=== PATIENT | male | born 1935 | race African-American/Black ===

== ENCOUNTER 2017-10-28 08:56 | Day surgery (SDC) | payer OTHER ==
[2017-10-28] VITALS (7 sets, daily range): BP systolic 124–144; BP diastolic 83–97; PULSE 69–90; RESP 16–20; TEMP 97.5–97.8; O2SAT 92–96
[~2017-10-28] VITALS: Ht 180.3 cm; Wt 97.5 kg
[~2017-10-28 08:56] MED LIST: ALPR0.25 PO; CLON.1 PO; COEN400C PO; FISH100020 PO; HYDR100T2 PO; LISI20 PO; METO50TA PO; RIVA20 PO; TAB-TAB PO
[2017-10-28] MEDS ORDERED: LACTATED RINGER'S 1000 ML IV PRN (09:30)
[2017-10-28] MEDS ORDERED: MUPIROCIN 2% OINT 1 APPLIC/GM SYR NASAL SCH (09:30)
[2017-10-28] MEDS ORDERED: NS 1000 ML IV SCH (09:30)
[2017-10-28] MEDS ORDERED: INSULIN HUMAN REGULAR 1,000 UNITS/10 ML VIAL SQ PRN (09:30)
[2017-10-28] MEDS ORDERED: CHLORHEXIDINE GLUCONATE 2 % 1 PACK (2 CLOTHS) TOPICAL PRN (09:30)
[2017-10-28] MEDS ORDERED: POVIDONE IODINE 5% (ANTISEPSIS KIT) 4 APPLICATIONS EACH NARE PRN (09:30)
[2017-10-28] MEDS ORDERED: SODIUM CHLORID 0.9% 500 ML IV PRN (09:30)
[2017-10-28] MEDS ORDERED: LORazepam 1 MG TAB SL SCH (09:30)
[2017-10-28] MEDS ORDERED: CHLORHEXIDINE GLUCONATE 2 % 1 PACK (2 CLOTHS) TOPICAL SCH (09:30)
[2017-10-28] MEDS ORDERED: POVIDONE IODINE 5% (ANTISEPSIS KIT) 4 APPLICATIONS EACH NARE SCH (09:30)
[2017-10-28] MEDS ORDERED: ceFAZolin 2 GM PREMIX 50 ML IV SCH (09:30)
[2017-10-28] MEDS ORDERED: METOPROLOL TARTRATE 25 MG TAB PO PRN (09:30)
[2017-10-28] MEDS ORDERED: DILT0.05 PO (09:56)
[2017-10-28] MEDS ORDERED: FURO40TA PO (09:56)
[2017-10-28] MEDS ORDERED: TAMS0.4C4 PO (09:56)
[2017-10-28] MEDS ORDERED: KLOR20TA3 PO (09:56)
[2017-10-28] MEDS ORDERED: XARE15TA PO (09:56)
[2017-10-28] MEDS ORDERED: METO50TA PO (09:56)
[2017-10-28] MEDS ORDERED: LISI40TA PO (09:56)
[2017-10-28 10:03] LABS: BASOPHIL % 0.7 % (0.0-2.0); EOSINOPHIL % 0.9 % (0.0-4.0); HEMATOCRIT 50.7 % (39.0-51.0); HEMO FLAGS DIFF FINAL; LYMPH % 23.8 % (9.0-44.0); LYMPHOCYTE # 1.1 TH/MM3 (1.0-4.8); MEAN CELL VOLUME 77.9 FL (80.0-100.0); MEAN CORPUSCULAR HEMOGLOBIN 24.1 PG (27.0-34.0); MEAN CORPUSCULAR HGB CONC 30.9 % (32.0-36.0); MONO % 11.8 % (0.0-8.0); NEUT % 62.8 % (16.0-70.0); PLATELET COUNT 159 TH/MM3 (150-450); RED BLOOD COUNT 6.51 MIL/MM3 (4.50-5.90); RED CELL DISTRIBUTION WIDTH 19.5 % (11.6-17.2); WHITE BLOOD COUNT 4.7 TH/MM3 (4.0-11.0)
[2017-10-28 10:19] LABS: POTASSIUM 3.3 MEQ/L (3.5-5.1)
[2017-10-28] MEDS ORDERED: VANCOMYCIN 1000 MG/NS 250 ML IV SCH ×2 (10:30)
[2017-10-28 10:53] LABS: APTT (PATIENT) 32.2 SEC (24.3-30.1); INTERNATIONAL NORMALIZED RATIO 1.5 RATIO; PROTHROMBIN TIME - PATIENT 16.7 SEC (9.8-11.6)
[2017-10-28] MEDS ORDERED: LIDOCAINE HCL 2% 50 ML VIAL ONE (14:11)
[2017-10-28] MEDS ORDERED: VANCOMYCIN 500 MG VIAL ONE (14:11)
--- NOTE | 2017-10-28 14:20 | CATHPROC ---
[facility] HIS Report Study Information Study Number Admission Scheduled Start Study Start [id number] Oct 28 2017 8:56AM 10/28/2017 Oct 28 2017 11:58AM [place] [facility] Cardiac Pacer/ICD Admit Source Facility Department Other [facility] - Foreign Exchange Clerk Physician and Clinical Staff Initial Dee Song Printed Circuit Board Drafter Flaco Henson,RT(R) Printed Circuit Board Drafter Sabina Saez,LENS BLOCKER TECH2 Other Anesthesia, MANAGER LOAN Recorder Magalis Rey,GRETCHEN Scrub Stefanie Sheridan,KLEBER Procedures Performed Procedure Cardioversion Equipment Time Transit Survey Worker Description Size Mfg Part Number Used/Scraped BIOSENSE ETIENNE CATHETER, CELSIUS DS, 8MM, F [id number] 13:36 FR 7 Used INC. TYPE QUAD *[id number] 13:34 [employer] INDUSTRIES PACK, CCL CUSTOM * Used *[id number] 13:34 [employer] PACER GONZALEZ, LIMB * 2530 *[id number] Used [id number] 13:34 [employer] BLANKET,WARM AIR CCL * Used *[id number] 781198 13:35 [employer] MED[employer] CATHETER, JSN, QUAD FR 5 Used *[id number] 299750 13:35 [employer] MED[employer] CATHETER, JSN, QUAD FR 5 Used *[id number] 413059 13:35 [employer] MED[employer] CATHETER, JSN, QUAD FR 5 Used *[id number] 13:34 [employer] ELECTRODE KIT, ZHEN X SURFACE * Used *[id number] 779844 13:35 [employer] SHEATH, EPS, FR5 FAST CATH FR 5 Used *[id number] 739779 13:35 [employer] MED[employer] SHEATH, EPS, FR5 FAST CATH FR 5 Used *[id number] 312388 13:35 [employer] SHEATH, EPS, FR5 FAST CATH FR 5 Used *[id number] 548426 13:35 [employer] MED[employer] SHEATH, EPS, FR6 FAST CATH FR 6 Used *[id number] 296270 13:35 [employer] SHEATH, EPS, FR8 FAST CATH FR 8 Used *[id number] CATHETER, ACUNAV FR10 ICE [id number] 13:55 KARLEE FR 10 Used (KARLEE) *[id number] [facility] PAD, ELECTROSURGICAL 13:34 * [id number] *[id number] Used SURGICAL GROUNDING (BLUE) History: Allergies Allergy Reaction No Known Allergies History: Risk Factors Hypertension Dyslipidemia Previous Heart Failure Yes Yes Yes Labs Hgb (g/dl) Hct (%) RBC (MIL/MM3) WBC (l/cumm) Platelets (thousands) 11.60-17.00 35.00-51.00 4.00-5.90 4.00-11.00 150.00-450.00 15.0 50 6.5 4.7 159 Glucose (mg/dl) BUN (mg/dl) Creatinine (mg/dl) BUN:Creatinine (1:x) 74.00-106.00 7.00-18.00 0.50-1.30 10.00-20.00 89 27 1.9 14.2 Na (meq/l) K (meq/l) 136.00-145.00 3.50-5.10 142 3.3 INR (PTT:PT) 0.90-1.10 1.5 Medication Medication Total Dose (Bolus/Oral) Medication Total Dosage/Unit 1% XYLOCAINE 40 mL Medications (Bolus/Oral) Medication Time Given Dosage/Unit Administered By Reason 1% XYLOCAINE 10/28/2017 1:39:00 PM 20 mL Neri, Dee 20 mL 1% XYLOCAINE given in lab by Dee He in Left Groin via Subcutaneous. 1% XYLOCAINE 10/28/2017 1:39:29 PM 20 mL Neri, Hanscy 20 mL 1% XYLOCAINE given in lab by Dee He in Right Groin via Subcutaneous. Initial Case Assessment Cardiovascular HR Rhythm NIBP Chest Pain 87 aflttr 168/110 0 Edema Present Skin color Skin Mild Normal Warm Dry Circulatory - Right Pulses Dorsalis Pedis Radial 1 1 Scale (0,1,2,3,4,d) Circulatory - Left Pulses Dorsalis Pedis Radial 1 1 Scale (0,1,2,3,4,d) Circulatory - Lower Extremities Color Lower Right Color Lower Left Normal Normal Neurological State Oriented to time-place- Alert Moves all extremities person Respiration - General Respiration Rate SpO2 (%) (B/min) 20 95 Chronological Log Time Study Chronological Log 12:57:22 Patient arrived via Bed. 12:57:28 Patient Name, D.O.B, / Armband Verified By R.N. 12:57:31 Consent signed by the physician and the patient and verified by the Foreign Exchange Clerk staff. 12:57:35 Pre-op and post- op instructions given; patient acknowledges understanding of instructions. 12:57:44 Verbal Stimulation=2 Physical Stimulation=2 Airway=2 Respiration=2 TOTAL=8. (0=absent, 1=li mited, 2=present) 12:58:58 Patient has been NPO for More than 6Hrs. 12:59:13 Patient Warmer Placed on the Table. 12:59:17 Disposable Defibrillator Pads Placed On Patient. 13:01:08 Skin Breakdown- 13:01:21 Rochelle Prominences Protected 13:01:25 A # 20 IV was noted in the Antecubital (left). Grade = 0 0.9ns kvo 13:01:26 A # 20 IV was noted in the Antecubital (right). Grade = 0 0.9ns kvo 13:01:27 History and physical on the chart or being dictated. 13:01:35 Anesthesia at bedside. Assumes care of patient. Assessment: Initial Case, HR=87 BPM, Rhythm=aflttr, ZFVT=833/110 mmhg, Chest Pain=0, Edema=Mild , Color=Normal, Skin = Warm, Dry Right Pulses: Feliciano Ped=1, Radial=1 Left Pulses: Feliciano Ped=1, Radial=1 13:17:32 Lower Right Extremities: Color=Normal Lower Left Extremities: Color=Normal Neurological: State=Alert, Ox3, ZAVALA Respiration: Resp=20 B/min, SpO2=95 % 13:18:23 Table restraints applied according to hospital policy 13:20:30 MD arrived. 13:25:54 Condom catheter placced for pt comfort and by request. 13:36:24 Bilateral groins prepped with 2% chlorhexidine, and draped after a 3 minute waiting time. Time Out. Correct patient, procedure, procedure equipment, site and side verified with physicia n present. Time 13:38:17 concurred by MD, individual staff and MANAGER LOAN. Time Out #2 - Consents verified, patient in correct position, all results are labled and displa yed, safety precautions 13:38:40 taken, antibiotics administered. Time out concurred by MD, individual staff and MANAGER LOAN in procedu re 13:38:51 Case Start 13:39:00 20 mL 1% XYLOCAINE given in lab by Dee He in Left Groin via Subcutaneous. 13:39:12 Vascular access was obtained in the Fem Art (left). Pressure held by DC. switched to r ight groin. 13:39:29 20 mL 1% XYLOCAINE given in lab by Dee He in Right Groin via Subcutaneous. 13:39:54 Vascular access was obtained in the Fem Vein (right). 13:39:58 Vascular access was obtained in the Fem Vein (right). 13:40:00 Vascular access was obtained in the Fem Vein (right). 13:40:18 Vascular access was obtained in the Fem Vein (right). 13:41:45 A SHEATH, EPS, FR5 FAST CATH FR 5 was advanced into the Fem Vein (right) using the Modified Seldinger technique. 13:41:52 A SHEATH, EPS, FR5 FAST CATH FR 5 was advanced into the Fem Vein (right) using the Modified Seldinger technique. 13:46:28 A SHEATH, EPS, FR6 FAST CATH FR 6 was advanced into the Fem Vein (right) using the Modified Seldinger technique. 13:46:41 A SHEATH, EPS, FR8 FAST CATH FR 8 was advanced into the Fem Vein (right) using the Modified Seldinger technique. A CATHETER, JSN, QUAD FR 5 was advanced vis Fem Vein (right) and placed in the CS. Placement w as visually 13:49:59 confirmed under fluoroscopy. A CATHETER, JSN, QUAD FR 5 was advanced vis Fem Vein (right) and placed in the HRA. Placement was visually 13:52:13 confirmed under fluoroscopy. A CATHETER, JSN, QUAD FR 5 was advanced vis Fem Vein (right) and placed in the HIS. Placement was visually 13:54:35 confirmed under fluoroscopy. A CATHETER, CELSIUS DS, 8MM, F TYPE QUAD FR 7 was advanced vis Fem Vein (right) and placed in the RA. 13:55:25 Placement was visually confirmed under fluoroscopy. 13:57:24 ABLATION IN PROGRESS 14:04:24 ECG rhythm of ~RHYTHMS~ noted. Patient cardioverted at 200 joules. Success LEFT ATRIAL TAC HYCARDIA 14:05:00 ABLATION DONE 14:05:05 Case End 14:09:03 THIS PORTION OF THE CASE IS COMPLETE, IT WILL NOW TRANSITION INTO AN ICD IMPLANT End Study - Contrast Media Used In Study Contrast Total Opened (mL) Total Used (mL) Total Wasted (mL) Unspecified 0 0 0 End Study - Maximum Contrast Load Max Contrast Load (mL) 256.1 End Study - Radiation Exposure Fluoro Time (minutes) 6.5 End Study - Patient Disposition Complications Transferred To No Telemetry Bed
--- NOTE | 2017-10-28 15:18 | CATHPROC ---
[facility] HIS Report Study Information Study Number Admission Scheduled Start Study Start [id number] Oct 28 2017 8:56AM 10/28/2017 Oct 28 2017 2:12PM [place] [facility] Electrophysiology Study Admit Source Facility Department Other [facility] - Client Services Associate Physician and Clinical Staff Initial Dee Song District Traffic Chief Stefanie Sheridan,KLEBER Other Anesthesia, GOLF CLUB MAKER Recorder Magalis Rey,RN Scrub Se, Sabina,FLAT[employer] DRIVER TECH2 Procedures Performed Procedure Lead Insertion Equipment Time Steward/Stewardess Description Size Mfg Part Number Used/Scraped DERMABOND, ADHESIVE SKIN [id number] 14:14 CORDIS/PACER * Used GLUE MINI *[id number] 14:14 MEDLINE INDUSTRIES SUTURE, STRIP PLUS 1/2" * Used *[id number] 14:14 MEDLINE PACER GONZALEZ, LIMB * 2530 *[id number] Used [id number] 14:14 MEDLINE PACER PACK, PACER CUSTOM * Used *[id number] 14:24 Orca Digital PACER SAFE SHEATH, FR7, 13CM FR 7 [id number] Used 14:24 [employer] Digital PACER SAFE SHEATH, FR7, 13CM FR 7 [id number] Used 14:27 Needle Sponge Count 2 22 Used 14:27 Needle Sponge Count 20 200 Used 14:24 Needle Sponge Count 3 3 Used SUTURE, 0 ETHIBOND [CT1] (CX21D), 8pk SUTURE, 2-0 VICRYL [CT1] ([id number]) SUTURE, 2-0 VICRYL [CT1] (ZCC325W) [id number] 14:14 [employer] BLANKET,WARM AIR CCL * Used *[id number] DEFIBRILLATOR, FORTIFY 14:56 [facility] [employer]ICAL VVEVVVIRV [id number] Used SHANIA GUTIÉRREZ LEAD, DURATA ACTIVE FIXATION 7121Q-65 14:39 [facility] [employer]ICAL 65CM Used 7121/65 *[id number] LEAD, TENDRIL SDX 1688TC 1688TC/52CM 14:44 [facility] [employer] 52CM Used 52CM *[id number] [facility] PAD, ELECTROSURGICAL 14:14 * [id number] *[id number] Used SURGICAL GROUNDING ORANGE 4273-8812 14:14 [employer] AFSHIN. / * Used *96486 Equipment Model, Serial, Lot Number and Expiration Data Description Model Number Serial Number Lot Number Expiration Date DEFIBRILLATOR, FORTIFY ASSURA [id number] 07-31-2019 DR PEREZ, DURATA ACTIVE FIXATION 7121Q-65 [id number] 11-30-2017 7121/65 LEAD, TENDRIL SDX 1688TC 52CM 1688TC [id number] 01-29-2020 Medication Medication Total Dose (Bolus/Oral) Medication Total Dosage/Unit 2% XYLOCAINE 50 mL Medications (Bolus/Oral) Medication Time Given Dosage/Unit Administered By Reason 2% XYLOCAINE 10/28/2017 2:36:14 PM 50 mL Anesthesia, GOLF CLUB MAKER 50 mL 2% XYLOCAINE given in lab by Anesthesia, GOLF CLUB MAKER via Subcutaneous. Ordered by Dee He. Medication (Drip) Medication Time Given Dosage/Unit Concentration/Unit Diluent (ml) Solution ANCEF 10/28/2017 2:10:00 PM 2 g 2 g ANCEF given in lab by Anesthesia, GOLF CLUB MAKER via Peripheral IV. Ordered by Dee He. Reason: As pe r physicians verbal order. VANCOMYCIN DRIP 10/28/2017 2:10:10 PM 1 g 1 g VANCOMYCIN DRIP given in lab by Anesthesia, GOLF CLUB MAKER via Peripheral IV. Ordered by Dee He. Rachel son: As per physicians verbal order. Final Case Assessment Cardiovascular HR NIBP 68 97/66 Edema Present Skin color Skin None Normal Warm Dry Neurological State Oriented to time-place- Alert Moves all extremities person Respiration - General Respiration Rate SpO2 (%) O2 (lpm) (B/min) 12 98 6 Chronological Log Time Study Chronological Log 2 g ANCEF given in lab by Anesthesia, GOLF CLUB MAKER via Peripheral IV. Ordered by Dee He. Reason : As per physicians 14:10:00 verbal order. 1 g VANCOMYCIN DRIP given in lab by Anesthesia, GOLF CLUB MAKER via Peripheral IV. Ordered by Donte He Reason: As per 14:10:10 physicians verbal order. 14:15:00 Initial procedure has been completed. Beginning additional procedure. 14:15:46 NOTE: This patient is undergoing an additional procedure while still in the Cardiac Cath L ab. 14:16:01 2% CHLORHEXIDINE GLUCONATE WASH AND NASAL SWIPE DONE PRIOR TO PROCEDURE. 14:16:23 Bovie ground pad applied to: RIGHT HIP 14:16:41 Left Upper Chest Prepped Times Two. First Sponge And Instrument Count Done by Stefanie Sheridan RCIS. 14:18:17 Hypo's: 3, Sponges: 20, Bovie/scratch: 2 Sutures: 10, Blades: 1, Instruments: 26, Syveck Patches: 0 Time Out. Correct patient, procedure, procedure equipment, site and side verified with physici an present. Time 14:34:10 concurred by MD, individual staff and GOLF CLUB MAKER. Time Out #2 - Consents verified, patient in correct position, all results are labled and displ ayed, safety precautions 14:34:11 taken, antibiotics administered. Time out concurred by MD, individual staff and GOLF CLUB MAKER in proced ure 14:34:13 Case Start 14:36:14 50 mL 2% XYLOCAINE given in lab by Anesthesia, GOLF CLUB MAKER via Subcutaneous. Ordered by Damion He. 14:37:06 Vascular access was obtained in the Subclav. Vein (Lft. 14:37:26 Vascular access was obtained in the Subclav. Vein (Lft. 14:38:09 Surgical Incision Made. LEFT UPPER CHEST 14:38:30 A pocket was created at the L Upper Chest. 14:41:30 A SAFE SHEATH, FR7, 13CM FR 7 was advanced into the Subclav. Vein (Lft using the Modified S eldinger technique. 14:41:42 A LEAD, DURATA ACTIVE FIXATION 7121/65 65CM was inserted and positioned in the RV. 14:42:33 Lead placement verified under fluoroscopy 14:42:34 The RV lead impedance and threshold being tested. 14:46:08 A SAFE SHEATH, FR7, 13CM FR 7 was advanced into the Subclav. Vein (Lft using the Modified S eldinger technique. 14:46:20 A LEAD, TENDRIL SDX 1688TC 52CM 52CM was inserted and positioned in the RA. 14:55:29 Lead placement verified under fluoroscopy 14:55:34 The Atrial lead impedance and threshold is being tested. 14:55:36 The Atrial lead was sutured to the fascia. 14:57:26 Pocket flushed with antibiotic solution 14:57:30 A DEFIBRILLATOR, SADIA JAUREGUI DR VVEVVVIRV was connected and placed in the pocket. 15:00:13 Sheath(s) left in place, secured, 0.9ns kvo connected and will be removed in Holding Area. Left groin site wnl. 15:00:47 The pocket was closed. Second Sponge And Instrument Count Done by Dee He. 15:00:53 Hypo's: 3, Sponges: 20, Bovie/scratch: 2 Sutures: ~SUTURE~, Blades: 1, Instruments: ~INSTRU~, Syveck Patches: ~SYVECK PATCH~ 15:01:38 Implant Procedure was performed. 15:01:42 A ICD Implant . (Dual) 15:03:16 Case End The Final Sponge And Instrument Count Done by Dee He. 15:05:41 Hypo's: 3, Sponges: 20, Bovie/scratch: 2 Sutures: 10, Blades: 1, Instruments: 26, Syveck Patches: ~SYVECK PATCH~ 15:08:28 A sling will be placed on the affected arm. 15:08:46 Sterile dressing applied to site 15:08:47 No case complications noted. 15:08:48 Cine recording checked. 15:09:31 Implantable Device card placed in patient's chart. Assessment: Final Case, HR=68 BPM, NIBP=97/66 mmhg, Edema=None, Color=Normal, Skin = Warm, Dry 15:15:10 Neurological: State=Alert, Ox3, ZAVALA Respiration: Resp=12 B/min, SpO2=98 %, O2=6 lpm 15:24:50 PACU called. Spoke to Andrzje. 15:25:00 Bedside Report will be given. 15:30:25 Patient moved to stretcher Dr He made aware of pt transported to PACU by Anesthesia d/t pt not waking up appropriately. Pt restless, moves 15:47:00 all extremities well and strong. End Study - Contrast Media Used In Study Contrast Total Opened (mL) Total Used (mL) Total Wasted (mL) Unspecified 0 0 0 End Study - Radiation Exposure Fluoro Time (minutes) 4.0 End Study - Patient Disposition Complications Transferred To No Telemetry Bed
[2017-10-28] MEDS ORDERED: ONDANSETRON HCL 4 MG/2 ML VIAL IV PUSH PRN (15:30)
[2017-10-28] MEDS ORDERED: TEMAZEPAM 15 MG CAP PO PRN (15:30)
[2017-10-28] MEDS ORDERED: oxyCODONE/ACETAMINOPHEN 5 MG/325 MG TAB PO PRN ×2 (15:30)
[2017-10-28] MEDS ORDERED: SODIUM CHLORIDE 0.9% FLUSH 10 ML FLUSH IV FLUSH PRN (15:30)
[2017-10-28] MEDS ORDERED: DO NOT ADM ANY ANTICOAGULANT DRUGS PRN (15:55)
--- NOTE | 2017-10-28 17:04 | EKG ---
Date Performed: 10/28/2017 Time Performed: 16:44:34 PTAGE: 82 years EKG: Baseline artifact present Probable Sinus rhythm with premature atrial contractions LOW QRS VOLTAGE IN EXTREMITY LEADS SEPTAL MYOCARDIAL INFARCTION , PROBABLY OLD INFERIOR MYOCARDIAL INFARCTION , PROBABLY OLD Nonspecific T wave changes ABNORMAL ECG N o prior electrocardiogram available for comparison. DOCTOR: Gonzalo Amezquita Interpretating Date/Time 10/28/2017 17:03:34
--- NOTE | 2017-10-28 17:12 | RADRPT ---
EXAM DATE/TIME: 10/28/2017 16:46 [place] COMPARISON: No previous studies available for comparison. INDICATIONS : Post op pacemaker. MEDICAL HISTORY : None. SURGICAL HISTORY : None. ENCOUNTER: Initial ACUITY: 1 day PAIN SCORE: 0/10 LOCATION: Bilateral chest FINDINGS: We have no comparison exams. Pacemaker device is noted with control pack over the left chest. There i s apical pleuroparenchymal density as well as blunting of the left costophrenic angle obscuring the l eft diaphragm. The appearance is worrisome for subpleural process such as effusion or hematoma. This might be more definitively assessed with CT if clinically indicated. The right chest is clear with no rmal inflation. The heart is mildly enlarged. CONCLUSION: Abnormal chest appearance. Hemothorax on the left is not excluded. Osman Patterson MD on October 28, 2017 at 17:08 Board Certified Radiologist. This report was verified electronically.
[2017-10-28] MEDS ORDERED: RIVAROXABAN 15 MG TAB PO SCH (18:00)
[2017-10-28] MEDS: RIVAROXABAN 15 MG TAB PO SCH (19:29)
[2017-10-28] MEDS: TAMSULOSIN HCL 0.4 MG CAP PO SCH (21:00)
[2017-10-28] MEDS ORDERED: NON-FORMULARY DRUG (Lisinopril 40 MG) PO SCH (21:00)
[2017-10-28] MEDS: SODIUM CHLORIDE 0.9% FLUSH 10 ML FLUSH IV FLUSH SCH (21:07)
[2017-10-28] MEDS: FUROSEMIDE 40 MG TAB PO SCH (21:07)
[2017-10-28] MEDS: POTASSIUM CHLORIDE 20 MEQ CONTROLLED RELEASE TAB PO SCH (21:08)
[2017-10-28] MEDS: ceFAZolin 2 GM PREMIX 50 ML IV SCH (21:08)
[2017-10-28] MEDS: METOPROLOL TARTRATE 50 MG TAB PO SCH (21:08)
[2017-10-28] MEDS: LISINOPRIL 20 MG TAB PO SCH (21:08)
[2017-10-29] VITALS (13 sets, daily range): BP systolic 137–142; BP diastolic 98–108; PULSE 74–92; RESP 18; TEMP 97.8–98.5; O2SAT 94–95
[2017-10-29] MEDS: ceFAZolin 2 GM PREMIX 50 ML IV SCH (06:18)
--- NOTE | 2017-10-29 08:14 | PD.CARD ---
DUAL CHAMBER DEFIB IMPLANT PROCEDURE DATE: Oct 28, 2017 NYHA Classification: Class II (Mild) Prevention: Primary Dual Chamber Defib Mr. Aly is a 82-year-old male with congestive heart failure , cardiomyopathy, ejection fraction 20%, who undergo dual-chamber defibrillator implantation and device testing. The risks, the nature and the benefit of the procedure were clearly stated to his . The risks include pneumothorax, cardiac perforation, stroke, and even . He understood and agreed to proceed. PROCEDURE As written informed consent was obtained prior to electrophysiology study, the patient was kept on the table where he was prepared and draped in the usual sterile fashion. Conscious sedation was initiated and maintained throughout the procedure by the anesthesiologist. Once sedation was verified, the left infraclavicular area was anesthetized with 2% Xylocaine. Using modified Seldinger technique, the left subclavian vein was cannulated on two occasions and two guidewires were advanced. Then, using #11 blade scalpel, a 3 centimeter incision was made two fingerbreadths below the clavicle. Dissection was then taken down to deep fascial layer using Bovie cautery and blunt dissection. Into the inferomedial direction, a device pocket was dissected. Then the wires were dissected into the pocket. A 2-0 Vicryl suture was placed around the wires to prevent back-bleeding. At this point, over the lateral wire, a 7-Greenlandic dilator and introducer was advanced. As the dilator and wire were removed, an active fixation right ventricular pacing, sensing and defibrillatory lead was advanced. After adequate pacing and sensing thresholds were obtained, the lead was secured in the pocket using #2 Ethibond suture. Then, over the remaining wire, a 7-Greenlandic dilator introducer was advanced. As the dilator and wire were removed, an active fixation right atrial pacing and sensing lead was advanced. After adequate pacing and sensing thresholds were obtained, the lead was secured in the pocket using #2 Ethibond suture. At that point, the pocket was copiously irrigated with antibiotic solution. The leads were connected to the generator and placed in the pocket. NIPS was not performed. I did proceed with wound closure. The deep fascial layer was approximated using 2-0 Vicryl suture in a continuous fashion. The subcutaneous layer was approximated using 2-0 Vicryl suture in a continuous fashion. The subcuticular layer was approximated with 2-0 Vicryl suture in a continuos fashion. Dermabond adhesive was applied to the wound followed by a sterile pressure dressing. There was no complication. The patient tolerated procedure. Blood loss minimal. IMPLANTED HARDWARE The implanted defibrillator generator is a [employer] model number [id number], serial number [id number]. The right atrial pacing and sensing lead is a st Jase model number 1688TC-52, serial number [id number]. The right ventricular pacing, sensing defibrillatory lead is a [employer] J[employer] model number 7121Q-65. Serial # [id number]. THRESHOLDS The right atrial pacing threshold in bipolar mode was 1.0 volts at 0.5 milliseconds. Lead impedance 560 ohms and P wave at 5.0 millivolts. The right ventricular pacing threshold in bipolar mode was 1.0 volts at 0.5 milliseconds. Lead impedance 580 ohms and R wave at 6.0 millivolts. The right ventricle defibrillatory threshold was not measured. SETTINGS The device set in a DDD-50 upper limit 120 beats per minute. Defibrillatory portion for two zones, one zone for ventricular tachycardia between 160 to 240 beats per minute. Initial therapy consists of one burst of ATP, one ramp, 81%, 10 pulse, 10 second decremental, followed by a 20, then 30 and all subsequent shocks at 40-joules defibrillatory shock. The second zone for ventricular fibrillation above 240 beats, first therapy at 30 and all subsequent shocks at 440-joules defibrillatory shock. CONCLUSIONS Successful defibrillator implantation. COMMENT AND RECOMMENDATIONS The patient will be transferred to telemetry unit. He will be observed. Dee He MD Oct 29, 2017 08:14
--- NOTE | 2017-10-29 08:33 | PD.CARD.PN ---
Subjective Subjective Remarks Feels okay. Objective Medications Current Medications Medications (Trade) Dose Ordered Sig/Daniel Route Start Time Stop Time Status Last Admin Lactated Ringer's 1,000 ml @ 30 mls/hr Q24H PRN IV 10/28/17 09:30 10/31/17 09:29 Sodium Chloride 500 ml @ 30 mls/hr [id number] PRN IV 10/28/17 09:30 10/31/17 09:29 (Lopressor) 25 mg PROCEDURAL NURSE PRN PO 10/28/17 09:30 10/31/17 09:29 (NovoLIN R INJ) See Protocol Table ... PROCEDURAL NURSE PRN SQ 10/28/17 09:30 10/31/17 09:29 Sodium Chloride 1,000 ml @ 30 mls/hr Q24H IV 10/28/17 09:30 Cefazolin Sodium/ Dextrose 50 ml @ 100 mls/hr PROCEDURAL NURSE IV 10/28/17 09:30 10/31/17 09:29 10/27/17 14:10 (Ativan) 1 mg PROCEDURAL NURSE SL 10/28/17 09:30 10/31/17 09:29 (Betadine 5% Antisepsis Kit) 2 applic PROCEDURAL NURSE EACH NARE 10/28/17 09:30 10/31/17 09:29 10/28/17 09:57 (Bactroban Nasal 2% Oint) 1 applic PROCEDURAL NURSE NASAL 10/28/17 09:30 10/31/17 09:29 (Chlorhexidine 2% Cloth) 3 pack PROCEDURAL NURSE TOPICAL 10/28/17 09:30 10/31/17 09:29 10/28/17 09:57 Vancomycin HCl 1000 mg/Sodium Chloride 250 ml @ 250 mls/hr PROCEDURAL NURSE IV 10/28/17 10:30 10/31/17 10:29 10/28/17 14:10 Cefazolin Sodium/ Dextrose 50 ml @ 100 mls/hr Q8H IV 10/28/17 22:00 10/29/17 14:29 10/29/17 06:18 (Restoril) 15 mg HS PRN PO 10/28/17 15:30 (Zofran Inj) 4 mg Q4H PRN IV PUSH 10/28/17 15:30 (NS Flush) 2 ml BID IV FLUSH 10/28/17 21:00 10/28/17 21:07 (NS Flush) 2 ml UNSCH PRN IV FLUSH 10/28/17 15:30 (Percocet 5-325 Mg) 1 tab Q4H PRN PO 10/28/17 15:30 (Percocet 5-325 Mg) 2 tab Q4H PRN PO 10/28/17 15:30 (Lasix) 40 mg BID PO 10/28/17 21:00 10/28/17 21:07 (Lopressor) 50 mg BID PO 10/28/17 21:00 10/28/17 21:08 (KCl) 20 meq Q12HR PO 10/28/17 21:00 10/28/17 21:08 (Flomax) 0.4 mg DAILY PO 10/28/17 21:00 10/28/17 21:00 (Prinivil) 40 mg BID PO 10/28/17 21:00 10/28/17 21:08 Miscellaneous Information ALL NURSING DEPARTME... UNSCH PRN .XX 10/28/17 15:55 10/29/17 15:54 (Xarelto) 15 mg DAILY PO 10/28/17 18:00 10/28/17 19:29 Vital Signs / I&O Vital Signs Date Time Temp Pulse Resp B/P (MAP) Pulse Ox O2 Delivery O2 Flow Rate FiO2 10/29/17 07:34 94 Room Air 10/29/17 07:34 98.5 89 18 137/98 (111) 94 10/29/17 07:00 79 10/29/17 06:00 83 10/29/17 05:00 80 10/29/17 04:00 90 10/29/17 03:00 97.8 80 18 142/108 (119) 95 10/29/17 03:00 95 Room Air 10/29/17 03:00 78 10/29/17 02:00 82 10/29/17 01:00 78 10/29/17 00:00 74 10/28/17 23:00 97.6 69 16 127/83 (98) 95 10/28/17 23:00 95 Nasal Cannula 2.00 10/28/17 23:00 70 10/28/17 22:00 78 10/28/17 21:00 84 10/28/17 20:00 80 10/28/17 19:00 97.6 83 16 136/93 (107) 96 10/28/17 19:00 78 10/28/17 19:00 96 Nasal Cannula 2.00 10/28/17 18:10 97.8 76 20 124/91 (102) 96 10/28/17 17:15 79 17 128/72 (90) 98 Nasal Cannula 2 10/28/17 17:00 77 17 124/76 (92) 98 Nasal Cannula 2 10/28/17 16:45 81 17 149/94 (112) 100 Nasal Cannula 2 10/28/17 16:30 80 17 150/97 (114) 97 Nasal Cannula 3 10/28/17 16:15 80 17 146/90 (108) 97 Nasal Cannula 3 10/28/17 16:00 78 16 135/89 (104) 96 Nasal Cannula 3 10/28/17 15:51 97.8 79 16 128/89 (102) 96 Nasal Cannula 3 10/28/17 09:50 97.5 90 18 144/97 (113) 92 I/O 10/28/17 10/28/17 10/28/17 10/29/17 10/29/17 10/29/17 07:00 15:00 23:00 07:00 15:00 23:00 Intake Total 50 ml 720 ml Output Total 0 ml 925 ml Balance 50 ml -205 ml Intake Oral 720 ml IV Total 50 ml Output Urine Total 0 ml 925 ml Physical Exam GENERAL: Well-nourished, well-developed patient. SKIN: Warm and dry. Left chest wall incision well approximated without erythema or drainage. Mild bruising around site. Groin sites soft without bleeding or bruising. HEAD: Normocephalic. EYES: No scleral icterus. No injection or drainage. NECK: Supple, trachea midline. No JVD or lymphadenopathy. CARDIOVASCULAR: Regular rate and rhythm without murmurs, gallops, or rubs. RESPIRATORY: Breath sounds equal bilaterally. No accessory muscle use. GASTROINTESTINAL: Abdomen soft, non-tender, nondistended. EXTREMITIES: No cyanosis, or edema. NEUROLOGICAL: Awake, alert, and oriented x 3. Non-focal. Laboratory Laboratory Tests Test 10/28/17 09:38 10/28/17 10:20 White Blood Count 4.7 TH/MM3 Red Blood Count 6.51 MIL/MM3 Hemoglobin 15.7 GM/DL Hematocrit 50.7 % Mean Corpuscular Volume 77.9 FL Mean Corpuscular Hemoglobin 24.1 PG Mean Corpuscular Hemoglobin Concent 30.9 % Red Cell Distribution Width 19.5 % Platelet Count 159 TH/MM3 Mean Platelet Volume 11.1 FL Neutrophils (%) (Auto) 62.8 % Lymphocytes (%) (Auto) 23.8 % Monocytes (%) (Auto) 11.8 % Eosinophils (%) (Auto) 0.9 % Basophils (%) (Auto) 0.7 % Neutrophils # (Auto) 3.0 TH/MM3 Lymphocytes # (Auto) 1.1 TH/MM3 Monocytes # (Auto) 0.6 TH/MM3 Eosinophils # (Auto) 0.0 TH/MM3 Basophils # (Auto) 0.0 TH/MM3 CBC Comment DIFF FINAL Differential Comment Blood Urea Nitrogen 27 MG/DL Creatinine 1.90 MG/DL Random Glucose 89 MG/DL Calcium Level 8.6 MG/DL Sodium Level 142 MEQ/L Potassium Level 3.3 MEQ/L Chloride Level 102 MEQ/L Carbon Dioxide Level 31.0 MEQ/L Anion Gap 9 MEQ/L Estimat Glomerular Filtration Rate 41 ML/MIN Prothrombin Time 16.7 SEC Prothromb Time International Ratio 1.5 RATIO Activated Partial Thromboplast Time 32.2 SEC Imaging Last Impressions Chest X-Ray 10/28/17 0000 Signed Impressions: Service Date/Time: Saturday, October 28, 2017 16:46 - CONCLUSION: Abnormal chest appearance. Hemothorax on the left is not excluded. Osman Patterson MD Assessment and Plan Problem List: (1) Atrial tachycardia ICD Codes: I47.1 - Supraventricular tachycardia Plan: Stable status post ablation of left atrial tachycardia. Continue Xarelto. (2) S/P ICD (internal cardiac defibrillator) procedure ICD Codes: Z95.810 - Presence of automatic (implantable) cardiac defibrillator Plan: Stable status post ICD implantation for sudden cardiac prevention. Chest x-ray shows possible hematoma. Patient declines x-ray. Clinical exam stable. Per my discussion with Dr. cody, patient can be discharged home. Marianna Darby Oct 29, 2017 08:33
[2017-10-29] MEDS ORDERED: CEPH-460 PO (08:34)
--- NOTE | 2017-10-29 08:44 | MA ---
cc: LINNETTE ELIZABETH M.D. DATE 10/28/2017 PROCEDURE PERFORMED Electrophysiology study, CS cannulation, 3-D mapping radiofrequency ablation of atrial flutter, cardioversion of left atrial tachycardia. INDICATIONS Mr. Aly is an 82-year-old gentleman with a history of atrial fibrillation, atrial flutter for the past two years, congestive heart failure, cardiomyopathy on anticoagulation who was referred for electrophysiology study and ablation. The risks, the nature and the benefit of the procedure are clearly stated to him. The risks include pneumothorax, cardiac perforation, stroke, need for open heart surgery and even . The patient understood and agreed to proceed. PROCEDURE After written informed consent was obtained, the patient was brought to the EP lab where was prepped and draped in the usual sterile fashion. Conscious sedation was initiated and maintained throughout the procedure by anesthesiologist. Once sedation verified, the right and left inguinal areas were anesthetized with 2% Xylocaine. Using modified Seldinger technique, the right femoral vein was cannulated on four occasions and four guidewires were advanced over the wire. Two 5, one 6 and an 8-Tajik Hemaquet were advanced. Access was very difficult on the left side. Then over the wires, two 5, 6 and an 8-Tajik Hemaquet were advanced. Then under fluoroscopic guidance through the 5 and 6-Tajik Hemaquet, three 5-Tajik Ken curved quadripolar electrophysiology catheters were advanced and positioned on the His, upper right atrium, as well as coronary sinus. Basic interval was measured. The patient was in atrial flutter, was entrained and it was positive. Then through the 8-Tajik Hemaquet, a Cordis Goddard F-curve 8 mm mapping radiofrequency ablation catheter was advanced. Using [employer] endocardial solution mapping system, a two-dimensional configuration of the right atrium was obtained. Then the catheter was at the critical isthmus. Radiofrequency energy was delivered. During ablation, the patient went to fast tachyarrhythmia and activation changed. There was a pullback converting into sinus rhythm and then switched to the fast tachyarrhythmia. Further burn was delivered in the area, coronary sinus was isolated. After again I did realize that the new tachyarrhythmia is coming from the left side. The patient is a good candidate for atrial fibrillation/ablation. I decided to proceed with cardioversion. A 200 sync biphasic joule was delivered that converted the patient into sinus rhythm. At that point, atrial pacing protocol was repeated again. No tachyarrhythmia was induced. Procedure was completed. All catheters were removed. The patient is going to be kept on the table and a dual-chamber defibrillator will be implanted for sudden prevention and atrial arrhythmia monitoring. No incident report. The patient tolerated procedure. Blood loss minimal. 1. Electrocardiogram: At baseline, the patient was in atrial flutter. Postprocedure, the patient is in sinus rhythm. 2. Basic interval: Base cycle length was around 530 milliseconds. Post ablation, it was around 100 milliseconds. 3. Tachyarrhythmia: Atrial flutter was mapped, entrained and ablated. Ablation was successful. Left coronary sinus was isolated. Left atrial tachycardia was cardioverted. CONCLUSION Status electrophysiology study, mapping and radiofrequency ablation of atrial flutter and cardioversion of left atrial tachycardia. COMMENT AND RECOMMENDATIONS The patient is going to be kept on the table. A dual-chamber defibrillator will be implanted. MD RYANN Cueva/AMARIS /8:14 AM /8:24 AM
[2017-10-29] MEDS: METOPROLOL TARTRATE 50 MG TAB PO SCH (09:38)
[2017-10-29] MEDS: TAMSULOSIN HCL 0.4 MG CAP PO SCH (09:38)
[2017-10-29] MEDS: FUROSEMIDE 40 MG TAB PO SCH (09:39)
[2017-10-29] MEDS: POTASSIUM CHLORIDE 20 MEQ CONTROLLED RELEASE TAB PO SCH (09:39)
[2017-10-29] MEDS: RIVAROXABAN 15 MG TAB PO SCH (09:39)
[2017-10-29] MEDS: LISINOPRIL 20 MG TAB PO SCH (09:40)
[2017-10-29] MEDS: SODIUM CHLORIDE 0.9% FLUSH 10 ML FLUSH IV FLUSH SCH (09:41)
--- NOTE | 2017-10-29 14:07 | EKG ---
Date Performed: 10/29/2017 Time Performed: 05:47:02 PTAGE: 82 years EKG: Baseline artifact present Probable Sinus rhythm with premature atrial and ventricular contractions. Left axis deviation Inferior infarct - age undet ermined Possible anterior infarct - age undetermined Lateral T wave changes are nonspecific Abnormal ECG No significant change from prior electrocardiogram. PREVIOUS TRACING : 10/28/2017 16.44 DOCTOR: Gonzalo Amezquita Interpretating Date/Time 10/29/2017 14:06:14
--- NOTE | 2017-10-30 17:33 | EKG ---
Date Performed: 10/28/2017 Time Performed: 13:34:28 PTAGE: 82 years EKG: When compared to previous tracing, patient is now in atrial Flutter, with 4:1 heart block. Ocassional premature ventricular contractions are also present. Abnormal ECG PREVIOUS TRACING : 09/15/2013 03.26.26 DOCTOR: Mireya Thacker Interpretating Date/Time 10/30/2017 17:32:51
== END 2017-10-29 11:39 | disposition home or self-care (01) ==
LOC: HDIC 08:56 → HDOC 08:56 → HCIS 17:42 → HDOC 10-29 11:39
PROVIDERS: ATTEND Internal Medicine Interventional Cardiology
DX: I11.0 Hypertensive heart disease with heart failure (principal); I50.9 Heart failure, unspecified; I42.9 Cardiomyopathy, unspecified; R06.09 Other forms of dyspnea; I48.0 Paroxysmal atrial fibrillation; I48.92 Unspecified atrial flutter; E78.5 Hyperlipidemia, unspecified; F03.90 Unspecified dementia, unspecified severity, without behavioral disturbance, psychotic disturbance, mood disturbance, and anxiety; Z79.01 Long term (current) use of anticoagulants
CPT/HCPCS: 00530; 33249; 71010; 80048; 85025; 85610; 85730; 86850; 86900; 86901; 93005; 93613; 93623; 93653; C1721; C1730; C1732; C1779; C1895; C2630; J0690; J3370; J7050

== ENCOUNTER 2017-12-27 02:53 | Inpatient (IN) | payer OTHER, MEDICARE ==
[2017-12-27] VITALS (12 sets, daily range): BP systolic 113–143; BP diastolic 78–92; PULSE 72–87; RESP 10–24; TEMP 97–97.8; O2SAT 94–100
[~2017-12-27] VITALS: Ht 175.3 cm; Wt 93.0 kg
[~2017-12-27 02:53] MED LIST changes: -ALPR0.25 PO; +CEPH-460 PO; -CLON.1 PO; -COEN400C PO; -FISH100020 PO; +FURO40TA PO; -HYDR100T2 PO; +KLOR20TA3 PO; -LISI20 PO; +LISI40TA PO; -RIVA20 PO; -TAB-TAB PO; +TAMS0.4C4 PO; +XARE15TA PO
--- NOTE | 2017-12-27 03:27 | PD ---
HPI Chief Complaint: Neuro Symptoms/ Deficits Time Seen by Provider: 03:21 Travel History International Travel<30 days: No Contact w/Intl Traveler<30days: No Traveled to known affect area: No History of Present Illness HPI Patient's 82 and arrives from [facility] due to a subdural hematoma on the left of mixed attenuation up to 10 mm in maximal width. He reports that at the point of wound care of his feet he developed some weakness in the hands when he was holding a flashlight. No loss of consciousness reported. The patient take Xarelto for arrhythmia. Recently the patient underwent pacemaker placement. Location [employer]. Onset sudden. He has had no weakness or neurologic complaints since. He denies trauma that he can remember. [facility] Past Medical History Cancer: Yes (KIDNEY) Chest Pain: No Diabetes: No (Pre-diabetic) Gastrointestinal Disorders: Yes (KIDNEY CA) Glaucoma: No Hepatitis: No Hiatal Hernia: No Hypertension: Yes Integumentary: No Thyroid Disease: No Social History Tobacco Use: Yes (FORMER) Allergies-Medications (Allergen,Severity, Reaction): Coded Allergies: No Known Allergies (Unverified , 09/14/13) Reported Meds & Prescriptions Reported Meds & Active Scripts Active Keflex (Cephalexin) 500 Mg Cap 500 Mg PO Q8H Reported Xarelto (Rivaroxaban) 15 Mg Tab 15 Mg PO DAILY Tamsulosin (Tamsulosin HCl) 0.4 Mg Cap 0.4 Mg PO DAILY Metoprolol Tartrate 50 Mg Tab 50 Mg PO BID Lisinopril 40 Mg Tab 40 Mg PO BID Klor-Con M20 (Potassium Chloride Microencaps) 20 Meq Tab 20 Meq PO Q12HR Furosemide 40 Mg Tab 40 Mg PO BID Review of Systems Except as stated in HPI: all other systems reviewed are Neg General / Constitutional: No: Fever Physical Exam Narrative GENERAL: 82-year-old male well-nourished well-developed no acute distress SKIN: Warm and dry. HEAD: Atraumatic. Normocephalic. EYES: Pupils equal and round. No scleral icterus. No injection or drainage. ENT: No nasal bleeding or discharge. Mucous membranes pink and moist. NECK: Trachea midline. No JVD. CARDIOVASCULAR: Regular rate and rhythm. RESPIRATORY: No accessory muscle use. Clear to auscultation. Breath sounds equal bilaterally. GASTROINTESTINAL: Abdomen soft, non-tender, nondistended. Hepatic and splenic margins not palpable. MUSCULOSKELETAL: Extremities without clubbing, cyanosis, or edema. No obvious deformities. NEUROLOGICAL: A and O 3. Speech memory mentation are normal. Cranial nerves III through XII are normal. Motor function is normal in all 4 extremities. PSYCHIATRIC: Appropriate mood and affect; insight and judgment normal. Data Data Last Documented VS Vital Signs Date Time Temp Pulse Resp B/P (MAP) Pulse Ox O2 Delivery O2 Flow Rate FiO2 12/27/17 03:15 97.8 79 16 115/78 (90) 95 [facility] Medical Decision Making Medical Screen Exam Complete: Yes Emergency Medical Condition: Yes Medical Record Reviewed: Yes Differential Diagnosis Intracranial hemorrhage, ischemic stroke, metabolic disarray Narrative Course Patient will be admitted due to a subdural hemorrhage on the left side. [facility] records reviewed Vital Signs Date Time Temp Pulse Resp B/P (MAP) Pulse Ox O2 Delivery O2 Flow Rate FiO2 12/27/17 03:15 97.8 79 16 115/78 (90) [address] Herndon for housekeeping lead service. Diagnosis Primary Impression: Subdural hemorrhage Admitting Information Admitting Physician Requests: Admit Denilson Robledo MD Dec 27, 2017 03:27
[2017-12-27] MEDS ORDERED: TRAM50TA PO (03:35)
[2017-12-27] MEDS ORDERED: BUME0.5T PO (03:35)
[2017-12-27] MEDS ORDERED: HYDR12.57 PO (03:35)
[2017-12-27] MEDS ORDERED: ASPI-183 PO (03:35)
[2017-12-27] MEDS ORDERED: ACETAMINOPHEN 325 MG TAB PO PRN (04:15)
[2017-12-27] MEDS ORDERED: LACTULOSE SYRUP 20 GM/30 ML CUP PO PRN (04:15)
[2017-12-27] MEDS ORDERED: MISCELLANEOUS NURSING INFORMATION XX SCH (04:15)
[2017-12-27] MEDS ORDERED: SENNOSIDES 8.6 MG TAB PO PRN (04:15)
[2017-12-27] MEDS ORDERED: CHLORHEXIDINE GLUCONATE 2 % 1 PACK (2 CLOTHS) TOP PRN (04:15)
[2017-12-27] MEDS ORDERED: BISACODYL 10 MG SUPP RECTAL PRN (04:15)
[2017-12-27] MEDS ORDERED: SODIUM CHLORIDE 0.9% FLUSH 10 ML FLUSH IV FLUSH PRN (04:15)
[2017-12-27] MEDS: SODIUM CHLOR 0.9% 1000 ML INJ 1,000 ML IV SCH ×2 (04:47→15:58)
--- NOTE | 2017-12-27 07:19 | HHI.HP ---
HPI Service Critical Care Medicine Primary Care Physician Adolfo Siddiqui MD Admission Diagnosis Left Subdural Hematoma Diagnosis: Chief Complaint: syncope Travel History International Travel<30 Days: No Contact w/Intl Traveler <30 Da: No Traveled to Known Affected Are: No History of Present Illness HPI 82 male transferred from [facility] due to a subdural hematoma on the left of mixed attenuation up to 10 mm in maximal width. He reports that at the point of wound care of his feet he developed some weakness in the hands when he was holding a flashlight. No loss of consciousness reported. The patient takes Xarelto for atrial fibrillation. Patient underwent ICD/pacemaker placement by Dr. He in late 2017. Onset sudden. He has had no weakness or neurologic complaints since. He denies trauma that he can remember. Patient was transferred from [facility] after being accepted by Dr. Brown from neurosurgery as his head CT showed left sided subdural hematoma of mixed attenuation (10 mm). He is being admitted to the critical care medicine service. I evaluated the patient following his arrival to the ICU. At that time he was resting comfortably and denied any headache, chest pain, palpitations, dizziness, nausea or any visual disturbance. He and his said that he was back in his normal state without any weakness. He does have a history of kidney problems and leg swelling as well as chronic leg wounds for which he has been followed by wound care and a drop press hand. He is prediabetic. Of note patient received Keppra 1 g IV, Kcentra 2500 units IV, aspirin 324 mg at [facility]. His ICD was interrogated per family however results not available to me at this time, will follow-up. History PFSH Past Medical History Cancer: Yes (KIDNEY) Chest Pain: No Diabetes: No (Pre-diabetic) Gastrointestinal Disorders: Yes (KIDNEY CA) Glaucoma: No Hepatitis: No Hiatal Hernia: No Hypertension: Yes Integumentary: No Thyroid Disease: No Atrial fibrillation, ablation/ICD placement for arrhythmia that at [facility] in late 2016, cardiomyopathy, renal cancer status post cryoablation, BPH, sleep apnea, IBD Social History Tobacco Use: Yes (FORMER) Allergies-Medications Allergies-Medications (Allergen,Severity, Reaction): Coded Allergies: No Known Allergies (Unverified , 09/14/13) Reported Meds & Prescriptions Reported Meds & Active Scripts Active Keflex (Cephalexin) 500 Mg Cap 500 Mg PO Q8H Reported Xarelto (Rivaroxaban) 15 Mg Tab 15 Mg PO DAILY Tamsulosin (Tamsulosin HCl) 0.4 Mg Cap 0.4 Mg PO DAILY Metoprolol Tartrate 50 Mg Tab 50 Mg PO BID Lisinopril 40 Mg Tab 40 Mg PO BID Klor-Con M20 (Potassium Chloride Microencaps) 20 Meq Tab 20 Meq PO Q12HR Furosemide 40 Mg Tab 40 Mg PO BID ROS Review of Systems Except as stated in HPI: all other systems reviewed are Neg General / Constitutional: No: Fever Physical Exam Vital Signs Vital Signs Date Time Temp Pulse Resp B/P (MAP) Pulse Ox O2 Delivery O2 Flow Rate FiO2 12/27/17 06:00 76 12/27/17 05:45 97.3 80 10 113/83 (93) 99 12/27/17 03:15 97.8 79 16 115/78 (90) 95 Physical Exam Narrative GENERAL: 82-year-old male well-nourished well-developed no acute distress SKIN: Warm and dry. HEAD: Atraumatic. Normocephalic. EYES: Pupils equal and round. No scleral icterus. No injection or drainage. ENT: No nasal bleeding or discharge. Mucous membranes pink and moist. NECK: Trachea midline. No JVD. CARDIOVASCULAR: Regular rate and rhythm. RESPIRATORY: No accessory muscle use. Clear to auscultation. Breath sounds equal bilaterally. GASTROINTESTINAL: Abdomen soft, non-tender, nondistended. Hepatic and splenic margins not palpable. MUSCULOSKELETAL: Extremities without clubbing, cyanosis, or edema. No obvious deformities. NEUROLOGICAL: A and O 3. Speech memory mentation are normal. Cranial nerves III through XII are normal. Motor function is normal in all 4 extremities. PSYCHIATRIC: Appropriate mood and affect; insight and judgment normal. Extremities: Foot wounds on left Laboratory Sodium 138, potassium 4.5, chloride 94, CO2 32, glucose 95, BUN 56, creatinine 2.24, calcium 8.9, troponin T 0.08 White count 5, hemoglobin 15.9 hematocrit 46.9, platelets [address] from outside hospital with left-sided subdural hematoma-10mm. Mixed attenuation without any mass effect Caprini VTE Risk Assessment Caprini VTE Risk Assessment: Mod/High Risk (score >= 2) VTE Pharm Contraindication: Hemorrhage Caprini Risk Assessment Model Point Value = 1 Point Value = 2 Point Value = 3 Point Value = 5 Age 41-60 Minor surgery BMI > 25 kg/m2 Swollen legs Varicose veins or History of unexplained or recurrent spontaneous Oral contraceptives or hormone replacement Sepsis (< 1 month) Serious lung disease, including pneumonia (< 1 month) Abnormal pulmonary function Acute myocardial infarction Congestive heart failure (< 1 month) History of inflammatory bowel disease Medical patient at bed rest Age 61-74 Arthroscopic surgery Major open surgery (> 45 min) Laparoscopic surgery (> 45 min) Malignancy Confined to bed (> 72 hours) Immobilizing plaster cast Central venous access Age >= 75 History of VTE Family history of VTE Factor V Leiden Prothrombin [id number] Lupus anticoagulant Anticardiolipin antibodies Elevated serum homocysteine Heparin-induced thrombocytopenia Other congenital or acquired thrombophilia Stroke (< 1 month) Elective arthroplasty Hip, pelvis, or leg fracture Acute spinal cord injury (< 1 month) Prophylaxis Regimen Total Risk Factor Score Risk Level Prophylaxis Regimen 0-1 Low Early ambulation 2 Moderate Order ONE of the following: *Sequential Compression Device (SCD) *Heparin 5000 units SQ BID 3-4 Higher Order ONE of the following medications: *Heparin 5000 units SQ TID *Enoxaparin/Lovenox 40 mg SQ daily (WT < 150 kg, CrCl > 30 mL/min) *Enoxaparin/Lovenox 30 mg SQ daily (WT < 150 kg, CrCl > 10-29 mL/min) *Enoxaparin/Lovenox 30 mg SQ BID (WT < 150 kg, CrCl > 30 mL/min) AND/OR *Sequential Compression Device (SCD) 5 or more Highest Order ONE of the following medications: *Heparin 5000 units SQ TID (Preferred with Epidurals) *Enoxaparin/Lovenox 40 mg SQ daily (WT < 150 kg, CrCl > 30 mL/min) *Enoxaparin/Lovenox 30 mg SQ daily (WT < 150 kg, CrCl > 10-29 mL/min) *Enoxaparin/Lovenox 30 mg SQ BID (WT < 150 kg, CrCl > 30 mL/min) AND *Sequential Compression Device (SCD) Assessment and Plan Assessment and Plan 82-year-old male with: Syncope Left-sided subdural hematoma History of atrial fibrillation on Xarelto Cardiomyopathy CKD Chronic foot wounds BPH Prediabetes Plan: Neuro: Continue neuro checks. Neurosurgery consulted and awaiting evaluation by Dr. Brown. Hold off on anticonvulsants at this time. Cardiovascular: Continue cardiac meds except Xarelto. Patient received Kcentra for Xarelto reversal in view of subdural hematoma. We'll consult Dr. He to follow up on ICD interrogation in view of syncopal episode and to evaluate for cardiac causes of syncope. Pulmonary: Bronchodilators as needed currently protecting airway well. GI/liver: By mouth diet as tolerated. Renal/: IV hydration, strict intake output, monitor and replete electrolytes Endocrine: Watch for hyperglycemia, SSI for glycemic control if needed Heme: Received 2500 units Kcentra at [facility]. Hold Xarelto. Follow coags Prophylaxis: SCDs. Further recommendations per neurosurgery Critical care will follow today and if no worsening and clinical status and plan for transfer to hospitalist service. Bayron Herndon MD Dec 27, 2017 07:19
[2017-12-27] MEDS: LOW DOSE INSULIN NOVOLOG SUPPLEMENTAL SCALE SQ SCH ×4 (08:00→21:00)
[2017-12-27] MEDS ORDERED: GLUCAGON 1 MG/ML VIAL OTHER PRN (08:00)
[2017-12-27] MEDS: SODIUM CHLORIDE 0.9% FLUSH 10 ML FLUSH IV FLUSH SCH ×2 (09:00→20:36)
[2017-12-27] MEDS ORDERED: PHYTONADIONE 10 MG/ML VIAL SQ ONE (09:00)
[2017-12-27] MEDS: TAMSULOSIN HCL 0.4 MG CAP PO SCH (09:42)
[2017-12-27] MEDS: FUROSEMIDE 40 MG TAB PO SCH ×2 (09:42→17:41)
[2017-12-27] MEDS: METOPROLOL TARTRATE 50 MG TAB PO SCH ×2 (09:42→20:34)
[2017-12-27] MEDS: HYDROCHLOROTHIAZIDE 12.5 MG CAP PO SCH (09:42)
[2017-12-27] MEDS: POTASSIUM CHLORIDE 20 MEQ CONTROLLED RELEASE TAB PO SCH ×2 (09:42→20:34)
[2017-12-27] MEDS: levETIRAcetam 500 MG TAB PO SCH ×2 (09:42→20:34)
[2017-12-27 11:18] LABS: INTERNATIONAL NORMALIZED RATIO 1.7 RATIO; PROTHROMBIN TIME - PATIENT 17.2 SEC (9.8-11.6)
--- NOTE | 2017-12-27 12:24 | MB ---
cc: GABY RODRIGUEZ ROHIT K. M.D. DATE OF CONSULTATION: 12/27/2017. REASON FOR CONSULTATION: Left subdural hemorrhage. HISTORY OF PRESENT ILLNESS: 82-year-old -[place] gentleman who was transferred from [facility] Emergency Room after he presented there with complaints of transient weakness in his hands, the right more than left. He is also complaining of some numbness in his hands bilaterally and his feet. He has had a nonhealing wound in his feet and is being seen by podiatry and was informed that he has likely neuropathy as well as peripheral vascular disease contributing to this. His speech is dysarthric but his relates it is because he has a dry mouth but otherwise he has been verbalizing well. At this point he denies any weakness in the upper or lower extremities and states that that has cleared up. He had a headache earlier but this has also resolved at this point and denies any nausea. Apparently a couple months ago he hit his head with no loss of consciousness and possibly may have hit his head again two weeks ago but the relates that he has, but the patient denies this. In any case, he is on Xarelto for chronic atrial fibrillation and also had an AICD device placed a couple months ago by Dr. He here at [facility]. CT scan of the head obtained reveals about 8-9 mm left frontal subacute subdural hemorrhage with a mild mass effect and about 2 to 3 mm [id number] midline shift. He was transferred to [facility] for further management and has been admitted to the intensive care unit with consults to cardiology and neurosurgery. PAST MEDICAL HISTORY: 1. Diabetes mellitus. 2. Kidney cancer. 3. Atrial fibrillation status post ablation / ICD device placement in 2017. 4. Cardiomyopathy. 5. Cryoablation for the renal cell carcinoma. 6. Sleep apnea. 7. Benign prostatic hypertrophy. 8. Hypertension. MEDICATIONS: 1. Xarelto 50 milligrams daily. 2. Flomax 0.4 milligrams daily. 3. Metoprolol 50 milligrams twice a day. 4. Lisinopril 40 milligrams twice a day. 5. Potassium chloride 20 milliequivalents twice a day. 6. Lasix 40 milligrams twice a day. ALLERGIES: NO KNOWN DRUG ALLERGIES. SOCIAL HISTORY: He is a former smoker. He drinks alcohol beverages daily. He is and his is here with him. FAMILY HISTORY: Negative for any coronary artery disease in the father or mother. REVIEW OF SYSTEMS: Denies any fevers or chills. Denies any impaired vision. He initially had some mild headache but that resolved. Denies any vertigo. Denies any nausea or vomiting. No shortness of breath. No rashes or an transient weakness in his right hand which has resolved. Complains of numbness in distal hands and feet. Complains of nonhealing wounds distally in his feet. He has chronic swelling in his legs. Denies any chest pain. He denies any abdominal pain. Otherwise review of systems is negative. LABORATORY FINDINGS: White blood cell count 4.7, hemoglobin 15.7, platelet count 159,000. PT 16.7, INR 1.5, PTT 32.2. Sodium 142, potassium 3.3, BUN 27, creatinine 1.9, glucose 89 this. EXAMINATION: VITAL SIGNS: Temperature 97.3, pulse is 80, respiratory rate 16, blood pressure 113/83, oxygen saturations 95% on two liters nasal cannula. GENERAL: He is an elderly -Bulgarian gentleman lying in bed in no acute distress. HEAD: No Singh or raccoon sign. Atraumatic. NECK: The neck is supple with no guarding or rigidity. Trachea is midline. CHEST: Clear to auscultation bilaterally. HEART: His rate appears to be regular at this point with a left chest subclavicular AICD device battery in place. No tenderness. ABDOMEN: The abdomen is soft and nontender. No hepatosplenomegaly noted. EXTREMITIES: He has some mild edema in the lower extremities with nonhealing wounds distally which are covered on his feet. He has some swelling in his hands also. SKIN: Nonhealing wounds in his feet with no rashes or any ecchymosis noted. NEUROLOGICAL EXAMINATION: He is awake, alert. Pupils are 3 mm reactive down to 2. Extraocular muscles are intact. Face is symmetric. Tongue is midline. He has dysarthric speech but also relates this to a dry mouth. He follows commands readily. He moves all four extremities with relatively good strength. Negative Babinski. Light touch sensation is intact bilaterally. IMPRESSION: 1. A small left frontal subacute subdural hemorrhage with mild mass effect. 2. On Xarelto anticoagulation for his atrial fibrillation with also an AICD device in place. 3. 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 4. Diabetes mellitus. 5. Cardiomyopathy. 6. Hypertension. PLAN: The patient has receive Kcentra for anticoagulation reversal and his anticoagulation will need to be withheld given the left small subdural hemorrhage. He has been loaded with Keppra, and this will be continued for early seizure prophylaxis. At this point, nonsurgical management will be undertaken and the follow up CT scan requested tomorrow morning to rule out any progression of the subdural hemorrhage. Sequential compression devices will be used for DVT prophylaxis and his activity status will increase as tolerated with occupational therapy and physical therapy involvement. Findings have been discussed with the patient and his and all of their questions have been answered. Also discussed with the nursing staff. MD TERRANCE Berg/SHERRY /8:40 AM /11:44 AM
[2017-12-27 19:06] LABS: PHOSPHORUS 5.2 MG/DL (2.5-4.9)
--- NOTE | 2017-12-27 19:11 | MB ---
cc: CHRISTIANO CHILEL DO DATE OF CONSULTATION: 12/27/2017. REASON FOR CONSULTATION: Subdural bleed on Xarelto. HISTORY OF PRESENT ILLNESS: Hayden Aly is a pleasant 82-year-old male who was transferred from [facility] to [facility] on December 27, 2017 due to a subdural hematoma. The patient states that he was at home having difficulty with weakness and inability to stand up. He was also having difficulty holding a flashlight due to weakness. He states that his right hand is more weak than his left hand. He has also had some numbness in his feet bilaterally but has known neuropathy. Apparently the patient hit his head a couple of months ago but had no loss of conscious at the time. The patient is a overall difficult to historian and most of the record is taken from the chart. It does not appear that the patient had an episode of syncope as a cause for his subdural hemorrhage. PAST MEDICAL HISTORY: 1. Atrial flutter. 2. Congestive heart failure. 3. Dementia 4. Hyperlipidemia. 5. Hypertension 6. Nonischemic cardiomyopathy. 7. Paroxysmal atrial fibrillation 8. Post-traumatic stress disorder. 9. Renal cancer 10. Benign prostate hypertrophy. 11. Sleep apnea. PAST SURGICAL HISTORY: 1. Electrophysiology study with atrial flutter ablation (October 28, 2017). 2. Placement of a [employer] dual-chamber defibrillator (model number [id number], serial number [id number], October 29, 2017). ALLERGIES: NO KNOWN DRUG ALLERGIES. MEDICATIONS: 1. Flomax 0.4 milligrams daily. 2. Xarelto 15 milligrams daily. 3. Metoprolol tartrate 50 milligrams twice a day. 4. Lisinopril 40 milligrams twice a day. 5. Aspirin 325 milligrams daily. 6. Tramadol 50 milligrams every 4 hours as needed for pain. 7. Potassium 20 milliequivalents every 12 hours 8. Bumetanide 0.5 milligrams twice a day. 9. Lasix 40 milligrams twice a day. 10. Hydrochlorothiazide 12.5 milligrams daily. FAMILY HISTORY: Denies premature coronary artery disease or sudden cardiac within the family. SOCIAL HISTORY: The patient denies tobacco, alcohol or drug abuse. He did have a history of smoking. REVIEW OF SYSTEMS Fourteen systems were reviewed including osteopathic with pertinent positives and negatives as above; otherwise negative. PHYSICAL EXAMINATION: VITAL SIGNS: Temperature 97.6, heart rate 72, blood pressure 143/82, respirations 17, pulse ox 100% on 2 liters. GENERAL: In general, the patient appears relatively well and in no acute distress, alert awake and oriented x3. HEAD, EYES, EARS, NOSE, THROAT: Extraocular muscles intact. Mucous membranes moist. NECK: The neck is supple. No JVD at 45 degrees. No carotid bruits heard bilaterally. Carotid upstroke is brisk in nature. HEART: Heart is irregularly irregular. Positive first and second heart sounds with no murmurs, gallops or rubs. LUNGS: Clear to auscultation bilaterally. No wheezes, rales or rhonchi. ABDOMEN: The abdomen is soft, nontender and nondistended. No organomegaly noted. EXTREMITIES: Trace edema bilaterally. NEUROLOGICALLY: The patient has mild dysarthria but apparently this is baseline for him, otherwise he does not appear to have focal deficits. SKIN: Warm, dry and intact. OSTEOPATHIC: Osteopathically, no kyphoscoliosis, lordosis or paraspinal tender points. LAB WORK: Hemoglobin 15.7, hematocrit is 50.7, platelets 159,000. INR 1.7. Potassium 3.3, BUN 27, creatinine 1.9. IMPRESSIONS: 1. Left-sided subdural hematoma. 2. History of atrial fibrillation on Xarelto 3. Cardiomyopathy status post recent placement of a dual-chamber ICD. 4. Chronic kidney disease. 5. Chronic foot wound. 6. Benign prostate hypertrophy. 7. Pre-diabetes. RECOMMENDATIONS: 1. As Mr. Aly has a subdural hematoma, Xarelto will be held. He has since been given Kcentra in light of his subdural hematoma. 2. There is a question of syncope although no one relates this in the history. Interrogation was done and reviewed showing episodes of atrial fibrillation with mode switch, which is appropriate. He has had occasional short bursts of nonsustained ventricular tachycardia but the last time around two weeks ago. During these episodes, they last around 3 seconds. 3. Neurosurgery has discussed with the patient and for now will plan on a nonsurgical management as the patient has gotten somewhat better. 4. Will continue him on his beta peterson therapy. 5. Further recommendations will be made based on the hospital course. Thank you for allowing me to see Hayden Aly. If there are any questions, please do not hesitate to call. Christiano Chilel DO VGP/JCC /4:01 PM /6:47 PM
[2017-12-27 19:18] LABS: CALCIUM 8.7 MG/DL (8.5-10.1); CREATININE 2.24 MG/DL (0.60-1.30); MAGNESIUM 2.1 MG/DL (1.5-2.5)
[2017-12-27] MEDS: DEXTROSE 50% IN WATER 50 ML VIAL(D50) IV PUSH PRN (23:30)
[2017-12-28] VITALS (14 sets, daily range): BP systolic 108–147; BP diastolic 71–81; PULSE 72–83; RESP 12–28; TEMP 97.1–98.3; O2SAT 97–100
[2017-12-28] MEDS: CHLORHEXIDINE GLUCONATE 2 % 1 PACK (2 CLOTHS) TOP SCH (03:04)
[2017-12-28] MEDS: DEXT 5%-NACL 0.9% 1000 ML INJ 1,000 ML IV SCH ×2 (04:15→14:02)
[2017-12-28] MEDS: DEXTROSE 50% IN WATER 50 ML VIAL(D50) IV PUSH PRN (04:20)
[2017-12-28 05:09] LABS: INTERNATIONAL NORMALIZED RATIO 1.5 RATIO
[2017-12-28 05:22] LABS: AUTOMATED NEUTROPHIL # 1.7 TH/MM3 (1.8-7.7); BASOPHIL % 0.7 % (0.0-2.0); EOSINOPHIL # 0.1 TH/MM3 (0-0.4); EOSINOPHIL % 2.7 % (0.0-4.0); HEMATOCRIT 50.2 % (39.0-51.0); HEMOGLOBIN 15.7 GM/DL (13.0-17.0); LYMPH % 31.4 % (9.0-44.0); LYMPHOCYTE # 1.1 TH/MM3 (1.0-4.8); MEAN CELL VOLUME 77.5 FL (80.0-100.0); MEAN CORPUSCULAR HEMOGLOBIN 24.3 PG (27.0-34.0); MEAN CORPUSCULAR HGB CONC 31.3 % (32.0-36.0); MEAN PLATELET VOLUME 11.7 FL (7.0-11.0); MONO % 17.1 % (0.0-8.0); MONOCYTE # 0.6 TH/MM3 (0-0.9); NEUT % 48.1 % (16.0-70.0); PLATELET COUNT 149 TH/MM3 (150-450); RED BLOOD COUNT 6.48 MIL/MM3 (4.50-5.90); RED CELL DISTRIBUTION WIDTH 17.7 % (11.6-17.2); WHITE BLOOD COUNT 3.4 TH/MM3 (4.0-11.0)
[2017-12-28 05:24] LABS: ALBUMIN 2.8 GM/DL (3.4-5.0); ALT (GPT) 23 U/L (12-78); AST (GOT) 34 U/L (15-37); BICARBONATE 34.2 MEQ/L (21.0-32.0); BLOOD UREA NITROGEN 46 MG/DL (7-18); CALCIUM 8.2 MG/DL (8.5-10.1); CHLORIDE 102 MEQ/L (98-107); CREATININE 2.01 MG/DL (0.60-1.30); GLOMERULAR FILTRATION RATE 39 ML/MIN (>89); SODIUM (NA) 143 MEQ/L (136-145)
[2017-12-28 05:29] LABS: ALKALINE PHOSPHATASE 122 U/L (45-117); TOTAL BILIRUBIN ADULT 1.1 MG/DL (0.2-1.0); TOTAL PROTEIN 6.3 GM/DL (6.4-8.2)
[2017-12-28 05:30] LABS: GLUCOSE,RANDOM 37 MG/DL (74-106)
--- NOTE | 2017-12-28 06:02 | RADRPT ---
EXAM DATE/TIME: 12/28/2017 05:22 [place] COMPARISON: No previous studies available for comparison. [facility] INDICATIONS : Follow up subdural hematoma. RADIATION DOSE: 41.69 CTDIvol (mGy) MEDICAL HISTORY : Cardiovascular disease. Hypertension. Renal cancer SURGICAL HISTORY : Pacemaker. ENCOUNTER: Initial ACUITY: 1 day PAIN SCALE: 0/10 LOCATION: cranial TECHNIQUE: Multiple contiguous axial images were obtained of the head. Using automated exposure control and adj ustment of the mA and/or kV according to patient size, radiation dose was kept as low as reasonably a chievable to obtain optimal diagnostic quality images. DICOM format image data is available electro nically for review and comparison. FINDINGS: CEREBRUM: There is a left extra-axial hematoma seen over the left frontal and parietal lobes. At the left front al lobe, hemorrhage as the elliptical shape and measures up to 0.8 cm in thickness. The left frontal hemorrhage likely is still a subdural hemorrhage although a mild epidural hemorrhage could have a sim ilar appearance. The posterior margin of this region does extend to the coronal suture region. The he morrhage over the left parietal region is a subdural hemorrhage measuring up to 0.4 cm in thickness. There is 4 mm of left to right midline shift seen at the frontal horns the lateral ventricle. The bas al cisterns are open. No evidence of midline shift, mass lesion, or acute infarction. POSTERIOR FOSSA: The cerebellum and brainstem are intact. The 4th ventricle is midline. The cerebellopontine angle i s unremarkable. EXTRACRANIAL: The visualized portion of the orbits is intact. SKULL: The calvaria is intact. No evidence of skull fracture. CONCLUSION: Extra axial hemorrhage over the left frontal and parietal lobes likely related to subdural hemorrhage . A parietal component is definite a subdural hemorrhage. The left frontal component has a more ellip tical shape raising the possibility of a possible mild epidural hemorrhage versus a subdural hemorrha ge in this region. No fracture is seen. There is 4 mm of left to right midline shift. Osman Arreguin MD on December 28, 2017 at 5:53 Board Certified Radiologist. This report was verified electronically.
--- NOTE | 2017-12-28 07:32 | HHI.NSPN ---
(Shqa Saez) History Chief Complaint: No complaints. Some confusion. Left SDH. (Shaq Saez) Interval History 82-year-old -Lao gentleman who was transferred from [facility] Emergency Room after he presented there with complaints of transient weakness in his hands, the right more than left. He is also complaining of some numbness in his hands bilaterally and his feet. He has had a nonhealing wound in his feet and is being seen by podiatry and was informed that he has likely neuropathy as well as peripheral vascular disease contributing to this. His speech is dysarthric but his relates it is because he has a dry mouth but otherwise he has been verbalizing well. At this point he denies any weakness in the upper or lower extremities and states that that has cleared up. He had a headache earlier but this has also resolved at this point and denies any nausea. Apparently a couple months ago he hit his head with no loss of consciousness and possibly may have hit his head again two weeks ago but the relates that he has, but the patient denies this. In any case, he is on Xarelto for chronic atrial fibrillation and also had an AICD device placed a couple months ago by Dr. Neri fernández at [facility]. CT scan of the head obtained reveals about 8-9 mm left frontal subacute subdural hemorrhage with a mild mass effect and about 2 to 3 mm [id number] midline shift. He was transferred to [facility] for further management and has been admitted to the intensive care unit with consults to cardiology and neurosurgery. 12/28/17: Agent denies any headaches, nausea, vomiting, weakness, or paresthesias. He states he is cold. (Shaq Saez) Review of Systems General: Negative for: fever, chills, insomnia Respiratory: Negative for: shortness of breath, cough, sputum Cardiovascular: Negative for: chest pain Gastrointestinal: Negative for: nausea, vomitting, diarrhea, constipation ( Shaq Saez) Exam Results Vital Signs Date Time Temp Pulse Resp B/P (MAP) Pulse Ox O2 Delivery O2 Flow Rate FiO2 12/28/17 06:00 80 12/28/17 04:00 98.3 22 147/71 (96) 98 12/27/17 19:00 Nasal Cannula 2.00 Intake and Output 12/28/17 12/28/17 12/29/17 08:00 16:00 00:00 Intake Total 350 ml Output Total 1752 ml Balance -1402 ml (Shaq Saez) Physical Examination General: Pt awakens to voice and appears comfortably resting in his bed. Eyes: Pupils 3mm bilaterally reactive bilaterally. No scleral icterus. Resp: CTA bilaterally Heart: NSR no murmurs Abd: Soft positive bs Skin: No cyanosis or erythema. He has nonhealing wounds on his feet. Muscle: Moves all 4 extremities with 5/5 strength in extremities. Neuro: Pt awakens easily to voice. Pupils 3mm bilaterally reactive bilaterally. Follows commands well. Speech clear and appropriate. Mild confusion. (Shaq Saez) Lab, Micro, Other Results Last Impressions Head CT 12/28/17 0600 Signed Impressions: Service Date/Time: Thursday, December 28, 2017 05:22 - CONCLUSION: Extra axial hemorrhage over the left frontal and parietal lobes likely related to subdural hemorrhage. A parietal component is definite a subdural hemorrhage. The left frontal component has a more elliptical shape raising the possibility of a possible mild epidural hemorrhage versus a subdural hemorrhage in this region. No fracture is seen. There is 4 mm of left to right midline shift. Osman Arreguin MD Laboratory Tests Test 12/27/17 10:18 12/27/17 18:19 12/27/17 22:31 12/28/17 04:00 Prothrombin Time 17.2 SEC 15.0 SEC Prothromb Time International Ratio 1.7 RATIO 1.5 RATIO Activated Partial Thromboplast Time 40.8 SEC Blood Urea Nitrogen 49 MG/DL 46 MG/DL Creatinine 2.24 MG/DL 2.01 MG/DL Random Glucose 50 MG/DL 52 MG/DL 37 MG/DL Calcium Level 8.7 MG/DL 8.2 MG/DL Phosphorus Level 5.2 MG/DL Magnesium Level 2.1 MG/DL Sodium Level 140 MEQ/L 143 MEQ/L Potassium Level 4.6 MEQ/L 4.1 MEQ/L Chloride Level 103 MEQ/L 102 MEQ/L Carbon Dioxide Level 26.0 MEQ/L 34.2 MEQ/L Anion Gap 11 MEQ/L 7 MEQ/L Estimat Glomerular Filtration Rate 34 ML/MIN 39 ML/MIN White Blood Count 3.4 TH/MM3 Red Blood Count 6.48 MIL/MM3 Hemoglobin 15.7 GM/DL Hematocrit 50.2 % Mean Corpuscular Volume 77.5 FL Mean Corpuscular Hemoglobin 24.3 PG Mean Corpuscular Hemoglobin Concent 31.3 % Red Cell Distribution Width 17.7 % Platelet Count 149 TH/MM3 Mean Platelet Volume 11.7 FL Neutrophils (%) (Auto) 48.1 % Lymphocytes (%) (Auto) 31.4 % Monocytes (%) (Auto) 17.1 % Eosinophils (%) (Auto) 2.7 % Basophils (%) (Auto) 0.7 % Neutrophils # (Auto) 1.7 TH/MM3 Lymphocytes # (Auto) 1.1 TH/MM3 Monocytes # (Auto) 0.6 TH/MM3 Eosinophils # (Auto) 0.1 TH/MM3 Basophils # (Auto) 0.0 TH/MM3 CBC Comment AUTO DIFF Differential Comment AUTO DIFF CONFIRMED Platelet Estimate LOW Platelet Morphology Comment ENLARGED Total Protein 6.3 GM/DL Albumin 2.8 GM/DL Alkaline Phosphatase 122 U/L Aspartate Amino Transf (AST/SGOT) 34 U/L Alanine Aminotransferase (ALT/SGPT) 23 U/L Total Bilirubin 1.1 MG/DL (Shqa Saez) Medical Decision Making Impression and Plan A: 1. A small left frontal subacute subdural hemorrhage with mild mass effect. 2. On Xarelto anticoagulation for his atrial fibrillation with also an AICD device in place. 3. 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 4. Diabetes mellitus. 5. Cardiomyopathy. 6. Hypertension. PLAN: Continue with Neuro checks Continue with rehab efforts. Continue with medical management. (Shaq Saez) Attending Statement The exam, history, and the medical decision-making described in the above note were completed with the assistance of the mid-level provider. I reviewed and agree with the findings presented. I attest that I had a [id number] encounter with the patient on the same day, and personally performed and documented my assessment and findings in the medical record. Stable neurologic examination. Continue with the withholding of anticoagulation has PT/INR has improved with vitamin K yesterday. Rehabilitation with PT and OT. (Robinson Brown MD) Shaq Saez Dec 28, 2017 07:32 Robinson Brown MD Dec 28, 2017 12:12
[2017-12-28] MEDS: SODIUM CHLORIDE 0.9% FLUSH 10 ML FLUSH IV FLUSH SCH ×2 (09:00→21:09)
[2017-12-28] MEDS ORDERED: PNEUMOCOCCAL POLYVALENT INJ 25 MCG/0.5 ML SYR IM ONE (09:00)
[2017-12-28] MEDS ORDERED: INFLUENZA VIRUS VACCINE (QUADRIVALENT) 0.5 ML SYR IM ONE (09:00)
[2017-12-28] MEDS: FUROSEMIDE 40 MG TAB PO SCH ×2 (09:46→17:22)
[2017-12-28] MEDS: levETIRAcetam 500 MG TAB PO SCH ×2 (09:46→21:09)
[2017-12-28] MEDS: TAMSULOSIN HCL 0.4 MG CAP PO SCH (09:46)
[2017-12-28] MEDS: METOPROLOL TARTRATE 50 MG TAB PO SCH ×2 (09:47→21:09)
[2017-12-28] MEDS: HYDROCHLOROTHIAZIDE 12.5 MG CAP PO SCH (09:47)
[2017-12-28] MEDS: POTASSIUM CHLORIDE 20 MEQ CONTROLLED RELEASE TAB PO SCH ×2 (09:47→21:09)
--- NOTE | 2017-12-28 12:22 | HHI.CCPN ---
Subjective Remarks/Hospital Course 12/27: 82 male transferred from [facility] due to a subdural hematoma on the left of mixed attenuation up to 10 mm in maximal width. He reports that at the point of wound care of his feet he developed some weakness in the hands when he was holding a flashlight. No loss of consciousness reported. The patient takes Xarelto for atrial fibrillation. Patient underwent ICD/pacemaker placement by Dr. He in late 2016. Onset sudden. He has had no weakness or neurologic complaints since. He denies trauma that he can remember. Patient was transferred from [facility] after being accepted by Dr. Brown from neurosurgery as his head CT showed left sided subdural hematoma of mixed attenuation (10 mm). He is being admitted to the critical care medicine service. I evaluated the patient following his arrival to the ICU. At that time he was resting comfortably and denied any headache, chest pain, palpitations, dizziness, nausea or any visual disturbance. He and his said that he was back in his normal state without any weakness. 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 He is prediabetic. Of note patient received Keppra 1 g IV, Kcentra 2500 units IV, aspirin 324 mg at [facility]. 12/28: Patient did well over the night however he was found to be hypoglycemic though asymptomatic. He was started on D5NS with improvement in his blood glucose. He feels fine, he thinks his weakness is better. Afebrile. Objective Vital Signs Date Time Temp Pulse Resp B/P (MAP) Pulse Ox O2 Delivery O2 Flow Rate FiO2 12/28/17 10:00 81 12/28/17 08:00 97.7 18 129/79 (96) 100 12/28/17 07:00 Nasal Cannula 2.00 Intake and Output 12/28/17 12/28/17 12/29/17 08:00 16:00 00:00 Intake Total 1350 ml Output Total 1752 ml Balance -402 ml Result Diagram: 12/28/17 0400 12/28/[address] from outside hospital with left-sided subdural hematoma-10mm. Mixed attenuation without any mass effect Objective Remarks General - elderly gentleman, awake, in no distress HEENT - pupils equal, reactive, sclerae anicteric, neck supple, no nuchal rigidity, neck veins not distended, no carotid bruit CV - regular S1, S2, no murmurs Chest - clear b/l, good air entry, no wheezes Abdomen - soft, non-tender, non-distended, BS present, no hepatomegaly, no splenomegaly Skin - + rash over b/l LE extremities Extremities - warm and well perfused, 3+ pitting edema, decreased peripheral pulses, + wound on right second toe, dry, no discharge, TTP, warm with some surrounding erythema Neuro - AAO X 3, motor 5/5 over all extremities, sensation is intact, EOMI, smile symmetric, tongue midline, shrugs shoulders A/P Assessment and Plan 1. Left-sided subdural hematoma - patient doing well 2. Coagulopathy - received Kcentra 3. Recurrent hypoglycemia - unclear why, better 4. H/o Afib 5. Chronic right foot ulcer with concern for OM 6. Cardiomyopathy 7. CKD 1. Continue neurochecks 2. D5 NS and serial blood glucose 3. Check ESR and CRP and if elevated consult ID tomorrow 4. On diet 5. GI prophylaxis 6. DVT prophylaxis with SCD's 7. If hypoglycemia improves will transfer patient to hospitalist service in [facility],Bernard Bauer MD Dec 28, 2017 12:22
--- NOTE | 2017-12-28 12:24 | PD.CARD.PN ---
Subjective Subjective Remarks No events overnight CT this morning showing decreased midline shift Objective Medications Current Medications Medications (Trade) Dose Ordered Sig/Daniel Route Start Time Stop Time Status Last Admin (NS Flush) 2 ml UNSCH PRN IV FLUSH 12/27/17 04:15 (NS Flush) 2 ml BID IV FLUSH 12/27/17 09:00 12/28/17 09:00 (Tylenol) 650 mg Q6H PRN PO 12/27/17 04:15 Miscellaneous Information 1 Q361D XX 12/27/17 04:15 12/27/17 04:15 (Chlorhexidine 2% Cloth) 3 pack Taper DAILY@04 TOP 12/28/17 04:00 12/24/18 03:59 (Chlorhexidine 2% Cloth) 3 pack UNSCH PRN TOP 12/27/17 04:15 (Milk Of Magnesia Liq) 30 ml Q12H PRN PO 12/27/17 04:15 (Senokot) 17.2 mg Q12H PRN PO 12/27/17 04:15 (Dulcolax Supp) 10 mg DAILY PRN RECTAL 12/27/17 04:15 (Lactulose Liq) 30 ml DAILY PRN PO 12/27/17 04:15 (Microzide) 12.5 mg DAILY PO 12/27/17 09:00 12/28/17 09:47 (Lopressor) 50 mg BID PO 12/27/17 09:00 12/28/17 09:47 (KCl) 20 meq Q12HR PO 12/27/17 09:00 12/28/17 09:47 (Flomax) 0.4 mg DAILY PO 12/27/17 09:00 12/28/17 09:46 (Ultram) 50 mg Q4H PRN PO 12/27/17 07:30 (Lasix) 40 mg BID@,18 PO 12/27/17 09:00 12/28/17 09:46 (D50w (Vial) Inj) 50 ml UNSCH PRN IV PUSH 12/27/17 08:00 12/28/17 04:20 (Glucagon Inj) 1 mg UNSCH PRN OTHER 12/27/17 08:00 (Keppra) 500 mg Q12HR PO 12/27/17 09:00 12/28/17 09:46 Dextrose/Sodium Chloride 1,000 ml @ 100 mls/hr Q10H IV 12/28/17 04:15 12/28/17 04:15 Vital Signs / I&O Vital Signs Date Time Temp Pulse Resp B/P (MAP) Pulse Ox O2 Delivery O2 Flow Rate FiO2 12/28/17 10:00 81 12/28/17 08:00 80 12/28/17 08:00 97.7 78 18 129/79 (96) 100 12/28/17 07:00 92 Nasal Cannula 2.00 12/28/17 06:00 80 12/28/17 04:00 98.3 72 22 147/71 (96) 98 12/28/17 04:00 72 12/28/17 02:00 80 12/28/17 02:00 80 12/28/17 00:00 78 12/28/17 00:00 97.1 81 22 116/81 (93) 97 12/27/17 22:00 87 12/27/17 20:00 97.0 81 24 120/92 (101) 94 12/27/17 20:00 81 12/27/17 19:00 100 Nasal Cannula 2.00 12/27/17 18:00 80 12/27/17 16:00 97.2 80 13 120/92 (101) 98 12/27/17 16:00 80 12/27/17 14:00 78 I/O 12/27/17 12/27/17 12/27/17 12/28/17 12/28/17 12/28/17 07:00 15:00 23:00 07:00 15:00 23:00 Intake Total 1641 ml 1350 ml Output Total 1800 ml 1752 ml Balance -159 ml -402 ml Intake Oral 720 ml 350 ml IV Total 921 ml 1000 ml Output Urine Total 1800 ml 1750 ml Drainage Total 2 ml # Voids 2 # Bowel Movements 0 0 Physical Exam GENERAL: NAD, AAOx3 SKIN: Warm and dry. HEAD: Atraumatic. Normocephalic. EYES: Pupils equal and round. No scleral icterus. No injection or drainage. ENT: No nasal bleeding or discharge. Mucous membranes pink and moist. NECK: Trachea midline. No JVD. CARDIOVASCULAR: Irregularly irregular RESPIRATORY: No accessory muscle use. Clear to auscultation. Breath sounds equal bilaterally. GASTROINTESTINAL: Abdomen soft, non-tender, nondistended. Hepatic and splenic margins not palpable. MUSCULOSKELETAL: Extremities without clubbing, cyanosis, or edema. No obvious deformities. NEUROLOGICAL: No focal deficits noted Laboratory Laboratory Tests Test 12/27/17 18:19 12/27/17 22:31 12/28/17 04:00 Blood Urea Nitrogen 49 MG/DL 46 MG/DL Creatinine 2.24 MG/DL 2.01 MG/DL Random Glucose 50 MG/DL 52 MG/DL 37 MG/DL Calcium Level 8.7 MG/DL 8.2 MG/DL Phosphorus Level 5.2 MG/DL Magnesium Level 2.1 MG/DL Sodium Level 140 MEQ/L 143 MEQ/L Potassium Level 4.6 MEQ/L 4.1 MEQ/L Chloride Level 103 MEQ/L 102 MEQ/L Carbon Dioxide Level 26.0 MEQ/L 34.2 MEQ/L Anion Gap 11 MEQ/L 7 MEQ/L Estimat Glomerular Filtration Rate 34 ML/MIN 39 ML/MIN White Blood Count 3.4 TH/MM3 Red Blood Count 6.48 MIL/MM3 Hemoglobin 15.7 GM/DL Hematocrit 50.2 % Mean Corpuscular Volume 77.5 FL Mean Corpuscular Hemoglobin 24.3 PG Mean Corpuscular Hemoglobin Concent 31.3 % Red Cell Distribution Width 17.7 % Platelet Count 149 TH/MM3 Mean Platelet Volume 11.7 FL Neutrophils (%) (Auto) 48.1 % Lymphocytes (%) (Auto) 31.4 % Monocytes (%) (Auto) 17.1 % Eosinophils (%) (Auto) 2.7 % Basophils (%) (Auto) 0.7 % Neutrophils # (Auto) 1.7 TH/MM3 Lymphocytes # (Auto) 1.1 TH/MM3 Monocytes # (Auto) 0.6 TH/MM3 Eosinophils # (Auto) 0.1 TH/MM3 Basophils # (Auto) 0.0 TH/MM3 CBC Comment AUTO DIFF Differential Comment AUTO DIFF CONFIRMED Platelet Estimate LOW Platelet Morphology Comment ENLARGED Prothrombin Time 15.0 SEC Prothromb Time International Ratio 1.5 RATIO Total Protein 6.3 GM/DL Albumin 2.8 GM/DL Alkaline Phosphatase 122 U/L Aspartate Amino Transf (AST/SGOT) 34 U/L Alanine Aminotransferase (ALT/SGPT) 23 U/L Total Bilirubin 1.1 MG/DL Imaging Last [address] 12/28/17 0600 Signed Impressions: Service Date/Time: Thursday, December 28, 2017 05:22 - CONCLUSION: Extra axial hemorrhage over the left frontal and parietal lobes likely related to subdural hemorrhage. A parietal component is definite a subdural hemorrhage. The left frontal component has a more elliptical shape raising the possibility of a possible mild epidural hemorrhage versus a subdural hemorrhage in this region. No fracture is seen. There is 4 mm of left to right midline shift. Osman Arreguin MD Assessment and Plan Problem List: (1) Atrial fibrillation ICD Codes: I48.91 - Unspecified atrial fibrillation (2) Subdural hemorrhage ICD Codes: I62.00 - Nontraumatic subdural hemorrhage, unspecified Status: Acute (3) Cardiomyopathy ICD Codes: I42.9 - Cardiomyopathy, unspecified (4) S/P ICD (internal cardiac defibrillator) procedure ICD Codes: Z95.810 - Presence of automatic (implantable) cardiac defibrillator Assessment and Plan 1) Baseline Afib Rhythm is mostly paced (not PVCs) with occasional [place] beats 2) Interrogation showing Afib Rare NSVT ~3seconds with last episode weeks ago 3) ? Syncope Patient denies 4) Subdural hemorrhage Secondary to Xarelto Xarelto stopped Christiano Robledo DO Dec 28, 2017 12:24
[2017-12-28] MEDS: MAGNESIUM HYDROXIDE SUSP 30 ML CUP PO PRN (15:05)
[2017-12-28] MEDS: traMADol HCL 50 MG TAB PO PRN (15:07)
[2017-12-28] MEDS: COLLAGENASE OINT 30 GM TUBE TOPICAL SCH (21:11)
[2017-12-29] VITALS (11 sets, daily range): BP systolic 108–141; BP diastolic 64–95; PULSE 60–96; RESP 16–22; TEMP 96.9–97.9; O2SAT 96–100
[2017-12-29] MEDS: DEXT 5%-NACL 0.9% 1000 ML INJ 1,000 ML IV SCH ×2 (00:04→10:15)
[2017-12-29] MEDS: traMADol HCL 50 MG TAB PO PRN ×2 (00:48→05:54)
[2017-12-29] MEDS: CHLORHEXIDINE GLUCONATE 2 % 1 PACK (2 CLOTHS) TOP SCH ×2 (03:57→23:23)
--- NOTE | 2017-12-29 08:48 | HHI.NSPN ---
(Shaq Saez) History Chief Complaint: No complaints. Some confusion. Left SDH. (Shaq Saez) Interval History 82-year-old -[place] gentleman who was transferred from [facility] after he presented there with complaints of transient weakness in his hands, the right more than left. He is also complaining of some numbness in his hands bilaterally and his feet. He has had a nonhealing wound in his feet and is being seen by podiatry and was informed that he has likely neuropathy as well as peripheral vascular disease contributing to this. His speech is dysarthric but his relates it is because he has a dry mouth but otherwise he has been verbalizing well. At this point he denies any weakness in the upper or lower extremities and states that that has cleared up. He had a headache earlier but this has also resolved at this point and denies any nausea. Apparently a couple months ago he hit his head with no loss of consciousness and possibly may have hit his head again two weeks ago but the relates that he has, but the patient denies this. In any case, he is on Xarelto for chronic atrial fibrillation and also had an AICD device placed a couple months ago by Dr. Neri fernández at [facility]. CT scan of the head obtained reveals about 8-9 mm left frontal subacute subdural hemorrhage with a mild mass effect and about 2 to 3 mm [id number] midline shift. He was transferred to [facility] for further management and has been admitted to the intensive care unit with consults to cardiology and neurosurgery. 12/28/17: Agent denies any headaches, nausea, vomiting, weakness, or paresthesias. He states he is cold. 12/29/17: Pt awakens to voice but fatigued this morning. Denies headache, nausea, vomiting, or paresthesias in face or UEs. Complains of discomfort in his feet. (Shaq Saez) Review of Systems General: Negative for: fever, chills, insomnia Respiratory: Negative for: shortness of breath, cough, sputum Cardiovascular: Negative for: chest pain Gastrointestinal: Negative for: nausea, vomitting, diarrhea, constipation ( Shaq Saez) Exam Results Vital Signs Date Time Temp Pulse Resp B/P (MAP) Pulse Ox O2 Delivery O2 Flow Rate FiO2 12/29/17 06:00 81 12/29/17 04:00 97.9 17 113/76 (88) 100 12/28/17 21:00 Nasal Cannula 3.00 12/28/17 19:00 35 Intake and Output 12/29/17 12/29/17 12/30/17 08:00 16:00 00:00 Output Total 850 ml Balance -850 ml (Shaq Saez) Physical Examination General: Pt awakens to voice and appears comfortably resting in his bed. Eyes: Pupils 3mm bilaterally reactive bilaterally. No scleral icterus. Resp: CTA bilaterally Heart: NSR no murmurs Abd: Soft positive bs Skin: No cyanosis or erythema. He has nonhealing wounds on his feet, managed by podiatry outpatient. Muscle: Moves all 4 extremities with 5/5 strength in extremities. Neuro: Pt awakens easily to voice, but fatigued this morning. Pupils 3mm bilaterally reactive bilaterally. Follows commands well. Speech clear and appropriate. Mild confusion. (Shaq Saez) Lab, Micro, Other Results Last Impressions Head CT 12/28/17 0600 Signed Impressions: Service Date/Time: Thursday, December 28, 2017 05:22 - CONCLUSION: Extra axial hemorrhage over the left frontal and parietal lobes likely related to subdural hemorrhage. A parietal component is definite a subdural hemorrhage. The left frontal component has a more elliptical shape raising the possibility of a possible mild epidural hemorrhage versus a subdural hemorrhage in this region. No fracture is seen. There is 4 mm of left to right midline shift. Osman Arreguin MD Laboratory Tests Test 12/28/17 18:50 12/29/17 03:56 Nasal Screen MRSA (PCR) MRSA NOT DETECTED Erythrocyte Sedimentation Rate 1 mm/hr C-Reactive Protein 1.91 MG/DL (Shaq Saez) Medical Decision Making Impression and Plan A: 1. A small left frontal subacute subdural hemorrhage with mild mass effect. 2. On Xarelto anticoagulation for his atrial fibrillation with also an AICD device in place. 3. 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 4. Diabetes mellitus. 5. Cardiomyopathy. 6. Hypertension. PLAN: Continue with Neuro checks Continue with rehab efforts. Continue with medical management. Discussed with pts at bedside. (Shaq Saez) Attending Statement The exam, history, and the medical decision-making described in the above note were completed with the assistance of the mid-level provider. I reviewed and agree with the findings presented. I attest that I had a [id number] encounter with the patient on the same day, and personally performed and documented my assessment and findings in the medical record. Stable neurologic examination. Okay for transfer to the floor. We'll need to hold anticoagulation and will get follow-up CT scan of the head in 2 weeks. Discussed with and floor sanding machine operator Dr. Herndon. (Robinson Brown MD) Shaq Saez Dec 29, 2017 08:48 Robinson Brown MD Dec 29, 2017 11:32
[2017-12-29] MEDS: SODIUM CHLORIDE 0.9% FLUSH 10 ML FLUSH IV FLUSH SCH ×2 (09:00→17:43)
[2017-12-29] MEDS: levETIRAcetam 500 MG TAB PO SCH ×2 (09:04→23:23)
[2017-12-29] MEDS: POTASSIUM CHLORIDE 20 MEQ CONTROLLED RELEASE TAB PO SCH ×2 (09:04→23:23)
[2017-12-29] MEDS: TAMSULOSIN HCL 0.4 MG CAP PO SCH (09:04)
[2017-12-29] MEDS: METOPROLOL TARTRATE 50 MG TAB PO SCH ×2 (09:05→23:22)
[2017-12-29] MEDS: COLLAGENASE OINT 30 GM TUBE TOPICAL SCH ×2 (09:05→23:23)
[2017-12-29] MEDS: FUROSEMIDE 40 MG TAB PO SCH ×2 (09:05→17:43)
[2017-12-29] MEDS: HYDROCHLOROTHIAZIDE 12.5 MG CAP PO SCH (09:05)
--- NOTE | 2017-12-29 12:22 | PD.CARD.PN ---
Subjective Subjective Remarks No events overnight Lethargic, up to the chair Objective Medications Current Medications Medications (Trade) Dose Ordered Sig/Daniel Route Start Time Stop Time Status Last Admin (NS Flush) 2 ml UNSCH PRN IV FLUSH 12/27/17 04:15 (NS Flush) 2 ml BID IV FLUSH 12/27/17 09:00 12/28/17 21:09 (Tylenol) 650 mg Q6H PRN PO 12/27/17 04:15 Miscellaneous Information 1 Q361D XX 12/27/17 04:15 12/27/17 04:15 (Chlorhexidine 2% Cloth) 3 pack Taper DAILY@04 TOP 12/28/17 04:00 12/24/18 03:59 (Chlorhexidine 2% Cloth) 3 pack UNSCH PRN TOP 12/27/17 04:15 (Milk Of Magnesia Liq) 30 ml Q12H PRN PO 12/27/17 04:15 12/28/17 15:05 (Senokot) 17.2 mg Q12H PRN PO 12/27/17 04:15 (Dulcolax Supp) 10 mg DAILY PRN RECTAL 12/27/17 04:15 (Lactulose Liq) 30 ml DAILY PRN PO 12/27/17 04:15 (Microzide) 12.5 mg DAILY PO 12/27/17 09:00 12/29/17 09:05 (Lopressor) 50 mg BID PO 12/27/17 09:00 12/29/17 09:05 (KCl) 20 meq Q12HR PO 12/27/17 09:00 12/29/17 09:04 (Flomax) 0.4 mg DAILY PO 12/27/17 09:00 12/29/17 09:04 (Ultram) 50 mg Q4H PRN PO 12/27/17 07:30 12/29/17 05:54 (Lasix) 40 mg BID@ PO 12/27/17 09:00 12/29/17 09:05 (D50w (Vial) Inj) 50 ml UNSCH PRN IV PUSH 12/27/17 08:00 12/28/17 04:20 (Glucagon Inj) 1 mg UNSCH PRN OTHER 12/27/17 08:00 (Keppra) 500 mg Q12HR PO 12/27/17 09:00 12/29/17 09:04 Dextrose/Sodium Chloride 1,000 ml @ 100 mls/hr Q10H IV 12/28/17 04:15 12/29/17 10:15 (Santyl Oint) 1 applic BID TOPICAL 12/28/17 21:00 12/29/17 09:05 Vital Signs / I&O Vital Signs Date Time Temp Pulse Resp B/P (MAP) Pulse Ox O2 Delivery O2 Flow Rate FiO2 12/29/17 10:00 68 12/29/17 08:00 83 12/29/17 07:00 100 Nasal Cannula 2.00 12/29/17 06:00 81 12/29/17 04:00 80 12/29/17 04:00 97.9 80 17 113/76 (88) 100 12/29/17 02:00 80 12/29/17 00:00 97.8 80 20 113/80 (91) 100 12/29/17 00:00 80 12/28/17 22:00 80 12/28/17 21:00 100 Nasal Cannula 3.00 12/28/17 20:00 80 12/28/17 20:00 97.7 80 28 127/78 (94) 100 12/28/17 19:00 100 Nasal Cannula 3.00 35 12/28/17 18:34 100 Nasal Cannula 3.00 12/28/17 18:00 80 12/28/17 16:00 80 12/28/17 16:00 98.2 80 19 108/77 (87) 100 12/28/17 14:00 81 I/O 12/28/17 12/28/17 12/28/17 12/29/17 12/29/17 12/29/17 07:00 15:00 23:00 07:00 15:00 23:00 Intake Total 1350 ml 1000 ml 600 ml Output Total 1752 ml 1400 ml 850 ml Balance -402 ml 1000 ml -800 ml -850 ml Intake Oral 350 ml 600 ml IV Total 1000 ml 1000 ml Output Urine Total 1750 ml 1400 ml 850 ml Drainage Total 2 ml # Bowel Movements 0 0 0 Physical Exam GENERAL: NAD, lethargic SKIN: Warm and dry. HEAD: Atraumatic. Normocephalic. EYES: Pupils equal and round. No scleral icterus. No injection or drainage. ENT: No nasal bleeding or discharge. Mucous membranes pink and moist. NECK: Trachea midline. No JVD. CARDIOVASCULAR: Irregularly irregular RESPIRATORY: No accessory muscle use. Clear to auscultation. Breath sounds equal bilaterally. GASTROINTESTINAL: Abdomen soft, non-tender, nondistended. Hepatic and splenic margins not palpable. MUSCULOSKELETAL: Extremities without clubbing, cyanosis, or edema. No obvious deformities. NEUROLOGICAL: No focal deficits noted Laboratory Laboratory Tests Test 12/28/17 18:50 12/29/17 03:56 Nasal Screen MRSA (PCR) MRSA NOT DETECTED Erythrocyte Sedimentation Rate 1 mm/hr C-Reactive Protein 1.91 MG/DL Assessment and Plan Problem List: (1) Atrial fibrillation ICD Codes: I48.91 - Unspecified atrial fibrillation (2) Subdural hemorrhage ICD Codes: I62.00 - Nontraumatic subdural hemorrhage, unspecified Status: Acute (3) Cardiomyopathy ICD Codes: I42.9 - Cardiomyopathy, unspecified (4) S/P ICD (internal cardiac defibrillator) procedure ICD Codes: Z95.810 - Presence of automatic (implantable) cardiac defibrillator Assessment and Plan 1) Baseline Afib Rhythm is mostly paced (not PVCs) with occasional [place] beats 2) Interrogation showing Afib Rare NSVT ~3seconds with last episode weeks ago 3) No Syncope Patient denies Discussed with , its been "months" since his last fall 4) Subdural hemorrhage Secondary to Xarelto Xarelto stopped Christiano Robledo DO Dec 29, 2017 12:22
--- NOTE | 2017-12-29 15:40 | HHI.CCPN ---
Subjective Remarks/Hospital Course 12/27: 82 male transferred from [facility] due to a subdural hematoma on the left of mixed attenuation up to 10 mm in maximal width. He reports that at the point of wound care of his feet he developed some weakness in the hands when he was holding a flashlight. No loss of consciousness reported. The patient takes Xarelto for atrial fibrillation. Patient underwent ICD/pacemaker placement by Dr. He in late 2016. Onset sudden. He has had no weakness or neurologic complaints since. He denies trauma that he can remember. Patient was transferred from [facility] after being accepted by Dr. Brown from neurosurgery as his head CT showed left sided subdural hematoma of mixed attenuation (10 mm). He is being admitted to the critical care medicine service. I evaluated the patient following his arrival to the ICU. At that time he was resting comfortably and denied any headache, chest pain, palpitations, dizziness, nausea or any visual disturbance. He and his said that he was back in his normal state without any weakness. He does have a history of kidney problems and leg swelling as well as chronic leg wounds for which he has been followed by wound care and a industrial cleaning technician. He is prediabetic. Of note patient received Keppra 1 g IV, Kcentra 2500 units IV, aspirin 324 mg at [facility]. 12/28: Patient did well over the night however he was found to be hypoglycemic though asymptomatic. He was started on D5NS with improvement in his blood glucose. He feels fine, he thinks his weakness is better. Afebrile. 12/29: On D5NS for hypoglycemia. Otherwise awake, following commands. Breathing comfortably on room air. Objective Vital Signs Date Time Temp Pulse Resp B/P (MAP) Pulse Ox O2 Delivery O2 Flow Rate FiO2 12/29/17 14:00 79 12/29/17 12:00 97.9 16 112/64 (80) 99 12/29/17 07:00 Nasal Cannula 2.00 12/28/17 19:00 35 Intake and Output 12/29/17 12/29/17 12/30/17 08:00 16:00 00:00 Output Total 850 ml Balance -850 ml Result Diagram: 12/28/17 0400 12/28/[address] from outside hospital with left-sided subdural hematoma-10mm. Mixed attenuation without any mass effect Objective Remarks General - elderly gentleman, awake, in no distress HEENT - pupils equal, reactive, sclerae anicteric, neck supple, no nuchal rigidity, neck veins not distended, no carotid bruit CV - regular S1, S2, no murmurs Chest - clear b/l, good air entry, no wheezes Abdomen - soft, non-tender, non-distended, BS present, no hepatomegaly, no splenomegaly Skin - + rash over b/l LE extremities Extremities - warm and well perfused, 3+ pitting edema, decreased peripheral pulses, + wound on right second toe, dry, no discharge, TTP, warm with some surrounding erythema Neuro - AAO X 3, motor 5/5 over all extremities, sensation is intact, EOMI, smile symmetric, tongue midline, shrugs shoulders A/P Assessment and Plan 1. Left-sided subdural hematoma - patient doing well 2. Coagulopathy - received Kcentra 3. Recurrent hypoglycemia - unclear why, better 4. H/o Afib 5. Chronic right foot ulcer with concern for OM 6. Cardiomyopathy 7. CKD 1. Continue neurochecks 2. Serial blood glucose. Change D5NS to D10 @ 30cc/hr 3. Check ESR and CRP, consult ID 4. On diet 5. GI prophylaxis 6. DVT prophylaxis with SCD's 7. transfer patient to hospitalist service, tx out of ICU. 8. Continue cardiac meds, diuretics. Xarelto discontinued on admission. cardiology/ Neurosurgery following. Bayron Herndon MD Dec 29, 2017 15:40
[2017-12-29] MEDS: DEXTROSE 10% INJ 1,000 ML IV SCH (16:00)
--- NOTE | 2017-12-29 16:53 | PD.WCN.NOT ---
Wound Consult Description: Consult for Wound Management of bilateral feet per Dr Herndon Communicated with: GRETCHEN Kay Recommendation: Continue Povodine-Iodine to intact black eschar BID. Continue Santyl daily to open wounds with slough and cover with gauze dressing. Please use NORMAL SALINE to cleanse wounds when using with Santyl. Additional Information: *Patient not seen on [facility]* Spoke with GRETCHEN Kay regarding wounds and the orders patient received from her software support representative outpatient. Patient is followed outpatient by wound care and has visits from home health care RN. Step by step instructions were reviewed with GRETCHEN Kay and are appropriate to continue for the wounds that were described to teletypewriter installer. Gia Adler [facility] Dec 29, 2017 16:53
[2017-12-29] MEDS: MAGNESIUM HYDROXIDE SUSP 30 ML CUP PO PRN (17:44)
[2017-12-30] VITALS (11 sets, daily range): BP systolic 101–142; BP diastolic 70–99; PULSE 72–86; RESP 18–20; TEMP 97.3–98.3; O2SAT 94–96
[2017-12-30] MEDS: METOPROLOL TARTRATE 50 MG TAB PO SCH ×2 (08:18→21:46)
[2017-12-30] MEDS: levETIRAcetam 500 MG TAB PO SCH ×2 (08:18→21:46)
[2017-12-30] MEDS: TAMSULOSIN HCL 0.4 MG CAP PO SCH (08:19)
[2017-12-30] MEDS: FUROSEMIDE 40 MG TAB PO SCH ×2 (08:19→17:21)
[2017-12-30] MEDS: HYDROCHLOROTHIAZIDE 12.5 MG CAP PO SCH (08:19)
[2017-12-30] MEDS: SODIUM CHLORIDE 0.9% FLUSH 10 ML FLUSH IV FLUSH SCH ×2 (08:20→21:46)
[2017-12-30] MEDS: COLLAGENASE OINT 30 GM TUBE TOPICAL SCH ×2 (08:20→21:47)
[2017-12-30] MEDS: POTASSIUM CHLORIDE 20 MEQ CONTROLLED RELEASE TAB PO SCH ×2 (08:20→21:46)
--- NOTE | 2017-12-30 13:26 | PD.CONS ---
History of Present Illness Service Infectious disease Consult Requested By Dr Edwin Herndon Reason for Consult Evaluate patient with bilateral feet ulcers, question infected Primary Care Physician Adolfo Siddiqui MD Diagnoses: History of Present Illness Patient seen and examined. Records reviewed. Patient is an 82-year-old male, presented initially to [facility] for evaluation of weakness in his hand. He also have some numbness. Imaging study in [place] revealed subdural hematoma and so the patient was transferred to [facility] for neurosurgical evaluation. There is mention all previous fall probably several weeks prior to admission. Neurosurgery saw the patient, and land was to just do conservative treatment. Patient was getting some blood thinners and this has been put on hold. Patient had undergone ICD pacemaker placement for cardiomyopathy. He was initially in the ICU, and has been transferred out. Patient currently also having problem with hypoglycemia and has been getting glucose infusion. He was also found to have some ulcers in his toes. Patient stated his had it for several weeks although on further questioning look like it may be longer than that but the patient is not a very good historian. He has been having pain in both feet and both legs when he ambulates. The pain had preceded the development of the ulcers, and actually the patient apparently saw his primary care physician who ordered some studies to check for circulation. He was told that it was okay. Patient lives with the in an independent living facility, and when he started having the ulcers in his toes, he apparently started seeing a county surveyor as well as the wound service. His does the dressing changes daily on both feet. Patient was also given a course of antibiotics which she took for several weeks and had completed the course. He does not remember the name of Dr. Kian de la garza. Patient since admission has not been febrile. He is complaining of more pain in his right lower extremity than the left lower extremity. Infectious disease consultation has been requested to evaluate the foot ulcers. There is been no imaging studies done of his feet. Wound care has seen the patient and he is getting Santyl ointment to all the ulcers in the toes. Review of Systems Constitutional: DENIES: Fever, Chills, Night Sweats Eyes: DENIES: Eye pain Ears, nose, mouth, throat: DENIES: Nasal discharge, Oral lesions, Ear Pain, Sinus Pain Respiratory: DENIES: Cough, Shortness of breath Cardiovascular: COMPLAINS OF: Lower Extremity Edema, DENIES: Chest pain, Palpitations Gastrointestinal: DENIES: Constipation, Diarrhea, Nausea, Vomiting, Difficulty Swallowing Genitourinary: DENIES: Dysuria Integumentary: DENIES: Rash Neurologic: DENIES: Headache Psychiatric: DENIES: Hallucinations Past Family Social History Allergies: Coded Allergies: No Known Allergies (Unverified , 09/14/13) Past Medical History Atrial flutter. Congestive heart failure. Dementia Hyperlipidemia. Hypertension Nonischemic cardiomyopathy. Paroxysmal atrial fibrillation Post-traumatic stress disorder. Renal cancer Benign prostate hypertrophy. Sleep apnea. Bilateral feet ulcers Past Surgical History Electrophysiology study with atrial flutter ablation (October 28, 2017). Placement of a [employer] dual-chamber defibrillator (model number [id number], serial number [id number], October 29, 2017). Cryoablation of renal cell CA Active Ordered Medications Current Medications Medications (Trade) Dose Ordered Sig/Daniel Route Start Time Stop Time Status Last Admin (NS Flush) 2 ml UNSCH PRN IV FLUSH 12/27/17 04:15 (NS Flush) 2 ml BID IV FLUSH 12/27/17 09:00 12/30/17 08:20 (Tylenol) 650 mg Q6H PRN PO 12/27/17 04:15 Miscellaneous Information 1 Q361D XX 12/27/17 04:15 12/27/17 04:15 (Chlorhexidine 2% Cloth) 3 pack Taper DAILY@04 TOP 12/28/17 04:00 12/24/18 03:59 (Chlorhexidine 2% Cloth) 3 pack UNSCH PRN TOP 12/27/17 04:15 (Milk Of Magnesia Liq) 30 ml Q12H PRN PO 12/27/17 04:15 12/29/17 17:44 (Senokot) 17.2 mg Q12H PRN PO 12/27/17 04:15 (Dulcolax Supp) 10 mg DAILY PRN RECTAL 12/27/17 04:15 (Lactulose Liq) 30 ml DAILY PRN PO 12/27/17 04:15 12/29/17 17:44 (Microzide) 12.5 mg DAILY PO 12/27/17 09:00 12/30/17 08:19 (Lopressor) 50 mg BID PO 12/27/17 09:00 12/30/17 08:18 (KCl) 20 meq Q12HR PO 12/27/17 09:00 12/30/17 08:20 (Flomax) 0.4 mg DAILY PO 12/27/17 09:00 12/30/17 08:19 (Ultram) 50 mg Q4H PRN PO 12/27/17 07:30 12/29/17 05:54 (Lasix) 40 mg BID@09,18 PO 12/27/17 09:00 12/30/17 08:19 (D50w (Vial) Inj) 50 ml UNSCH PRN IV PUSH 12/27/17 08:00 12/28/17 04:20 (Glucagon Inj) 1 mg UNSCH PRN OTHER 12/27/17 08:00 (Keppra) 500 mg Q12HR PO 12/27/17 09:00 12/30/17 08:18 (Santyl Oint) 1 applic BID TOPICAL 12/28/17 21:00 12/30/17 08:20 Dextrose 1,000 ml @ 30 mls/hr Q24H IV 12/29/17 16:00 12/29/17 16:00 Family History Noncontributory Social History Used to smoke, quit 25 years ago (+) ETOH use No illicit drugs Physical Exam Vital Signs Vital Signs Date Time Temp Pulse Resp B/P (MAP) Pulse Ox O2 Delivery O2 Flow Rate FiO2 12/30/17 12:46 98.2 77 18 130/86 (101) 96 12/30/17 12:39 72 12/30/17 08:44 97.9 80 18 115/88 (97) 94 12/30/17 08:44 94 Room Air 12/30/17 08:05 78 12/30/17 08:01 86 12/30/17 06:46 Room Air 12/30/17 04:53 97.9 81 18 101/70 (80) 96 12/30/17 00:10 98.3 79 18 142/91 (108) 94 12/29/17 20:00 88 12/29/17 20:00 97.6 88 22 110/64 (79) 98 12/29/17 19:00 100 Nasal Cannula 2.00 12/29/17 18:00 89 12/29/17 16:00 90 12/29/17 16:00 97.9 96 16 108/78 (88) 96 12/29/17 14:00 79 Physical Exam GENERAL: Patient is a well-nourished, well-developed male, awake and alert, not in respiratory distress. SKIN: Cool and dry. No generalized rash HEAD: Atraumatic. Normocephalic. No temporal wasting, or tenderness. EYES: [place] conjunctiva. No petechia or hemorrhage. Pupils equal, round and reactive to light. Extraocular movements full and intact. No scleral icterus. No injection or drainage. EARS, NOSE AND THROAT: Nose without bleeding or purulent nasal discharge. No sinus tenderness. Mucous membranes pink and moist. No oral lesions noted. NECK: Trachea midline. Supple and not tender, no meningeal signs CARDIOVASCULAR: Regular rate and rhythm. No murmurs, rubs or gallops heard. ICD L chest, looks ok, no evidence of infection RESPIRATORY: Clear to auscultation. Breath sounds equal bilaterally. No rales , wheezing or rhonchi. Decrease at the bases ABDOMEN: Soft, non-tender, nondistended. Bowel sounds present and normoactive. No guarding. No rebound. No organomegaly. EXTREMITIES: Has bilateral LE edema, has dark reddish hue to both legs, with some bluish discoloration at distal feet. Both feet are cold, tender on R foot , when touched or moved. There are ulcers on his R big toe, 2nd and 3rd toe dorsally, no odor. There is an ulcer on his L big toe, no purulence, no odor. No calf tenderness. NEUROLOGICAL: Awake and alert. Cranial nerves grossly intact. Motor grossly within normal limits. PSYCHIATRIC: calm and cooperative. LINE: No evidence of infection : Has condom cath in place, urine looks clear Result Diagram: 12/28/17 0400 12/28/17 0400 Imaging RADIOLOGY STUDIES/FILMS REVIEWED Head CT 12/28/17 0600 Signed Impressions: Service Date/Time: Thursday, December 28, 2017 05:22 - CONCLUSION: Extra axial hemorrhage over the left frontal and parietal lobes likely related to subdural hemorrhage. A parietal component is definite a subdural hemorrhage. The left frontal component has a more elliptical shape raising the possibility of a possible mild epidural hemorrhage versus a subdural hemorrhage in this region. No fracture is seen. There is 4 mm of left to right midline shift. Osman Arreguin MD Assessment and Plan Assessment and Plan IMPRESSION Admitted and found to have SDH Likely ischemic ulcers both feet - with PVD? or due to underlying low flow state from his cardiomyopathy Renal insufficiency Neutropenia Hypoglycemia RECOMMENDATION Xray toes Get results of tests done in his primary care office Arterial doppler Bladder scan Renal US Repeat CBC to follow neutropenia On Rx for hypoglycemia Will likely need podiatry, vascular and renal evaluation Wound care to wounds Will not start any Abx at this time I will follow along with you Thank you for this consultation Discussed Condition With D/W Sylvia Willis MD Dec 30, 2017 13:26
[2017-12-30] MEDS: DEXTROSE 10% INJ 1,000 ML IV SCH (15:28)
--- NOTE | 2017-12-30 15:52 | RADRPT ---
EXAM DATE/TIME: 12/30/2017 14:39 [facility] COMPARISON: No previous studies available for comparison. INDICATIONS : Ulcers to the left great toe. MEDICAL HISTORY : CHF. Cardiomyopathy. A-Fib. HTN. Sleep apnea. Renal CA. Arthritis. Osteoporosis. SURGICAL HISTORY : Pacemaker. ENCOUNTER: Subsequent ACUITY: 1 week PAIN SCORE: 4/10 LOCATION: Left foot FINDINGS: Three view examination of the left foot demonstrates soft tissue swelling without dislocation or frac ture. Soft tissue swelling and arthritic changes of the great toe with some erosions. The tarsal bon es appear intact. There is fusion of the interphalangeal joint of the second digit. Scattered degene rative changes. There is minimal ulceration of the great toe. CONCLUSION: Soft tissue swelling and arthritic changes great toe. Shaq Diaz MD on December 30, 2017 at 15:47 Board Certified Radiologist. This report was verified electronically.
--- NOTE | 2017-12-30 15:54 | RADRPT ---
EXAM DATE/TIME: 12/30/2017 14:43 [facility] COMPARISON: No previous studies available for comparison. INDICATIONS : Ulcers to the toes of right foot. MEDICAL HISTORY : CHF. Cardiomyopathy. A-Fib. HTN. Sleep apnea. Renal CA. Arthritis. Osteo porosis. SURGICAL HISTORY : Pacemaker. ENCOUNTER: Subsequent ACUITY: 2 weeks PAIN SCORE: 7/10 LOCATION: Right foot FINDINGS: Three view examination of the right foot demonstrates diffuse soft tissue swelling. Scattered degener ative changes. No fracture or dislocation. The tarsal bones appear intact. The interphalangeal and metatarsophalangeal joints are intact. The calcaneus is intact. Bony mineralization is normal. CONCLUSION: Soft tissue swelling and scattered degenerative changes. Shaq Diaz MD on December 30, 2017 at 15:50 Board Certified Radiologist. This report was verified electronically.
[2017-12-30 17:35] LABS: AUTOMATED NEUTROPHIL # 2.9 TH/MM3 (1.8-7.7); BASOPHIL % 0.7 % (0.0-2.0); EOSINOPHIL % 0.6 % (0.0-4.0); HEMATOCRIT 52.9 % (39.0-51.0); LYMPH % 29.9 % (9.0-44.0); LYMPHOCYTE # 1.6 TH/MM3 (1.0-4.8); MEAN CELL VOLUME 77.9 FL (80.0-100.0); MEAN CORPUSCULAR HGB CONC 32.1 % (32.0-36.0); MEAN PLATELET VOLUME 10.5 FL (7.0-11.0); MONO % 15.6 % (0.0-8.0); MONOCYTE # 0.8 TH/MM3 (0-0.9); NEUT % 53.2 % (16.0-70.0); PLATELET COUNT 117 TH/MM3 (150-450); RED CELL DISTRIBUTION WIDTH 17.6 % (11.6-17.2); WHITE BLOOD COUNT 5.4 TH/MM3 (4.0-11.0)
--- NOTE | 2017-12-30 17:47 | HHI.NSPN ---
(Shaq Saez) History Chief Complaint: No complaints. Some confusion. Left SDH. (Shaq Saez) Interval History 82-year-old -Iranian gentleman who was transferred from [facility] after he presented there with complaints of transient weakness in his hands, the right more than left. He is also complaining of some numbness in his hands bilaterally and his feet. He has had a nonhealing wound in his feet and is being seen by podiatry and was informed that he has likely neuropathy as well as peripheral vascular disease contributing to this. His speech is dysarthric but his relates it is because he has a dry mouth but otherwise he has been verbalizing well. At this point he denies any weakness in the upper or lower extremities and states that that has cleared up. He had a headache earlier but this has also resolved at this point and denies any nausea. Apparently a couple months ago he hit his head with no loss of consciousness and possibly may have hit his head again two weeks ago but the relates that he has, but the patient denies this. In any case, he is on Xarelto for chronic atrial fibrillation and also had an AICD device placed a couple months ago by Dr. Neri fernández at [facility]. CT scan of the head obtained reveals about 8-9 mm left frontal subacute subdural hemorrhage with a mild mass effect and about 2 to 3 mm [id number] midline shift. He was transferred to [facility] for further management and has been admitted to the intensive care unit with consults to cardiology and neurosurgery. 12/28/17: Agent denies any headaches, nausea, vomiting, weakness, or paresthesias. He states he is cold. 12/29/17: Pt awakens to voice but fatigued this morning. Denies headache, nausea, vomiting, or paresthesias in face or UEs. Complains of discomfort in his feet. 12/30/17: Pt awakens to voice. Denies headaches, nausea, or vomiting. Follows commands well. Speech appropriate. (Shaq Saez) Review of Systems General: Negative for: fever, chills, insomnia Respiratory: Negative for: shortness of breath, cough, sputum Cardiovascular: Negative for: chest pain Gastrointestinal: Negative for: nausea, vomitting, diarrhea, constipation ( Shaq Saez) Exam Results Vital Signs Date Time Temp Pulse Resp B/P (MAP) Pulse Ox O2 Delivery O2 Flow Rate FiO2 12/30/17 16:46 97.3 80 18 132/88 (103) 96 12/30/17 08:44 Room Air 12/29/17 19:00 2.00 12/28/17 19:00 35 Intake and Output 12/30/17 12/30/17 12/31/17 08:00 16:00 00:00 Intake Total 240 ml 240 ml Output Total 600 ml Balance -360 ml 240 ml (Shaq Saez) Physical Examination General: Pt awakens to voice and appears comfortably resting in his bed. Eyes: Pupils 3mm bilaterally reactive bilaterally. No scleral icterus. Resp: CTA bilaterally Heart: NSR no murmurs Abd: Soft positive bs Skin: No cyanosis or erythema. He has nonhealing wounds on his feet, managed by podiatry outpatient. Muscle: Moves all 4 extremities with 5/5 strength in extremities. Neuro: Pt awakens easily to voice. Pupils 3mm bilaterally reactive bilaterally. Follows commands well. Speech clear and appropriate. Mild confusion. (Shaq Saez) Lab, Micro, Other Results Last Impressions Foot X-Ray 12/30/17 0000 Signed Impressions: Service Date/Time: Saturday, December 30, 2017 14:43 - CONCLUSION: Soft tissue swelling and scattered degenerative changes. Shaq Diaz MD Head CT 12/28/17 0600 Signed Impressions: Service Date/Time: Thursday, December 28, 2017 05:22 - CONCLUSION: Extra axial hemorrhage over the left frontal and parietal lobes likely related to subdural hemorrhage. A parietal component is definite a subdural hemorrhage. The left frontal component has a more elliptical shape raising the possibility of a possible mild epidural hemorrhage versus a subdural hemorrhage in this region. No fracture is seen. There is 4 mm of left to right midline shift. Osman Arreguin MD Laboratory Tests Test 12/30/17 17:14 12/30/17 12/30/1718 15:00 23:00 07:00 Intake Total 240 ml Balance 240 ml Intake Oral 240 ml Bladder Scan Volume Amount 27 ml # Voids 3 (Shaq Saez) Medical Decision Making Impression and Plan A: 1. A small left frontal subacute subdural hemorrhage with mild mass effect. 2. On Xarelto anticoagulation for his atrial fibrillation with also an AICD device in place. 3. 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 4. Diabetes mellitus. 5. Cardiomyopathy. 6. Hypertension. PLAN: Continue with Neuro checks Continue with rehab efforts. Continue with medical management. (Shaq Saez) Attending Statement The exam, history, and the medical decision-making described in the above note were completed with the assistance of the mid-level provider. I reviewed and agree with the findings presented. I attest that I had a [id number] encounter with the patient on the same day, and personally performed and documented my assessment and findings in the medical record. F/U CT head in 2 weeks and at that point will assess if anticoagulation can be resumed. Discussed with . (Robinson Brown MD) Shaq Saez Dec 30, 2017 17:47 Robinson Brown MD Dec 31, 2017 08:31
[2017-12-30 18:10] LABS: BICARBONATE 34.9 MEQ/L (21.0-32.0); CALCIUM 8.3 MG/DL (8.5-10.1); CREATININE 1.9 MG/DL (0.60-1.30)
--- NOTE | 2017-12-30 18:28 | HHI.PR ---
Subjective Remarks awake ,alert oriented x 3 interactive good po denies any pain Objective Vitals Vital Signs Date Time Temp Pulse Resp B/P (MAP) Pulse Ox O2 Delivery O2 Flow Rate FiO2 12/30/17 16:46 97.3 80 18 132/88 (103) 96 12/30/17 12:46 98.2 77 18 130/86 (101) 96 12/30/17 12:39 72 12/30/17 08:44 97.9 80 18 115/88 (97) 94 12/30/17 08:44 94 Room Air 12/30/17 08:05 78 12/30/17 08:01 86 12/30/17 06:46 Room Air 12/30/17 04:53 97.9 81 18 101/70 (80) 96 12/30/17 00:10 98.3 79 18 142/91 (108) 94 12/29/17 20:00 88 12/29/17 20:00 97.6 88 22 110/64 (79) 98 12/29/17 19:00 100 Nasal Cannula 2.00 I/O 12/29/17 12/29/17 12/29/17 12/30/17 12/30/17 12/30/17 07:00 15:00 23:00 07:00 15:00 23:00 Intake Total 1543 ml 240 ml 240 ml Output Total 850 ml 1000 ml 600 ml Balance -850 ml 543 ml -360 ml 240 ml Intake Oral 580 ml 240 ml 240 ml IV Total 963 ml Output Urine Total 850 ml 1000 ml 600 ml Bladder Scan Volume Amount 27 ml # Voids 3 # Bowel Movements 0 0 Result Diagram: 12/30/17 1714 12/30/17 1714 Imaging Last Impressions Foot X-Ray 12/30/17 0000 Signed Impressions: Service Date/Time: Saturday, December 30, 2017 14:43 - CONCLUSION: Soft tissue swelling and scattered degenerative changes. Shaq Diaz MD Head CT 12/28/17 0600 Signed Impressions: Service Date/Time: Thursday, December 28, 2017 05:22 - CONCLUSION: Extra axial hemorrhage over the left frontal and parietal lobes likely related to subdural hemorrhage. A parietal component is definite a subdural hemorrhage. The left frontal component has a more elliptical shape raising the possibility of a possible mild epidural hemorrhage versus a subdural hemorrhage in this region. No fracture is seen. There is 4 mm of left to right midline shift. Osman Arreguin MD Objective Remarks awake anicteric no rales regular rhythm' abdomen soft, condom in place extremities + pretibial edema dry superficial on big toes and foot toes are cool to touch- but with intact sensory and moves all spontaneously A/P Assessment and Plan 82 years old male Left-sided subdural hematoma - patient doing well- neurologically neuro check stable Xarelto DC Coagulopathy - received Kcentra. Xarelto DC Recurrent hypoglycemia - ff blood sugars- good readings- on D 10 consider DC D 10 in am good po- regular diet get hemoglobin A1C H/o Afib S/P PM Cardiomyopathy- not in clinical failure Cardiology ff continue on Lasix 40 mg bid, HCTZ 12.5 mg daily. Lopressor 50 mg bid, KCL ff lytes Bilateral foot /toes ulcers consult Podiatry - patient states he ff with a Podiatry as OP- Dr. 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 good po ff BMP. Renal/Bladder ultrasound requested PT eval and treat Sung Sheikh MD Dec 30, 2017 18:28
[2017-12-30 18:48] LABS: SPHEROCYTES OCC (NORMAL)
--- NOTE | 2017-12-30 21:21 | RADRPT ---
EXAM DATE/TIME: 12/30/2017 15:46 [facility] COMPARISON: No previous studies available for comparison. EXTERNAL COMPARISON : [facility], Renal ultrasounds, July 17, 2017, 09/25/16, and 09/27/15. INDICATIONS : Obstruction. MEDICAL HISTORY : Cardiovascular disease. Hypertension. Renal cancer SURGICAL HISTORY : Pacemaker. ENCOUNTER: Initial ACUITY: 1 day PAIN SCORE: 0/10 LOCATION: Bilateral flank MEASUREMENTS: RIGHT KIDNEY: 11.0 x 6.2 x 4.4 cm LEFT KIDNEY: 11.1 x 4.2 x 5.6 cm BLADDER: FINDINGS: RIGHT KIDNEY: Renal cortex is normal in thickness and echotexture. No hydronephrosis, stone, or solid mass. LEFT KIDNEY: Renal cortex is normal in thickness and echotexture. No hydronephrosis, stone, or solid mass. There is a left mid pole renal cyst measuring 1.1 x 1.1 x 1.2 cm. BLADDER: There is diffuse thickening of the urinary bladder wall. CONCLUSION: 1. Diffuse urinary bladder wall thickening. 2. 1.2 cm left mid pole renal cyst. 3. Unremarkable right kidney. Isaiah Jackson MD on December 30, 2017 at 21:16 Board Certified Radiologist. This report was verified electronically.
--- NOTE | 2017-12-30 23:44 | PD.CARD.PN ---
Subjective Subjective Remarks Patient was seen earlier today, late entry note Up to the chair, doing well Objective Medications Current Medications Medications (Trade) Dose Ordered Sig/Daniel Route Start Time Stop Time Status Last Admin (NS Flush) 2 ml UNSCH PRN IV FLUSH 12/27/17 04:15 (NS Flush) 2 ml BID IV FLUSH 12/27/17 09:00 12/30/17 08:20 (Tylenol) 650 mg Q6H PRN PO 12/27/17 04:15 Miscellaneous Information 1 Q361D XX 12/27/17 04:15 12/27/17 04:15 (Chlorhexidine 2% Cloth) 3 pack Taper DAILY@04 TOP 12/28/17 04:00 12/24/18 03:59 (Chlorhexidine 2% Cloth) 3 pack UNSCH PRN TOP 12/27/17 04:15 (Milk Of Magnesia Liq) 30 ml Q12H PRN PO 12/27/17 04:15 12/29/17 17:44 (Senokot) 17.2 mg Q12H PRN PO 12/27/17 04:15 (Dulcolax Supp) 10 mg DAILY PRN RECTAL 12/27/17 04:15 (Lactulose Liq) 30 ml DAILY PRN PO 12/27/17 04:15 12/29/17 17:44 (Microzide) 12.5 mg DAILY PO 12/27/17 09:00 12/30/17 08:19 (Lopressor) 50 mg BID PO 12/27/17 09:00 12/30/17 21:46 (KCl) 20 meq Q12HR PO 12/27/17 09:00 12/30/17 21:46 (Flomax) 0.4 mg DAILY PO 12/27/17 09:00 12/30/17 08:19 (Ultram) 50 mg Q4H PRN PO 12/27/17 07:30 12/29/17 05:54 (Lasix) 40 mg BID@ PO 12/27/17 09:00 12/30/17 17:21 (D50w (Vial) Inj) 50 ml UNSCH PRN IV PUSH 12/27/17 08:00 12/28/17 04:20 (Glucagon Inj) 1 mg UNSCH PRN OTHER 12/27/17 08:00 (Keppra) 500 mg Q12HR PO 12/27/17 09:00 12/30/17 21:46 (Santyl Oint) 1 applic BID TOPICAL 12/28/17 21:00 12/30/17 21:47 Dextrose 1,000 ml @ 30 mls/hr Q24H IV 12/29/17 16:00 12/30/17 15:28 Vital Signs / I&O Vital Signs Date Time Temp Pulse Resp B/P (MAP) Pulse Ox O2 Delivery O2 Flow Rate FiO2 12/30/17 18:30 80 12/30/17 16:46 97.3 80 18 132/88 (103) 96 12/30/17 16:01 80 12/30/17 12:46 98.2 77 18 130/86 (101) 96 12/30/17 12:39 72 12/30/17 08:44 97.9 80 18 115/88 (97) 94 12/30/17 08:44 94 Room Air 12/30/17 08:05 78 12/30/17 08:01 86 12/30/17 06:46 Room Air 12/30/17 04:53 97.9 81 18 101/70 (80) 96 12/30/17 00:10 98.3 79 18 142/91 (108) 94 I/O 12/30/17 12/30/17 12/30/17 12/31/17 12/31/17 12/31/17 07:00 15:00 23:00 07:00 15:00 23:00 Intake Total 240 ml 240 ml Output Total 600 ml Balance -360 ml 240 ml Intake Oral 240 ml 240 ml Output Urine Total 600 ml Bladder Scan Volume Amount 27 ml # Voids 3 Physical Exam GENERAL: NAD SKIN: Warm and dry. HEAD: Atraumatic. Normocephalic. EYES: Pupils equal and round. No scleral icterus. No injection or drainage. ENT: No nasal bleeding or discharge. Mucous membranes pink and moist. NECK: Trachea midline. No JVD. CARDIOVASCULAR: Irregularly irregular RESPIRATORY: No accessory muscle use. Clear to auscultation. Breath sounds equal bilaterally. GASTROINTESTINAL: Abdomen soft, non-tender, nondistended. Hepatic and splenic margins not palpable. MUSCULOSKELETAL: Extremities without clubbing, cyanosis, or edema. No obvious deformities. NEUROLOGICAL: No focal deficits noted Laboratory Laboratory Tests Test 12/30/17 17:14 White Blood Count 5.4 TH/MM3 Red Blood Count 6.80 MIL/MM3 Hemoglobin 17.0 GM/DL Hematocrit 52.9 % Mean Corpuscular Volume 77.9 FL Mean Corpuscular Hemoglobin 25.0 PG Mean Corpuscular Hemoglobin Concent 32.1 % Red Cell Distribution Width 17.6 % Platelet Count 117 TH/MM3 Mean Platelet Volume 10.5 FL Neutrophils (%) (Auto) 53.2 % Lymphocytes (%) (Auto) 29.9 % Monocytes (%) (Auto) 15.6 % Eosinophils (%) (Auto) 0.6 % Basophils (%) (Auto) 0.7 % Neutrophils # (Auto) 2.9 TH/MM3 Lymphocytes # (Auto) 1.6 TH/MM3 Monocytes # (Auto) 0.8 TH/MM3 Eosinophils # (Auto) 0.0 TH/MM3 Basophils # (Auto) 0.0 TH/MM3 CBC Comment AUTO DIFF Differential Comment AUTO DIFF CONFIRMED Platelet Estimate LOW Platelet Morphology Comment ENLARGED Basophilic Stippling FAINT Spherocytes OCC Blood Urea Nitrogen 31 MG/DL Creatinine 1.90 MG/DL Random Glucose 112 MG/DL Calcium Level 8.3 MG/DL Sodium Level 138 MEQ/L Potassium Level 4.7 MEQ/L Chloride Level 98 MEQ/L Carbon Dioxide Level 34.9 MEQ/L Anion Gap 5 MEQ/L Estimat Glomerular Filtration Rate 41 ML/MIN Imaging Last 24 hours Impressions Renal Ultrasound 12/30/17 0000 Signed Impressions: Service Date/Time: Saturday, December 30, 2017 15:46 - CONCLUSION: 1. Diffuse urinary bladder wall thickening. 2. 1.2 cm left mid pole renal cyst. 3. Unremarkable right kidney. Isaiah Jackson MD Foot X-Ray 12/30/17 0000 Signed Impressions: Service Date/Time: Saturday, December 30, 2017 14:43 - CONCLUSION: Soft tissue swelling and scattered degenerative changes. Shaq Diaz MD Foot X-Ray 12/30/17 0000 Signed Impressions: Service Date/Time: Saturday, December 30, 2017 14:39 - CONCLUSION: Soft tissue swelling and arthritic changes great toe. Shaq Diza MD Assessment and Plan Problem List: (1) Atrial fibrillation ICD Codes: I48.91 - Unspecified atrial fibrillation (2) Subdural hemorrhage ICD Codes: I62.00 - Nontraumatic subdural hemorrhage, unspecified Status: Acute (3) Cardiomyopathy ICD Codes: I42.9 - Cardiomyopathy, unspecified (4) S/P ICD (internal cardiac defibrillator) procedure ICD Codes: Z95.810 - Presence of automatic (implantable) cardiac defibrillator Assessment and Plan 1) Baseline Afib Rhythm is mostly paced (not PVCs) with occasional [place] beats Question of wide complex tachycardia, appears to be Afib with aberrancy 2) Interrogation showing Afib Rare NSVT ~3seconds with last episode weeks ago Repeat interrogation (12/30/17) showing no alerts 3) No Syncope Patient denies Discussed with , its been "months" since his last fall 4) Subdural hemorrhage Secondary to Xarelto Xarelto stopped Christiano Robledo DO Dec 30, 2017 23:44
[2017-12-31] VITALS (7 sets, daily range): BP systolic 97–130; BP diastolic 64–95; PULSE 59–98; RESP 17–22; TEMP 97.2–98.8; O2SAT 95–97
[2017-12-31] MEDS: CHLORHEXIDINE GLUCONATE 2 % 1 PACK (2 CLOTHS) TOP SCH (04:00)
[2017-12-31] MEDS: HYDROCHLOROTHIAZIDE 12.5 MG CAP PO SCH (08:26)
[2017-12-31] MEDS: METOPROLOL TARTRATE 50 MG TAB PO SCH ×2 (08:26→21:12)
[2017-12-31] MEDS: POTASSIUM CHLORIDE 20 MEQ CONTROLLED RELEASE TAB PO SCH ×2 (08:26→21:12)
[2017-12-31] MEDS: TAMSULOSIN HCL 0.4 MG CAP PO SCH (08:26)
[2017-12-31] MEDS: levETIRAcetam 500 MG TAB PO SCH ×2 (08:26→21:12)
[2017-12-31] MEDS: FUROSEMIDE 40 MG TAB PO SCH ×2 (08:27→18:08)
[2017-12-31] MEDS: SODIUM CHLORIDE 0.9% FLUSH 10 ML FLUSH IV FLUSH SCH ×2 (08:33→21:11)
[2017-12-31 08:45] LABS: HEMATOCRIT 50.8 % (39.0-51.0); HEMOGLOBIN 16.4 GM/DL (13.0-17.0); MEAN CELL VOLUME 78.1 FL (80.0-100.0); MEAN CORPUSCULAR HEMOGLOBIN 25.2 PG (27.0-34.0); MEAN CORPUSCULAR HGB CONC 32.3 % (32.0-36.0); MEAN PLATELET VOLUME 11.9 FL (7.0-11.0); PLATELET COUNT 125 TH/MM3 (150-450); RED BLOOD COUNT 6.51 MIL/MM3 (4.50-5.90); RED CELL DISTRIBUTION WIDTH 17.3 % (11.6-17.2); WHITE BLOOD COUNT 4.9 TH/MM3 (4.0-11.0)
[2017-12-31 09:02] LABS: BICARBONATE 34.8 MEQ/L (21.0-32.0); BLOOD UREA NITROGEN 34 MG/DL (7-18); CALCIUM 8.6 MG/DL (8.5-10.1); CHLORIDE 98 MEQ/L (98-107); CREATININE 1.94 MG/DL (0.60-1.30); GLOMERULAR FILTRATION RATE 40 ML/MIN (>89); GLUCOSE,RANDOM 106 MG/DL (74-106); SODIUM (NA) 138 MEQ/L (136-145)
--- NOTE | 2017-12-31 13:17 | HHI.NSPN ---
(Shaq Saez) History Chief Complaint: No complaints. Some confusion. Left SDH. (Shaq Saez) Interval History 82-year-old -[place] gentleman who was transferred from [facility] Emergency Room after he presented there with complaints of transient weakness in his hands, the right more than left. He is also complaining of some numbness in his hands bilaterally and his feet. He has had a nonhealing wound in his feet and is being seen by podiatry and was informed that he has likely neuropathy as well as peripheral vascular disease contributing to this. His speech is dysarthric but his relates it is because he has a dry mouth but otherwise he has been verbalizing well. At this point he denies any weakness in the upper or lower extremities and states that that has cleared up. He had a headache earlier but this has also resolved at this point and denies any nausea. Apparently a couple months ago he hit his head with no loss of consciousness and possibly may have hit his head again two weeks ago but the relates that he has, but the patient denies this. In any case, he is on Xarelto for chronic atrial fibrillation and also had an AICD device placed a couple months ago by Dr. Neri fernández at [facility]. CT scan of the head obtained reveals about 8-9 mm left frontal subacute subdural hemorrhage with a mild mass effect and about 2 to 3 mm [id number] midline shift. He was transferred to [facility] for further management and has been admitted to the intensive care unit with consults to cardiology and neurosurgery. 12/28/17: Agent denies any headaches, nausea, vomiting, weakness, or paresthesias. He states he is cold. 12/29/17: Pt awakens to voice but fatigued this morning. Denies headache, nausea, vomiting, or paresthesias in face or UEs. Complains of discomfort in his feet. 12/30/17: Pt awakens to voice. Denies headaches, nausea, or vomiting. Follows commands well. Speech appropriate. 12/31/17: Patient awake and alert sitting up in a reclining chair. He denies any headaches. Mild nausea. States his feet are feeling better today. (Shaq Saez) Review of Systems General: Negative for: fever, chills, insomnia Respiratory: Negative for: shortness of breath, cough, sputum Cardiovascular: Negative for: chest pain Gastrointestinal: Positive for: nausea (mild), Negative for: vomitting, diarrhea, constipation (Shaq Saez) Exam Results Vital Signs Date Time Temp Pulse Resp B/P (MAP) Pulse Ox O2 Delivery O2 Flow Rate FiO2 12/31/17 08:00 97.8 80 18 109/84 (92) 96 12/30/17 23:00 Nasal Cannula 2.00 12/28/17 19:00 35 (Shaq Saez) Physical Examination General: Pt awakens to voice and appears comfortably resting in his bed. Eyes: Pupils 3mm bilaterally reactive bilaterally. No scleral icterus. Resp: CTA bilaterally Heart: NSR no murmurs Abd: Soft positive bs Skin: No cyanosis or erythema. He has nonhealing wounds on his feet, managed by podiatry outpatient. Muscle: Moves all 4 extremities with 5/5 strength in extremities. Neuro: Pt awakens easily to voice. Pupils 3mm bilaterally reactive bilaterally. Follows commands well. Speech clear and appropriate. Mild confusion. (Shaq Saez) Lab, Micro, Other Results Last Impressions Renal Ultrasound 12/30/17 0000 Signed Impressions: Service Date/Time: Saturday, December 30, 2017 15:46 - CONCLUSION: 1. Diffuse urinary bladder wall thickening. 2. 1.2 cm left mid pole renal cyst. 3. Unremarkable right kidney. Isaiah Jackson MD Foot X-Ray 12/30/17 0000 Signed Impressions: Service Date/Time: Saturday, December 30, 2017 14:43 - CONCLUSION: Soft tissue swelling and scattered degenerative changes. Shaq Diaz MD Head CT 12/28/17 0600 Signed Impressions: Service Date/Time: Thursday, December 28, 2017 05:22 - CONCLUSION: Extra axial hemorrhage over the left frontal and parietal lobes likely related to subdural hemorrhage. A parietal component is definite a subdural hemorrhage. The left frontal component has a more elliptical shape raising the possibility of a possible mild epidural hemorrhage versus a subdural hemorrhage in this region. No fracture is seen. There is 4 mm of left to right midline shift. Osman Arreguin MD Laboratory Tests Test 12/30/17 17:14 12/31/17 07:56 White Blood Count 5.4 TH/MM3 4.9 TH/MM3 Red Blood Count 6.80 MIL/MM3 6.51 MIL/MM3 Hemoglobin 17.0 GM/DL 16.4 GM/DL Hematocrit 52.9 % 50.8 % Mean Corpuscular Volume 77.9 FL 78.1 FL Mean Corpuscular Hemoglobin 25.0 PG 25.2 PG Mean Corpuscular Hemoglobin Concent 32.1 % 32.3 % Red Cell Distribution Width 17.6 % 17.3 % Platelet Count 117 TH/MM3 125 TH/MM3 Mean Platelet Volume 10.5 FL 11.9 FL Neutrophils (%) (Auto) 53.2 % Lymphocytes (%) (Auto) 29.9 % Monocytes (%) (Auto) 15.6 % Eosinophils (%) (Auto) 0.6 % Basophils (%) (Auto) 0.7 % Neutrophils # (Auto) 2.9 TH/MM3 Lymphocytes # (Auto) 1.6 TH/MM3 Monocytes # (Auto) 0.8 TH/MM3 Eosinophils # (Auto) 0.0 TH/MM3 Basophils # (Auto) 0.0 TH/MM3 CBC Comment AUTO DIFF Differential Comment AUTO DIFF CONFIRMED Platelet Estimate LOW Platelet Morphology Comment ENLARGED Basophilic Stippling FAINT Spherocytes OCC Blood Urea Nitrogen 31 MG/DL 34 MG/DL Creatinine 1.90 MG/DL 1.94 MG/DL Random Glucose 112 MG/DL 106 MG/DL Calcium Level 8.3 MG/DL 8.6 MG/DL Sodium Level 138 MEQ/L 138 MEQ/L Potassium Level 4.7 MEQ/L 4.8 MEQ/L Chloride Level 98 MEQ/L 98 MEQ/L Carbon Dioxide Level 34.9 MEQ/L 34.8 MEQ/L Anion Gap 5 MEQ/L 5 MEQ/L Estimat Glomerular Filtration Rate 41 ML/MIN 40 ML/MIN 12/31/17 12/31/17 01/01/18 15:00 23:00 07:00 # Voids 1 # Bowel Movements 0 (Shaq Saez) Medical Decision Making Impression and Plan A: 1. A small left frontal subacute subdural hemorrhage with mild mass effect. 2. On Xarelto anticoagulation for his atrial fibrillation with also an AICD device in place. 3. 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 4. Diabetes mellitus. 5. Cardiomyopathy. 6. Hypertension. PLAN: Continue with Neuro checks Continue with rehab efforts. Continue with medical management. Neurosurgically stable for rehab placement (Shaq Saez) Attending Statement The exam, history, and the medical decision-making described in the above note were completed with the assistance of the mid-level provider. I reviewed and agree with the findings presented. I attest that I had a [id number] encounter with the patient on the same day, and personally performed and documented my assessment and findings in the medical record. (Robinson Brown MD) Shaq Saez Dec 31, 2017 13:17 Robinson Brown MD Dec 31, 2017 17:20
--- NOTE | 2017-12-31 14:25 | HHI.PR ---
Subjective Remarks Patient resting in chair Denied any complain Discussed with his she is concerned about his foot lesion and wound Objective Vitals Vital Signs Date Time Temp Pulse Resp B/P (MAP) Pulse Ox O2 Delivery O2 Flow Rate FiO2 12/31/17 08:00 97.8 80 18 109/84 (92) 96 12/31/17 08:00 98 12/31/17 04:00 98.8 59 18 130/95 (107) 95 12/31/17 00:00 97.2 81 22 111/78 (89) 97 12/30/17 23:00 Nasal Cannula 2.00 12/30/17 20:00 97.5 82 20 127/99 (108) 96 12/30/17 18:30 80 12/30/17 16:46 97.3 80 18 132/88 (103) 96 12/30/17 16:01 80 I/O 12/30/17 12/30/17 12/30/17 12/31/17 12/31/17 12/31/17 07:00 15:00 23:00 07:00 15:00 23:00 Intake Total 240 ml 240 ml Output Total 600 ml Balance -360 ml 240 ml Intake Oral 240 ml 240 ml Output Urine Total 600 ml Bladder Scan Volume Amount 27 ml # Voids 3 2 1 # Bowel Movements 0 0 Result Diagram: 12/31/17 0756 12/31/17 0756 Objective Remarks GENERAL: This is a well-nourished, well-developed patient, in no apparent distress. SKIN: No rashes, warm and dry HEAD: Atraumatic. Normocephalic. EYES: Pupils equal round and reactive. Extraocular motions intact. No scleral icterus. ENT: Nose without bleeding, or drainage, Airway patent. NECK: Trachea midline. Supple CARDIOVASCULAR: Regular rate and rhythm without murmurs, gallops, or rubs. RESPIRATORY: Fair air entry bilaterally. No wheezes, rales, or rhonchi. GASTROINTESTINAL: Abdomen soft, non-tender, nondistended. Positive bowel sounds MUSCULOSKELETAL: Extremities without clubbing, cyanosis, or edema. Pedal pulses appreciated, bilateral feet in gauze due to wound NEUROLOGICAL: Awake and alert. Moves all extremity. Normal speech.no focal neurological deficit A/P Assessment and Plan 82 years old male Left-sided subdural hematoma - patient doing well- neurologically neuro check stable Xarelto DC Coagulopathy - received Kcentra. Xarelto DC Recurrent hypoglycemia - ff blood sugars- good readings- on D 10 consider DC D 10 in am good po- regular diet get hemoglobin A1C H/o Afib S/P PM Cardiomyopathy- not in clinical failure Cardiology ff:1) Baseline Afib, Rhythm is mostly paced (not PVCs) with occasional hoh beats Question of wide complex tachycardia, appears to be Afib with aberrancy 2) Interrogation showing Afib Rare NSVT ~3seconds with last episode weeks ago Repeat interrogation (12/30/17) showing no alerts 3) No Syncope Patient denies continue on Lasix 40 mg bid, HCTZ 12.5 mg daily. Lopressor 50 mg bid, KCL ff lytes Bilateral foot /toes ulcers consult Podiatry - patient states he ff with a Podiatry as OP- Dr. 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 good po ff BMP. Renal/Bladder ultrasound showing bladder wall thickening will need follow up with urology as an outpatient Discharge Planning Patient with acute renal failure, still not at baseline yet Also still on D10 for hypoglycemia Kareem Sheridan MD Dec 31, 2017 14:25
--- NOTE | 2017-12-31 15:06 | RADRPT ---
EXAM DATE/TIME: 12/30/2017 00:00 [place] COMPARISON: No previous studies available for comparison. INDICATIONS : Bilateral Toe Ulcers TECHNIQUE: Five-station segmental examination of the lower extremities was performed. Pulsed-cuff waveform tracings and pressures were recorded. Ankle-brachial indices and toe-brachial indices were calculated. PRESSURES (mmHg): Brachial (arm): Right 113 Left IV SITE Lower Thigh: Right 169 Left 160 Calf: Right 157 Left 137 Ankle: Right 124 Left 139 Toe: Right 0 Left 0 DALI: Right 1.10 Left 1.23 TBI: Right 0.00 Left 0.00 PULSED CUFF WAVEFORMS: Demonstrate normal amplitude bilaterally. CONCLUSION: DALI is within the normal range bilaterally. Vu Vallejo Jr., MD on December 31, 2017 at 15:02 Board Certified Radiologist. This report was verified electronically.
--- NOTE | 2017-12-31 16:59 | PD.CARD.PN ---
Subjective Subjective Remarks Up to the chair, doing well Walking with physical therapy Objective Medications Current Medications Medications (Trade) Dose Ordered Sig/Daniel Route Start Time Stop Time Status Last Admin (NS Flush) 2 ml UNSCH PRN IV FLUSH 12/27/17 04:15 (NS Flush) 2 ml BID IV FLUSH 12/27/17 09:00 12/31/17 08:33 (Tylenol) 650 mg Q6H PRN PO 12/27/17 04:15 Miscellaneous Information 1 Q361D XX 12/27/17 04:15 12/27/17 04:15 (Chlorhexidine 2% Cloth) 3 pack Taper DAILY@04 TOP 12/28/17 04:00 12/24/18 03:59 (Chlorhexidine 2% Cloth) 3 pack UNSCH PRN TOP 12/27/17 04:15 (Milk Of Magnesia Liq) 30 ml Q12H PRN PO 12/27/17 04:15 12/29/17 17:44 (Senokot) 17.2 mg Q12H PRN PO 12/27/17 04:15 (Dulcolax Supp) 10 mg DAILY PRN RECTAL 12/27/17 04:15 (Lactulose Liq) 30 ml DAILY PRN PO 12/27/17 04:15 12/29/17 17:44 (Microzide) 12.5 mg DAILY PO 12/27/17 09:00 12/31/17 08:26 (Lopressor) 50 mg BID PO 12/27/17 09:00 12/31/17 08:26 (KCl) 20 meq Q12HR PO 12/27/17 09:00 12/31/17 08:26 (Flomax) 0.4 mg DAILY PO 12/27/17 09:00 12/31/17 08:26 (Ultram) 50 mg Q4H PRN PO 12/27/17 07:30 12/29/17 05:54 (Lasix) 40 mg BID@ PO 12/27/17 09:00 12/31/17 08:27 (D50w (Vial) Inj) 50 ml UNSCH PRN IV PUSH 12/27/17 08:00 12/28/17 04:20 (Glucagon Inj) 1 mg UNSCH PRN OTHER 12/27/17 08:00 (Keppra) 500 mg Q12HR PO 12/27/17 09:00 12/31/17 08:26 (Santyl Oint) 1 applic BID TOPICAL 12/28/17 21:00 12/30/17 21:47 Dextrose 1,000 ml @ 30 mls/hr Q24H IV 12/29/17 16:00 12/30/17 15:28 Vital Signs / I&O Vital Signs Date Time Temp Pulse Resp B/P (MAP) Pulse Ox O2 Delivery O2 Flow Rate FiO2 12/31/17 08:00 97.8 80 18 109/84 (92) 96 12/31/17 08:00 98 12/31/17 04:00 98.8 59 18 130/95 (107) 95 12/31/17 00:00 97.2 81 22 111/78 (89) 97 12/30/17 23:00 Nasal Cannula 2.00 12/30/17 20:00 97.5 82 20 127/99 (108) 96 12/30/17 18:30 80 I/O 12/30/17 12/30/17 12/30/17 12/31/17 12/31/17 12/31/17 07:00 15:00 23:00 07:00 15:00 23:00 Intake Total 240 ml 240 ml Output Total 600 ml Balance -360 ml 240 ml Intake Oral 240 ml 240 ml Output Urine Total 600 ml Bladder Scan Volume Amount 27 ml # Voids 3 2 1 # Bowel Movements 0 0 Physical Exam GENERAL: NAD SKIN: Warm and dry. HEAD: Atraumatic. Normocephalic. EYES: Pupils equal and round. No scleral icterus. No injection or drainage. ENT: No nasal bleeding or discharge. Mucous membranes pink and moist. NECK: Trachea midline. No JVD. CARDIOVASCULAR: Irregularly irregular RESPIRATORY: No accessory muscle use. Clear to auscultation. Breath sounds equal bilaterally. GASTROINTESTINAL: Abdomen soft, non-tender, nondistended. Hepatic and splenic margins not palpable. MUSCULOSKELETAL: Extremities without clubbing, cyanosis, or edema. No obvious deformities. NEUROLOGICAL: No focal deficits noted Laboratory Laboratory Tests Test 12/30/17 17:14 12/31/17 07:56 White Blood Count 5.4 TH/MM3 4.9 TH/MM3 Red Blood Count 6.80 MIL/MM3 6.51 MIL/MM3 Hemoglobin 17.0 GM/DL 16.4 GM/DL Hematocrit 52.9 % 50.8 % Mean Corpuscular Volume 77.9 FL 78.1 FL Mean Corpuscular Hemoglobin 25.0 PG 25.2 PG Mean Corpuscular Hemoglobin Concent 32.1 % 32.3 % Red Cell Distribution Width 17.6 % 17.3 % Platelet Count 117 TH/MM3 125 TH/MM3 Mean Platelet Volume 10.5 FL 11.9 FL Neutrophils (%) (Auto) 53.2 % Lymphocytes (%) (Auto) 29.9 % Monocytes (%) (Auto) 15.6 % Eosinophils (%) (Auto) 0.6 % Basophils (%) (Auto) 0.7 % Neutrophils # (Auto) 2.9 TH/MM3 Lymphocytes # (Auto) 1.6 TH/MM3 Monocytes # (Auto) 0.8 TH/MM3 Eosinophils # (Auto) 0.0 TH/MM3 Basophils # (Auto) 0.0 TH/MM3 CBC Comment AUTO DIFF Differential Comment AUTO DIFF CONFIRMED Platelet Estimate LOW Platelet Morphology Comment ENLARGED Basophilic Stippling FAINT Spherocytes OCC Blood Urea Nitrogen 31 MG/DL 34 MG/DL Creatinine 1.90 MG/DL 1.94 MG/DL Random Glucose 112 MG/DL 106 MG/DL Calcium Level 8.3 MG/DL 8.6 MG/DL Sodium Level 138 MEQ/L 138 MEQ/L Potassium Level 4.7 MEQ/L 4.8 MEQ/L Chloride Level 98 MEQ/L 98 MEQ/L Carbon Dioxide Level 34.9 MEQ/L 34.8 MEQ/L Anion Gap 5 MEQ/L 5 MEQ/L Estimat Glomerular Filtration Rate 41 ML/MIN 40 ML/MIN Assessment and Plan Problem List: (1) Atrial fibrillation ICD Codes: I48.91 - Unspecified atrial fibrillation (2) Subdural hemorrhage ICD Codes: I62.00 - Nontraumatic subdural hemorrhage, unspecified Status: Acute (3) Cardiomyopathy ICD Codes: I42.9 - Cardiomyopathy, unspecified (4) S/P ICD (internal cardiac defibrillator) procedure ICD Codes: Z95.810 - Presence of automatic (implantable) cardiac defibrillator Assessment and Plan 1) Baseline Afib Rhythm is mostly paced (not PVCs) with occasional [place] beats Question of wide complex tachycardia, which was Afib with aberrancy 2) Interrogation showing Afib Rare NSVT ~3seconds with last episode weeks ago Repeat interrogation (12/30/17) showing no alerts 3) No Syncope Patient denies Discussed with , its been "months" since his last fall 4) Subdural hemorrhage Secondary to Xarelto Xarelto stopped Christiano Robledo DO Dec 31, 2017 16:58
[2018-01-01] VITALS (16 sets, daily range): BP systolic 120–147; BP diastolic 75–99; PULSE 50–97; RESP 16–18; TEMP 97.2–97.9; O2SAT 92–98
[2018-01-01] MEDS: COLLAGENASE OINT 30 GM TUBE TOPICAL SCH ×3 (00:23→21:00)
[2018-01-01] MEDS: CHLORHEXIDINE GLUCONATE 2 % 1 PACK (2 CLOTHS) TOP SCH (02:44)
[2018-01-01] MEDS: SODIUM CHLORIDE 0.9% FLUSH 10 ML FLUSH IV FLUSH SCH ×2 (09:00→21:00)
[2018-01-01] MEDS: HYDROCHLOROTHIAZIDE 12.5 MG CAP PO SCH (09:46)
[2018-01-01] MEDS: POTASSIUM CHLORIDE 20 MEQ CONTROLLED RELEASE TAB PO SCH ×2 (09:46→21:20)
[2018-01-01] MEDS: levETIRAcetam 500 MG TAB PO SCH ×2 (09:46→21:20)
[2018-01-01] MEDS: METOPROLOL TARTRATE 50 MG TAB PO SCH ×2 (09:46→21:20)
[2018-01-01] MEDS: FUROSEMIDE 40 MG TAB PO SCH ×2 (09:46→18:53)
[2018-01-01] MEDS: TAMSULOSIN HCL 0.4 MG CAP PO SCH (09:46)
--- NOTE | 2018-01-01 09:48 | MB ---
cc: BRITT ASHBY DATE OF CONSULTATION 12/31/2017 CHIEF COMPLAINT Bilateral foot ulcerations. HISTORY OF PRESENT ILLNESS Mr. Aly states that he has had these ulcerations for a prolonged period of time but he cannot say exactly when. He does see Dr. Cruz routinely for these ulcerations which appear to be due to ischemia. He was admitted for a subdural hematoma after being transferred from [facility]. He denies any pain to the feet at this time and feels he has had some improvement over the last few months. PAST MEDICAL HISTORY 1. Chronic kidney disease. 2. Diabetes. 3. Hypertension. 4. Atrial fibrillation. 5. Sleep apnea. 6. Benign prostate hypertension. PAST SURGICAL HISTORY 1. ICD placement. 2. Cardiomyopathy. 3. Renal cancer status post cryoablation. ALLERGIES No known drug allergies. MEDICATIONS Please see list. VITAL SIGNS Temperature is 97.7, pulse 81, respiratory rate 18, blood pressure 118/84, pulse ox 97% O2 on room air. LABORATORY DATA White count 4.9, hemoglobin 15.4, hematocrit 50.8, platelets 125. Sodium 138, potassium 4.8, chloride 98, carbon dioxide 34.8, BUN 34, hemoglobin A1c 6. X-RAYS Foot x-rays are negative for any gas in the soft tissues or cortical erosion relating to the ulceration. Arterial Dopplers show normal ABIs. Toe pressures were not done PHYSICAL EXAMINATION LEFT FOOT: On physical exam the patient has nonpalpable pulses to the left foot. Both the DP and PT are absent. The foot is cool to touch. Gross sensation is severely diminished. Cap fill time is less than 3 seconds. There is a fibronecrotic ulceration on the dorsal aspect of the left hallux, approximately 1 cm x 1 cm x 0. No erythema, no malodor. Small serous drainage noted. RIGHT FOOT: There are palpable but diminished DP pulses, nonpalpable PT pulses. The foot does feel warmer to touch but also eye is swollen. There are fibronecrotic ulcerations to the first and second digits and an eschar to the lateral fourth digit. The second digit ulceration encompasses the entire dorsal aspect of the digit and does have some exposed tendon. No erythema, no malodor, mild serous drainage. ASSESSMENT AND PLAN Bilateral ischemic toe wounds, Stage II and III, noninfected. The patient's wounds are stable, have not change since his last office evaluation and do not have any obvious signs of infection at this time. I suggest continuing with current wound care treatment. 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 We will continue to monitor the patient intermittently while in-house. However, plan for continued conservative care at this time. Thank you this consultation. Dr. Cruz will be updated on the patient's status. Britt RANDOLPH/YVAN /6:53 PM /9:25 AM
--- NOTE | 2018-01-01 11:20 | HHI.IDPN ---
Subjective Subjective Remarks Patient is an 82-year-old male, presented initially to [facility] for evaluation of weakness in his hand. He also have some numbness. Imaging study in [place] revealed subdural hematoma and so the patient was transferred to [facility] for neurosurgical evaluation. There is mention all previous fall probably several weeks prior to admission. Neurosurgery saw the patient, and land was to just do conservative treatment. Patient was getting some blood thinners and this has been put on hold. Patient had undergone ICD pacemaker placement for cardiomyopathy. He was initially in the ICU, and has been transferred out. Patient currently also having problem with hypoglycemia and has been getting glucose infusion. He was also found to have some ulcers in his toes. Patient stated his had it for several weeks although on further questioning look like it may be longer than that but the patient is not a very good historian. He has been having pain in both feet and both legs when he ambulates. The pain had preceded the development of the ulcers, and actually the patient apparently saw his primary care physician who ordered some studies to check for circulation. He was told that it was okay. Patient lives with the in an independent living facility, and when he started having the ulcers in his toes, he apparently started seeing a gas plant dispatcher as well as the wound service. His does the dressing changes daily on both feet. Patient was also given a course of antibiotics which she took for several weeks and had completed the course. He does not remember the name of Dr. Kian de la garza. Patient since admission has not been febrile. He is complaining of more pain in his right lower extremity than the left lower extremity. Infectious disease consultation has been requested to evaluate the foot ulcers. There is been no imaging studies done of his feet. Wound care has seen the patient and he is getting Santyl ointment to all the ulcers in the toes. Notes reviewed Pain in both LE same, worse on R than L Podiatry notes reviewed Arterial Doppler normal Creatinine slightly better Bladder scan 27 ml Renal US ok Antibiotics Current Medications No antibiotics Medications (Trade) Dose Ordered Sig/Daniel Route Start Time Stop Time Status Last Admin (NS Flush) 2 ml UNSCH PRN IV FLUSH 12/27/17 04:15 (NS Flush) 2 ml BID IV FLUSH 12/27/17 09:00 12/31/17 21:11 (Tylenol) 650 mg Q6H PRN PO 12/27/17 04:15 Miscellaneous Information 1 Q361D XX 12/27/17 04:15 12/27/17 04:15 (Chlorhexidine 2% Cloth) 3 pack Taper DAILY@04 TOP 12/28/17 04:00 12/24/18 03:59 (Chlorhexidine 2% Cloth) 3 pack UNSCH PRN TOP 12/27/17 04:15 (Milk Of Magnesia Liq) 30 ml Q12H PRN PO 12/27/17 04:15 12/29/17 17:44 (Senokot) 17.2 mg Q12H PRN PO 12/27/17 04:15 (Dulcolax Supp) 10 mg DAILY PRN RECTAL 12/27/17 04:15 (Lactulose Liq) 30 ml DAILY PRN PO 12/27/17 04:15 12/29/17 17:44 (Microzide) 12.5 mg DAILY PO 12/27/17 09:00 01/01/18 09:46 (Lopressor) 50 mg BID PO 12/27/17 09:00 01/01/18 09:46 (KCl) 20 meq Q12HR PO 12/27/17 09:00 01/01/18 09:46 (Flomax) 0.4 mg DAILY PO 12/27/17 09:00 01/01/18 09:46 (Ultram) 50 mg Q4H PRN PO 12/27/17 07:30 12/29/17 05:54 (Lasix) 40 mg BID@ PO 12/27/17 09:00 01/01/18 09:46 (D50w (Vial) Inj) 50 ml UNSCH PRN IV PUSH 12/27/17 08:00 12/28/17 04:20 (Glucagon Inj) 1 mg UNSCH PRN OTHER 12/27/17 08:00 (Keppra) 500 mg Q12HR PO 12/27/17 09:00 01/01/18 09:46 (Santyl Oint) 1 applic BID TOPICAL 12/28/17 21:00 01/01/18 00:23 Dextrose 1,000 ml @ 30 mls/hr Q24H IV 12/29/17 16:00 12/30/17 15:28 Lines PIV Past Medical History Atrial flutter. Congestive heart failure. Dementia Hyperlipidemia. Hypertension Nonischemic cardiomyopathy. Paroxysmal atrial fibrillation Post-traumatic stress disorder. Renal cancer Benign prostate hypertrophy. Sleep apnea. Bilateral feet ulcers Past Surgical History Electrophysiology study with atrial flutter ablation (October 28, 2017). Placement of a [employer] dual-chamber defibrillator (model number [id number], serial number [id number], October 29, 2017). Cryoablation of renal cell CA Allergies: Coded Allergies: No Known Allergies (Unverified , 09/14/13) Objective . Vital Signs Date Time Temp Pulse Resp B/P (MAP) Pulse Ox O2 Delivery O2 Flow Rate FiO2 01/01/18 04:20 97.8 77 18 147/81 (103) 98 01/01/18 04:05 78 01/01/18 00:35 97.9 81 17 127/95 (106) 95 01/01/18 00:01 80 12/31/17 22:30 Room Air 12/31/17 20:40 97.3 67 17 122/93 (103) 95 12/31/17 20:01 83 12/31/17 16:00 97.7 81 18 118/84 (95) 97 12/31/17 16:00 96 12/31/17 12:00 98.2 80 18 97/64 (75) 95 12/31/17 12:00 79 . Laboratory Tests Test 12/30/17 17:14 12/31/17 07:56 White Blood Count 5.4 TH/MM3 4.9 TH/MM3 Red Blood Count 6.80 MIL/MM3 6.51 MIL/MM3 Hemoglobin 17.0 GM/DL 16.4 GM/DL Hematocrit 52.9 % 50.8 % Mean Corpuscular Volume 77.9 FL 78.1 FL Mean Corpuscular Hemoglobin 25.0 PG 25.2 PG Mean Corpuscular Hemoglobin Concent 32.1 % 32.3 % Red Cell Distribution Width 17.6 % 17.3 % Platelet Count 117 TH/MM3 125 TH/MM3 Mean Platelet Volume 10.5 FL 11.9 FL Neutrophils (%) (Auto) 53.2 % Lymphocytes (%) (Auto) 29.9 % Monocytes (%) (Auto) 15.6 % Eosinophils (%) (Auto) 0.6 % Basophils (%) (Auto) 0.7 % Neutrophils # (Auto) 2.9 TH/MM3 Lymphocytes # (Auto) 1.6 TH/MM3 Monocytes # (Auto) 0.8 TH/MM3 Eosinophils # (Auto) 0.0 TH/MM3 Basophils # (Auto) 0.0 TH/MM3 CBC Comment AUTO DIFF Differential Comment AUTO DIFF CONFIRMED Platelet Estimate LOW Platelet Morphology Comment ENLARGED Basophilic Stippling FAINT Spherocytes OCC Laboratory Tests Test 12/30/17 17:14 12/31/17 07:56 01/01/18 03:40 Blood Urea Nitrogen 31 MG/DL 34 MG/DL Creatinine 1.90 MG/DL 1.94 MG/DL Random Glucose 112 MG/DL 106 MG/DL Calcium Level 8.3 MG/DL 8.6 MG/DL Sodium Level 138 MEQ/L 138 MEQ/L Potassium Level 4.7 MEQ/L 4.8 MEQ/L Chloride Level 98 MEQ/L 98 MEQ/L Carbon Dioxide Level 34.9 MEQ/L 34.8 MEQ/L Anion Gap 5 MEQ/L 5 MEQ/L Estimat Glomerular Filtration Rate 41 ML/MIN 40 ML/MIN Hemoglobin A1c 6.0 % Imaging Renal Ultrasound 12/30/17 0000 Signed Impressions: Service Date/Time: Saturday, December 30, 2017 15:46 - CONCLUSION: 1. Diffuse urinary bladder wall thickening. 2. 1.2 cm left mid pole renal cyst. 3. Unremarkable right kidney. Isaiah Jackson MD Foot X-Ray 12/30/17 0000 Signed Impressions: Service Date/Time: Saturday, December 30, 2017 14:43 - CONCLUSION: Soft tissue swelling and scattered degenerative changes. Shaq Diaz MD Head CT 12/28/17 0600 Signed Impressions: Service Date/Time: Thursday, December 28, 2017 05:22 - CONCLUSION: Extra axial hemorrhage over the left frontal and parietal lobes likely related to subdural hemorrhage. A parietal component is definite a subdural hemorrhage. The left frontal component has a more elliptical shape raising the possibility of a possible mild epidural hemorrhage versus a subdural hemorrhage in this region. No fracture is seen. There is 4 mm of left to right midline shift. Osman Arreguin MD Physical Exam GENERAL: awake and alert, not in respiratory distress. SKIN: Cool and dry. No generalized rash HEAD: Atraumatic. Normocephalic. No temporal wasting, or tenderness. EYES: Mucarabones conjunctiva. No petechia or hemorrhage. Pupils equal, round and reactive to light. Extraocular movements full and intact. No scleral icterus. No injection or drainage. EARS, NOSE AND THROAT: Nose without bleeding or purulent nasal discharge. No sinus tenderness. Mucous membranes pink and moist. No oral lesions noted. NECK: Trachea midline. Supple and not tender, no meningeal signs CARDIOVASCULAR: Regular rate and rhythm. No murmurs, rubs or gallops heard. ICD L chest, looks ok, no evidence of infection RESPIRATORY: Clear to auscultation. Breath sounds equal bilaterally. No rales , wheezing or rhonchi. Decrease at the bases ABDOMEN: Soft, non-tender, nondistended. Bowel sounds present and normoactive. No guarding. No rebound. No organomegaly. EXTREMITIES: Has bilateral LE edema, improvingm has dark reddish hue to both legs, with some bluish discoloration at distal feet, worse on the R foot. Both feet are cold, tender on R foot, when touched or moved. There are ulcers on his R big toe, 2nd and 3rd toe dorsally, no odor. There is an ulcer on his L big toe, no purulence, no odor. No calf tenderness. NEUROLOGICAL: Awake and alert. Cranial nerves grossly intact. Motor grossly within normal limits. PSYCHIATRIC: calm and cooperative. LINE: No evidence of infection : Has condom cath in place, urine looks clear Assessment & Plan Remarks IMPRESSION Admitted and found to have SDH Likely ischemic ulcers both feet - with PVD? or due to underlying low flow state from his cardiomyopathy - arterial doppler ok, ?small vessel disease - ulcers not infected Renal insufficiency, slightly better Neutropenia, resolved Hypoglycemia RECOMMENDATION Agree to get vascular opinion Patient is off Abx Needs wound care when he gets D/C Continue wound care as per team Nothing new to add D/W Dr Sheridan I will sign off Please reconsult if with new ID issue or question Explained plan to the patient Sylvia Nathan MD Jan 01, 2018 11:20
[2018-01-01 12:31] LABS: BICARBONATE 30.2 MEQ/L (21.0-32.0); CALCIUM 8.3 MG/DL (8.5-10.1); CREATININE 1.71 MG/DL (0.60-1.30)
--- NOTE | 2018-01-01 13:39 | PD.VS.CON ---
History of Present Illness Chief Complaint: Non palpable distal pulse Lower extremity ulcerations (stagnate healing) Consult Requested by: History of Present Illness 82/M poor historian Pt transferred from [facility] due to a (10 mm) left sided subdural hematoma Pt c/o B LE pain R>L with ulcerations that presented for an unknown amount of time per pt Pt states they may have been there for the past few weeks Pt denied F/C Pt denied claudication/rest pain LE warm with motor intact (Karina Bennett) Past/Family/Social History Past Medical History Per EMR CHF Dementia Hyperlipidemia. Hypertension Atrial Flutter Nonischemic cardiomyopathy. Paroxysmal atrial fibrillation Post-traumatic stress disorder. Renal cancer Benign prostate hypertrophy. Past Surgical History Electrophysiology study with atrial flutter ablation (October 28, 2017). Placement of a [employer] dual-chamber defibrillator (model number [id number], serial number [id number], October 29, 2017). Cryoablation of renal cell CA Social History Denied smoking Denied ETOH Denied Illicit drug use (Karina Bennett) Home Medications Reported Medications Bumetanide (Bumetanide) 0.5 Mg Tab, 1 MG PO BID, TAB 0 Refills 12/27/17 Aspirin (Aspirin) 325 Mg Tab, 325 MG PO DAILY, #30 TAB 0 Refills 12/27/17 Hydrochlorothiazide (Hydrochlorothiazide) 12.5 Mg Cap, 12.5 MG PO DAILY, #30 CAP 0 Refills 12/27/17 Tramadol (Tramadol) 50 Mg Tab, 50 MG PO Q4H Y for PAIN, TAB 0 Refills 12/27/17 Rivaroxaban (Xarelto) 15 Mg Tab, 15 MG PO DAILY for Blood Clot Prevention, TAB 0 Refills 10/28/17 Tamsulosin (Tamsulosin) 0.4 Mg Cap, 0.4 MG PO DAILY for Manage Prostate Problems , #30 CAP 0 Refills 10/28/17 Metoprolol Tartrate (Metoprolol Tartrate) 50 Mg Tab, 50 MG PO BID, #60 TAB 0 Refills 10/28/17 Lisinopril (Lisinopril) 40 Mg Tab, 20 MG PO BID for Blood Pressure Management, # 30 TAB 0 Refills 10/28/17 Potassium Chloride Microencaps (Klor-Con M20) 20 Meq Tab, 20 MEQ PO Q12HR for Electrolyte Replacement, #60 TAB 0 Refills 10/28/17 Furosemide (Furosemide) 40 Mg Tab, 40 MG PO BID, #60 TAB 0 Refills 10/28/17 Discontinued Scripts Cephalexin (Keflex) 500 Mg Cap, 500 MG PO Q8H for Infection, #9 CAP 0 Refills Prov:Marianna Darby AREN 10/29/17 Coded Allergies: No Known Allergies (Unverified , 09/14/13) Review of Systems Constitutional: DENIES: Fever, Chills Musculoskeletal: COMPLAINS OF: Muscle aches (Bilateral lower extremity pain ), Back pain Integumentary: COMPLAINS OF: Abnormal pigmentation (Mulitple ulcerations to toes ) (Karina BennettP) Physical Exam Vitals/I&O Date Time Temp Pulse Resp B/P (MAP) Pulse Ox O2 Delivery O2 Flow Rate FiO2 01/01/18 08:00 97.7 82 16 138/99 (112) 95 01/01/18 04:20 97.8 77 18 147/81 (103) 98 01/01/18 04:05 78 01/01/18 00:35 97.9 81 17 127/95 (106) 95 01/01/18 00:01 80 12/31/17 22:30 Room Air 12/31/17 20:40 97.3 67 17 122/93 (103) 95 12/31/17 20:01 83 12/31/17 16:00 97.7 81 18 118/84 (95) 97 12/31/17 16:00 96 01/01/18 01/01/18 01/01/18 07:00 15:00 23:00 Intake Total 240 ml Output Total 1000 ml Balance -760 ml Neuro: Patient is a well-nourished Well-developed male Awake and alert Answers questions Speech clear Neck: No JVD distention Heart: +S1,S2 ICD L chest Lungs: CTA Slightly diminished- Lower bases Abdomen: S/NT Vascular: Palpable Femoral pulses R>L Palpable R DP Non Palpable R PT/LEFT DP/PT LE warm w/ motor intact/Cap refill < 3 sec Extremities: Ulcerations present to LEFT dorsal aspect of hallux Ulcerations present to RIGHT 1,2,3 toe Ulcerations w/o odor or erythema LE warm UE 3/5 LE 4/5 (Karina Bennett) Laboratory Tests Test 01/01/18 11:39 Blood Urea Nitrogen 34 Creatinine 1.71 Random Glucose 97 Calcium Level 8.3 Sodium Level 138 Potassium Level 4.5 Chloride Level 100 Carbon Dioxide Level 30.2 Anion Gap 8 Estimat Glomerular Filtration Rate 47 Last Impressions Renal Ultrasound 12/30/17 0000 Signed Impressions: Service Date/Time: Saturday, December 30, 2017 15:46 - CONCLUSION: 1. Diffuse urinary bladder wall thickening. 2. 1.2 cm left mid pole renal cyst. 3. Unremarkable right kidney. Isaiah Jackson MD Foot X-Ray 12/30/17 0000 Signed Impressions: Service Date/Time: Saturday, December 30, 2017 14:43 - CONCLUSION: Soft tissue swelling and scattered degenerative changes. Shaq Diaz MD Head CT 12/28/17 0600 Signed Impressions: Service Date/Time: Thursday, December 28, 2017 05:22 - CONCLUSION: Extra axial hemorrhage over the left frontal and parietal lobes likely related to subdural hemorrhage. A parietal component is definite a subdural hemorrhage. The left frontal component has a more elliptical shape raising the possibility of a possible mild epidural hemorrhage versus a subdural hemorrhage in this region. No fracture is seen. There is 4 mm of left to right midline shift. Osman Arreguin MD (Karina Bennett) Assessment and Plan Assessment: (1) PAD (peripheral artery disease) (2) Leg pain, bilateral Plan 82/yo non ambulatory male pt c/o B LE pain with multiple toe ulcerations for an unknown amount of time Pt w/ non palpable L distal pulses LE warm with motor intact Reviewed non invasive studies- DALI 12/01 Pt appears to have stable LE wounds, given his multiple comorbidities and recent admission for a left sided subdural hematoma will give the patient time to recover and see him as an out pt in a few weeks Plan Continue wound care Recommend CV risk factor modification (antiplatelet/statin therapy) Will arrange out pt f/u Karina Bennett NP [facility] [phone] (Karina Bennett) Plan Pt seen. Chronic wounds. Palpable R DP. Good pedal signals L. Recent SDH precludes systemic heparinization. According to pt and , chronic wounds. Will set up outpatient f/u. Isaiah Andres MD FACS RPVI car bracer [facility] [phone] (Isaiah Andres MD) Karina Bennett Jan 01, 2018 13:39 Isaiah Andres MD Jan 01, 2018 15:22
--- NOTE | 2018-01-01 15:35 | HHI.PR ---
Subjective Remarks Discussed with the patient and his They had many questions regarding his situation Still on D10, we discussed his poor oral intake will add in sure and will switch him to regular diet for now Also earlier discussed with ID regarding his lower extremity we'll consult [facility] Will consult nephrology for renal failure Today he complain of swelling in his right hands mostly in the middle finger denied any history of gout in the past Objective Vitals Vital Signs Date Time Temp Pulse Resp B/P (MAP) Pulse Ox O2 Delivery O2 Flow Rate FiO2 01/01/18 08:00 97.7 82 16 138/99 (112) 95 01/01/18 04:20 97.8 77 18 147/81 (103) 98 01/01/18 04:05 78 01/01/18 00:35 97.9 81 17 127/95 (106) 95 01/01/18 00:01 80 12/31/17 22:30 Room Air 12/31/17 20:40 97.3 67 17 122/93 (103) 95 12/31/17 20:01 83 12/31/17 16:00 97.7 81 18 118/84 (95) 97 12/31/17 16:00 96 I/O 12/31/17 12/31/17 12/31/17 01/01/18 01/01/18 01/01/18 07:00 15:00 23:00 07:00 15:00 23:00 Intake Total 240 ml Output Total 1000 ml Balance -760 ml Intake Oral 240 ml Output Urine Total 1000 ml # Voids 2 1 8 # Bowel Movements 0 0 1 Result Diagram: 12/31/17 0756 01/01/18 1139 Objective Remarks GENERAL: This is a well-nourished, well-developed patient, in no apparent distress. SKIN: No rashes, warm and dry HEAD: Atraumatic. Normocephalic. EYES: Pupils equal round and reactive. Extraocular motions intact. No scleral icterus. ENT: Nose without bleeding, or drainage, Airway patent. NECK: Trachea midline. Supple CARDIOVASCULAR: Regular rate and rhythm without murmurs, gallops, or rubs. RESPIRATORY: Fair air entry bilaterally. No wheezes, rales, or rhonchi. GASTROINTESTINAL: Abdomen soft, non-tender, nondistended. Positive bowel sounds MUSCULOSKELETAL: Extremities without clubbing, cyanosis, or edema. Pedal pulses appreciated, bilateral feet in gauze due to wound NEUROLOGICAL: Awake and alert. Moves all extremity. Normal speech.no focal neurological deficit A/P Assessment and Plan 01/01: Still on D10, we discussed his poor oral intake will add in sure and will switch him to regular diet for now Also earlier discussed with ID regarding his lower extremity we'll consult [facility] Will consult nephrology for renal failure Today he complain of swelling in his right hands mostly in the middle finger denied any history of gout in the past 82 years old male Left-sided subdural hematoma - patient doing well- neurologically neuro check stable Xarelto DC Coagulopathy - received Kcentra. Xarelto DC Recurrent hypoglycemia - ff blood sugars- good readings- on D 10 consider DC D 10 in am good po- regular diet get hemoglobin A1C H/o Afib S/P PM Cardiomyopathy- not in clinical failure Cardiology ff:1) Baseline Afib, Rhythm is mostly paced (not PVCs) with occasional [place]-apache beats Question of wide complex tachycardia, appears to be Afib with aberrancy 2) Interrogation showing Afib Rare NSVT ~3seconds with last episode weeks ago Repeat interrogation (12/30/17) showing no alerts 3) No Syncope Patient denies continue on Lasix 40 mg bid, HCTZ 12.5 mg daily. Lopressor 50 mg bid, KCL ff lytes Bilateral foot /toes ulcers looks ischemic with cold claimed consult Podiatry - patient states he ff with a Podiatry as OP- Dr. 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 good po ff BMP. Renal/Bladder ultrasound showing bladder wall thickening will need follow up with urology as an outpatient Right middle finger swelling rule out gout Check SANJEEV, uric acid level will be indicated before 2 weeks of the acute episode Will avoid colchicine or NSAIDs due to kidney failure, will start prednisone 40 mg daily and monitor Discharge Planning Patient with acute renal failure, still not at baseline yet Also still on D10 for hypoglycemia Kareem Sheridan MD Jan 01, 2018 15:35
--- NOTE | 2018-01-01 15:53 | PD.CONS ---
[facility] Service Nephrology Consult Requested By Dr. Sheridan Reason for Consult Chronic kidney disease Primary Care Physician Adolfo Siddiqui MD History of Present Illness Patient is a 82-year-old male with history of hypertension, chronic kidney disease who was transferred to [facility] due to subdural hematoma, he has some weakness in the hand, he does have chronic wound and necrotic second toe on the right foot, patient creatinine was elevated however it is declining and currently at 1.7 according to the patient he follows with Dr. Newman in [place], he states that his kidney disease have been stable and he has no dysuria, burning or pain, he denies any kidney stones or prostate problems recently , he recently had IV taken out of right hand he's had this right hand is swollen and had pain. 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 BPH Past Surgical History Right kidney ablated AICD Cardiac ablated Reported Medications Reported Meds & Active Scripts Active Reported Bumetanide 0.5 Mg Tab 1 Mg PO BID Aspirin 325 Mg Tab 325 Mg PO DAILY Hydrochlorothiazide 12.5 Mg Cap 12.5 Mg PO DAILY Tramadol (Tramadol HCl) 50 Mg Tab 50 Mg PO Q4H PRN Xarelto (Rivaroxaban) 15 Mg Tab 15 Mg PO DAILY Tamsulosin (Tamsulosin HCl) 0.4 Mg Cap 0.4 Mg PO DAILY Metoprolol Tartrate 50 Mg Tab 50 Mg PO BID Lisinopril 40 Mg Tab 20 Mg PO BID Klor-Con M20 (Potassium Chloride Microencaps) 20 Meq Tab 20 Meq PO Q12HR Furosemide 40 Mg Tab 40 Mg PO BID Active Ordered Medications Current Medications Medications (Trade) Dose Ordered Sig/Daniel Route Start Time Stop Time Status Last Admin (NS Flush) 2 ml UNSCH PRN IV FLUSH 12/27/17 04:15 (NS Flush) 2 ml BID IV FLUSH 12/27/17 09:00 12/31/17 21:11 (Tylenol) 650 mg Q6H PRN PO 12/27/17 04:15 Miscellaneous Information 1 Q361D XX 12/27/17 04:15 12/27/17 04:15 (Chlorhexidine 2% Cloth) 3 pack Taper DAILY@04 TOP 12/28/17 04:00 12/24/18 03:59 (Chlorhexidine 2% Cloth) 3 pack UNSCH PRN TOP 12/27/17 04:15 (Milk Of Magnesia Liq) 30 ml Q12H PRN PO 12/27/17 04:15 12/29/17 17:44 (Senokot) 17.2 mg Q12H PRN PO 12/27/17 04:15 (Dulcolax Supp) 10 mg DAILY PRN RECTAL 12/27/17 04:15 (Lactulose Liq) 30 ml DAILY PRN PO 12/27/17 04:15 12/29/17 17:44 (Microzide) 12.5 mg DAILY PO 12/27/17 09:00 01/01/18 09:46 (Lopressor) 50 mg BID PO 12/27/17 09:00 01/01/18 09:46 (KCl) 20 meq Q12HR PO 12/27/17 09:00 01/01/18 09:46 (Flomax) 0.4 mg DAILY PO 12/27/17 09:00 01/01/18 09:46 (Ultram) 50 mg Q4H PRN PO 12/27/17 07:30 12/29/17 05:54 (Lasix) 40 mg BID@,18 PO 12/27/17 09:00 01/01/18 09:46 (D50w (Vial) Inj) 50 ml UNSCH PRN IV PUSH 12/27/17 08:00 12/28/17 04:20 (Glucagon Inj) 1 mg UNSCH PRN OTHER 12/27/17 08:00 (Keppra) 500 mg Q12HR PO 12/27/17 09:00 01/01/18 09:46 (Santyl Oint) 1 applic BID TOPICAL 12/28/17 21:00 01/01/18 00:23 Dextrose 1,000 ml @ 30 mls/hr Q24H IV 12/29/17 16:00 12/30/17 15:28 Family History Noncontributory Social History History of smoking quit in 1963 Physical Exam Vital Signs Vital Signs Date Time Temp Pulse Resp B/P (MAP) Pulse Ox O2 Delivery O2 Flow Rate FiO2 01/01/18 08:00 97.7 82 16 138/99 (112) 95 01/01/18 04:20 97.8 77 18 147/81 (103) 98 01/01/18 04:05 78 01/01/18 00:35 97.9 81 17 127/95 (106) 95 01/01/18 00:01 80 12/31/17 22:30 Room Air 12/31/17 20:40 97.3 67 17 122/93 (103) 95 12/31/17 20:01 83 12/31/17 16:00 97.7 81 18 118/84 (95) 97 12/31/17 16:00 96 Physical Exam GENERAL: Well-nourished, well-developed patient. SKIN: Warm and dry. HEAD: Normocephalic. EYES: No scleral icterus. No injection or drainage. NECK: Supple, trachea midline. No JVD or lymphadenopathy. CARDIOVASCULAR: Irregularly irregular without murmurs, gallops, or rubs. RESPIRATORY: Breath sounds equal bilaterally. No accessory muscle use. GASTROINTESTINAL: Abdomen soft, non-tender, nondistended. EXTREMITIES: No cyanosis, or edema. Right second toe has skin necrosis, ulceration on left foot does NEUROLOGICAL: Awake, alert, and oriented x 3. Non-focal. Laboratory Laboratory Tests Test 01/01/18 11:39 Blood Urea Nitrogen 34 Creatinine 1.71 Random Glucose 97 Calcium Level 8.3 Sodium Level 138 Potassium Level 4.5 Chloride Level 100 Carbon Dioxide Level 30.2 Anion Gap 8 Estimat Glomerular Filtration Rate 47 Result Diagram: 12/31/17 0756 01/01/18 1139 Imaging Last Impressions Renal Ultrasound 12/30/17 0000 Signed Impressions: Service Date/Time: Saturday, December 30, 2017 15:46 - CONCLUSION: 1. Diffuse urinary bladder wall thickening. 2. 1.2 cm left mid pole renal cyst. 3. Unremarkable right kidney. Isaiah Jackson MD Foot X-Ray 12/30/17 0000 Signed Impressions: Service Date/Time: Saturday, December 30, 2017 14:43 - CONCLUSION: Soft tissue swelling and scattered degenerative changes. Shaq Diaz MD Head CT 12/28/17 0600 Signed Impressions: Service Date/Time: Thursday, December 28, 2017 05:22 - CONCLUSION: Extra axial hemorrhage over the left frontal and parietal lobes likely related to subdural hemorrhage. A parietal component is definite a subdural hemorrhage. The left frontal component has a more elliptical shape raising the possibility of a possible mild epidural hemorrhage versus a subdural hemorrhage in this region. No fracture is seen. There is 4 mm of left to right midline shift. Osman Arreguin MD Assessment and Plan Problem List: (1) CKD (chronic kidney disease) stage 3, GFR 30-59 ml/min ICD Codes: N18.3 - Chronic kidney disease, stage 3 (moderate) Plan: Patient appears to have improved kidney function with creatinine declined from 2.24-1.71 he states that this is around his baseline Follows with Dr. 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 Right hand pain could be due to IV on that site continue to observe for improvement as IV is taken out (2) Subdural hemorrhage ICD Codes: I62.00 - Nontraumatic subdural hemorrhage, unspecified Status: Acute Plan: Conservative approach (3) Cardiomyopathy ICD Codes: I42.9 - Cardiomyopathy, unspecified Status: Chronic Plan: Continue to monitor (4) Atrial fibrillation ICD Codes: I48.91 - Unspecified atrial fibrillation Plan: Cardiology is following Problem Qualifiers (1) Atrial fibrillation: Qualified Codes: I48.2 - Chronic atrial fibrillation Marisol Mendosa MD Jan 01, 2018 15:53
[2018-01-01] MEDS: predniSONE 20 MG TAB PO SCH (15:59)
[2018-01-01] MEDS: traMADol HCL 50 MG TAB PO PRN ×2 (15:59→21:22)
--- NOTE | 2018-01-01 19:28 | PD.CARD.PN ---
Subjective Subjective Remarks Up to the chair, doing well Walking with physical therapy Objective Medications Current Medications Medications (Trade) Dose Ordered Sig/Daniel Route Start Time Stop Time Status Last Admin (NS Flush) 2 ml UNSCH PRN IV FLUSH 12/27/17 04:15 (NS Flush) 2 ml BID IV FLUSH 12/27/17 09:00 12/31/17 21:11 (Tylenol) 650 mg Q6H PRN PO 12/27/17 04:15 Miscellaneous Information 1 Q361D XX 12/27/17 04:15 12/27/17 04:15 (Chlorhexidine 2% Cloth) 3 pack Taper DAILY@04 TOP 12/28/17 04:00 12/24/18 03:59 (Chlorhexidine 2% Cloth) 3 pack UNSCH PRN TOP 12/27/17 04:15 (Milk Of Magnesia Liq) 30 ml Q12H PRN PO 12/27/17 04:15 12/29/17 17:44 (Senokot) 17.2 mg Q12H PRN PO 12/27/17 04:15 (Dulcolax Supp) 10 mg DAILY PRN RECTAL 12/27/17 04:15 (Lactulose Liq) 30 ml DAILY PRN PO 12/27/17 04:15 12/29/17 17:44 (Microzide) 12.5 mg DAILY PO 12/27/17 09:00 01/01/18 09:46 (Lopressor) 50 mg BID PO 12/27/17 09:00 01/01/18 09:46 (KCl) 20 meq Q12HR PO 12/27/17 09:00 01/01/18 09:46 (Flomax) 0.4 mg DAILY PO 12/27/17 09:00 01/01/18 09:46 (Ultram) 50 mg Q4H PRN PO 12/27/17 07:30 01/01/18 15:59 (Lasix) 40 mg BID@ PO 12/27/17 09:00 01/01/18 18:53 (D50w (Vial) Inj) 50 ml UNSCH PRN IV PUSH 12/27/17 08:00 12/28/17 04:20 (Glucagon Inj) 1 mg UNSCH PRN OTHER 12/27/17 08:00 (Keppra) 500 mg Q12HR PO 12/27/17 09:00 01/01/18 09:46 (Santyl Oint) 1 applic BID TOPICAL 12/28/17 21:00 01/01/18 18:53 Dextrose 1,000 ml @ 30 mls/hr Q24H IV 12/29/17 16:00 12/30/17 15:28 (Deltasone) 40 mg DAILY PO 01/01/18 15:45 01/01/18 15:59 Vital Signs / I&O Vital Signs Date Time Temp Pulse Resp B/P (MAP) Pulse Ox O2 Delivery O2 Flow Rate FiO2 01/01/18 16:00 97.2 80 16 120/80 (93) 92 01/01/18 12:00 97.6 50 16 146/94 (111) 94 01/01/18 08:00 97.7 82 16 138/99 (112) 95 01/01/18 04:20 97.8 77 18 147/81 (103) 98 01/01/18 04:05 78 01/01/18 00:35 97.9 81 17 127/95 (106) 95 01/01/18 00:01 80 12/31/17 22:30 Room Air 12/31/17 20:40 97.3 67 17 122/93 (103) 95 12/31/17 20:01 83 I/O 12/31/17 12/31/17 12/31/17 01/01/18 01/01/18 01/01/18 07:00 15:00 23:00 07:00 15:00 23:00 Intake Total 240 ml Output Total 1000 ml Balance -760 ml Intake Oral 240 ml Output Urine Total 1000 ml # Voids 2 1 8 # Bowel Movements 0 0 1 Physical Exam GENERAL: NAD SKIN: Warm and dry. HEAD: Atraumatic. Normocephalic. EYES: Pupils equal and round. No scleral icterus. No injection or drainage. ENT: No nasal bleeding or discharge. Mucous membranes pink and moist. NECK: Trachea midline. No JVD. CARDIOVASCULAR: Irregularly irregular RESPIRATORY: No accessory muscle use. Clear to auscultation. Breath sounds equal bilaterally. GASTROINTESTINAL: Abdomen soft, non-tender, nondistended. Hepatic and splenic margins not palpable. MUSCULOSKELETAL: Extremities without clubbing, cyanosis, or edema. No obvious deformities. NEUROLOGICAL: No focal deficits noted Laboratory Laboratory Tests Test 01/01/18 11:39 Blood Urea Nitrogen 34 MG/DL Creatinine 1.71 MG/DL Random Glucose 97 MG/DL Calcium Level 8.3 MG/DL Sodium Level 138 MEQ/L Potassium Level 4.5 MEQ/L Chloride Level 100 MEQ/L Carbon Dioxide Level 30.2 MEQ/L Anion Gap 8 MEQ/L Estimat Glomerular Filtration Rate 47 ML/MIN Assessment and Plan Problem List: (1) Atrial fibrillation ICD Codes: I48.91 - Unspecified atrial fibrillation (2) Subdural hemorrhage ICD Codes: I62.00 - Nontraumatic subdural hemorrhage, unspecified Status: Acute (3) Cardiomyopathy ICD Codes: I42.9 - Cardiomyopathy, unspecified Status: Chronic (4) S/P ICD (internal cardiac defibrillator) procedure ICD Codes: Z95.810 - Presence of automatic (implantable) cardiac defibrillator Assessment and Plan 1) Baseline Afib Rhythm is mostly paced (not PVCs) with occasional [place] beats Question of wide complex tachycardia, which was Afib with aberrancy 2) Interrogation showing Afib Rare NSVT ~3seconds with last episode weeks ago Repeat interrogation (12/30/17) showing no alerts 3) No Syncope Patient denies Discussed with , its been "months" since his last fall 4) Subdural hemorrhage Secondary to Xarelto Xarelto stopped 5) Will see PRN, call with questions Follows with Dr. Lopez in [place] Problem Qualifiers (1) Atrial fibrillation: Qualified Codes: I48.2 - Chronic atrial fibrillation Christiano Robledo DO Jan 01, 2018 19:28
[2018-01-01] MEDS: DEXTROSE 10% INJ 1,000 ML IV SCH ×2 (21:22→21:24)
--- NOTE | 2018-01-01 23:11 | RADRPT ---
EXAM DATE/TIME: 01/01/2018 21:22 [facility] COMPARISON: No previous studies available for comparison. INDICATIONS : Right arm swelling. MEDICAL HISTORY : Hypertension. Renal cell carcinoma. Congestive heart failure. Hyperlipidemia. Cardiomyopathy. Afib. S leep apnea. Arthritis. Osteoporosis. Diabetes. Anxiety. SURGICAL HISTORY : Pacemaker. Toe surgery. ENCOUNTER: Initial ACUITY: 4 - 6 days PAIN SCORE: 2/10 LOCATION: Right arm. FINDINGS: There is spontaneous flow documented in the brachial, basilic, cephalic, axillary, and subclavian vei ns. The vessels are compressible and augmentation response is documented. No filling defects are se en. The flow is phasic with respiration. Direction of flow in the jugular vein is caudal. CONCLUSION: Normal examination. Rommel Feldman MD on January 01, 2018 at 23:09 Board Certified Radiologist. This report was verified electronically.
[2018-01-02] VITALS (10 sets, daily range): BP systolic 108–143; BP diastolic 73–104; PULSE 56–96; RESP 18–20; TEMP 97.4–98.3; O2SAT 92–100
[2018-01-02] MEDS: CHLORHEXIDINE GLUCONATE 2 % 1 PACK (2 CLOTHS) TOP SCH (01:52)
[2018-01-02 08:45] LABS: BICARBONATE 29.7 MEQ/L (21.0-32.0); CALCIUM 8.6 MG/DL (8.5-10.1); CREATININE 1.93 MG/DL (0.60-1.30)
[2018-01-02] MEDS: predniSONE 20 MG TAB PO SCH (09:08)
[2018-01-02] MEDS: SODIUM CHLORIDE 0.9% FLUSH 10 ML FLUSH IV FLUSH SCH ×2 (09:09→22:20)
[2018-01-02] MEDS: levETIRAcetam 500 MG TAB PO SCH ×2 (09:09→22:20)
[2018-01-02] MEDS: TAMSULOSIN HCL 0.4 MG CAP PO SCH (09:09)
[2018-01-02] MEDS: FUROSEMIDE 40 MG TAB PO SCH ×2 (09:09→17:56)
[2018-01-02] MEDS: METOPROLOL TARTRATE 50 MG TAB PO SCH ×2 (09:09→22:19)
[2018-01-02] MEDS: HYDROCHLOROTHIAZIDE 12.5 MG CAP PO SCH (09:09)
[2018-01-02] MEDS: POTASSIUM CHLORIDE 20 MEQ CONTROLLED RELEASE TAB PO SCH ×2 (09:09→22:20)
[2018-01-02] MEDS: COLLAGENASE OINT 30 GM TUBE TOPICAL SCH ×2 (09:10→23:00)
--- NOTE | 2018-01-02 14:17 | HHI.PR ---
Subjective Remarks Had a discussion with the patient and his No acute issues overnight Patient seen by renal Objective Vitals Vital Signs Date Time Temp Pulse Resp B/P (MAP) Pulse Ox O2 Delivery O2 Flow Rate FiO2 01/02/18 11:19 97.6 80 20 115/74 (88) 96 01/02/18 09:18 97.4 86 20 143/104 (117) 92 01/02/18 08:30 Nasal Cannula 2.00 01/02/18 08:04 79 01/02/18 04:00 98.1 78 18 124/73 (90) 97 01/02/18 00:00 97.8 56 18 127/74 (91) 93 01/01/18 23:51 79 01/01/18 22:15 80 01/01/18 22:15 81 01/01/18 21:26 95 01/01/18 21:17 96 01/01/18 21:10 Nasal Cannula 2.00 01/01/18 20:40 97 01/01/18 20:35 96 01/01/18 20:00 97.6 52 18 130/75 (93) 92 01/01/18 19:59 96 01/01/18 19:50 96 01/01/18 16:00 97.2 80 16 120/80 (93) 92 I/O 01/01/18 01/01/18 01/01/18 01/02/18 01/02/18 01/02/18 07:00 15:00 23:00 07:00 15:00 23:00 Intake Total 240 ml 256 ml Output Total 1000 ml 250 ml 150 ml Balance -760 ml -250 ml 256 ml -150 ml Intake Oral 240 ml IV Total 256 ml Output Urine Total 1000 ml 250 ml 150 ml Result Diagram: 12/31/17 0756 01/02/18 0800 Objective Remarks GENERAL: This is a well-nourished, well-developed patient, in no apparent distress. SKIN: No rashes, warm and dry HEAD: Atraumatic. Normocephalic. EYES: Pupils equal round and reactive. Extraocular motions intact. No scleral icterus. ENT: Nose without bleeding, or drainage, Airway patent. NECK: Trachea midline. Supple CARDIOVASCULAR: Regular rate and rhythm without murmurs, gallops, or rubs. RESPIRATORY: Fair air entry bilaterally. No wheezes, rales, or rhonchi. GASTROINTESTINAL: Abdomen soft, non-tender, nondistended. Positive bowel sounds MUSCULOSKELETAL: Extremities without clubbing, cyanosis, or edema. Pedal pulses appreciated, bilateral feet in gauze due to wound NEUROLOGICAL: Awake and alert. Moves all extremity. Normal speech.no focal neurological deficit A/P Assessment and Plan 01/01: Still on D10, we discussed his poor oral intake will add in sure and will switch him to regular diet for now Also earlier discussed with ID regarding his lower extremity we'll consult [facility] Will consult nephrology for renal failure Today he complain of swelling in his right hands mostly in the middle finger denied any history of gout in the past 2/2: Right upper extremity ultrasound negative for DVT, arterial study within normal limits, awaiting vascular surgery recommendation, For hypoglycemia continue dextrose, BG around 100 and below on D10, encourage oral intake and ensure 82 years old male Left-sided subdural hematoma - patient doing well- neurologically neuro check stable Xarelto DC Coagulopathy - received Kcentra. Xarelto DC Recurrent hypoglycemia - ff blood sugars- good readings- on D 10 consider DC D 10 in am good po- regular diet get hemoglobin A1C H/o Afib S/P PM Cardiomyopathy- not in clinical failure Cardiology ff:1) Baseline Afib, Rhythm is mostly paced (not PVCs) with occasional [place] beats Question of wide complex tachycardia, appears to be Afib with aberrancy 2) Interrogation showing Afib Rare NSVT ~3seconds with last episode weeks ago Repeat interrogation (12/30/17) showing no alerts 3) No Syncope Patient denies continue on Lasix 40 mg bid, HCTZ 12.5 mg daily. Lopressor 50 mg bid, KCL ff lytes Bilateral foot /toes ulcers looks ischemic with cold claimed consult Podiatry - patient states he ff with a Podiatry as OP- Dr. Diaz seen by ID- no antibiotics for now Arterial Doppler ordered DALI 1 consulted [facility] appreciate input , ff outpt [facility]- likely with underlying CKI Consult nephrology creatinine gradually trending down. good po ff BMP. Renal/Bladder ultrasound showing bladder wall thickening will need follow up with urology as an outpatient Right middle finger swelling rule out gout Check SANJEEV, uric acid level can be helpful 2 weeks after the acute episode Will avoid colchicine or NSAIDs due to kidney failure, will start prednisone 40 mg daily and monitor Discharge Planning Patient with acute renal failure, still not at baseline yet Also still on D10 for hypoglycemia Kareem Sheridan MD Jan 02, 2018 14:17
--- NOTE | 2018-01-02 15:29 | HHI.NPPN ---
Subjective History of Present Illness 82 year old with subdural hematoma CKD HTN Review of Systems General Constitutional: Fatigue Objective Data Data 01/02/18 01/03/18 19:00 07:00 Output Total 150 ml Balance -150 ml Output Urine Total 150 ml Vital Signs Date Time Temp Pulse Resp B/P (MAP) Pulse Ox O2 Delivery O2 Flow Rate FiO2 01/02/18 11:19 97.6 80 20 115/74 (88) 96 01/02/18 09:18 97.4 86 20 143/104 (117) 92 01/02/18 08:30 Nasal Cannula 2.00 01/02/18 08:04 79 01/02/18 04:00 98.1 78 18 124/73 (90) 97 01/02/18 00:00 97.8 56 18 127/74 (91) 93 01/01/18 23:51 79 01/01/18 22:15 80 01/01/18 22:15 81 01/01/18 21:26 95 01/01/18 21:17 96 01/01/18 21:10 Nasal Cannula 2.00 01/01/18 20:40 97 01/01/18 20:35 96 01/01/18 20:00 97.6 52 18 130/75 (93) 92 01/01/18 19:59 96 01/01/18 19:50 96 01/01/18 16:00 97.2 80 16 120/80 (93) 92 -: 12/31/17 0756 01/02/18 0800 Physical Exam General Appearance: Well Developed, Well Nourished Neck Neck Exam: Neck Supple Pulmonary Resp Exam: Clear Bilaterally Cardiology CV Exam: Regular, Normal Sinus Rhythm Gastrointestinal/Abdomen GI Exam: Soft, Non-Tender, Bowel Sounds Present Extremeties Extremities Exam: Trace Edema Assessment/Plan Problem List: (1) CKD (chronic kidney disease) stage 3, GFR 30-59 ml/min ICD Codes: N18.3 - Chronic kidney disease, stage 3 (moderate) Plan: Patient is taking 2 diuretics will stop HCTZ Cr 1.[address] Newman who has a block layer He is being treated with Lasix and HCTZ I encouraged him to drink enough water of 32 ounces a day Avoid nephrotoxins Avoid dye studies or gadolinium studies Follow-up BMP. Right hand pain /GOUT Order Uric acid started on Prednisone (2) Subdural hemorrhage ICD Codes: I62.00 - Nontraumatic subdural hemorrhage, unspecified Status: Acute Plan: Conservative approach (3) Cardiomyopathy ICD Codes: I42.9 - Cardiomyopathy, unspecified Status: Chronic Plan: Continue to monitor (4) Atrial fibrillation ICD Codes: I48.91 - Unspecified atrial fibrillation Plan: Cardiology is following Problem Qualifiers (1) Atrial fibrillation: Qualified Codes: I48.2 - Chronic atrial fibrillation Marisol Mendosa MD Jan 02, 2018 15:29
[2018-01-02] MEDS: DEXTROSE 10% INJ 1,000 ML IV SCH (16:00)
--- NOTE | 2018-01-02 22:09 | RADRPT ---
EXAM DATE/TIME: 01/02/2018 20:59 [facility] COMPARISON: No previous studies available for comparison. INDICATIONS : Right hand pain, swelling for 3 days with no known injury MEDICAL HISTORY : None. SURGICAL HISTORY : None. ENCOUNTER: Initial ACUITY: 3 days PAIN SCORE: 5/10 LOCATION: Right entire hand FINDINGS: Joint space narrowing is noted involving the interphalangeal joints and the first carpometacarpal inocente nt suggestive of osteoarthritis. Clinical correlation is recommended. Bone mineralization is maintain ed. There is no acute fracture or dislocation. CONCLUSION: 1. No acute fracture or dislocation. 2. Joint space narrowing involving the interphalangeal joints and first carpometacarpal joint suggest eddie of osteoarthritis. Clinical correlation is recommended. Isaiah Jackson MD on January 02, 2018 at 22:05 Board Certified Radiologist. This report was verified electronically.
[2018-01-03] VITALS (9 sets, daily range): BP systolic 105–127; BP diastolic 74–92; PULSE 65–94; RESP 18; TEMP 97.5–98.1; O2SAT 93–100
[2018-01-03] MEDS: CHLORHEXIDINE GLUCONATE 2 % 1 PACK (2 CLOTHS) TOP SCH (04:00)
[2018-01-03 07:30] LABS: BICARBONATE 32.8 MEQ/L (21.0-32.0); CALCIUM 8.1 MG/DL (8.5-10.1); CREATININE 1.95 MG/DL (0.60-1.30)
[2018-01-03] MEDS: TAMSULOSIN HCL 0.4 MG CAP PO SCH (09:21)
[2018-01-03] MEDS: predniSONE 20 MG TAB PO SCH (09:21)
[2018-01-03] MEDS: FUROSEMIDE 40 MG TAB PO SCH ×2 (09:21→17:49)
[2018-01-03] MEDS: SODIUM CHLORIDE 0.9% FLUSH 10 ML FLUSH IV FLUSH SCH ×2 (09:22→21:20)
[2018-01-03] MEDS: POTASSIUM CHLORIDE 20 MEQ CONTROLLED RELEASE TAB PO SCH ×2 (09:22→21:20)
[2018-01-03] MEDS: levETIRAcetam 500 MG TAB PO SCH ×2 (09:22→21:20)
[2018-01-03] MEDS: METOPROLOL TARTRATE 50 MG TAB PO SCH ×2 (09:22→21:20)
[2018-01-03] MEDS: COLLAGENASE OINT 30 GM TUBE TOPICAL SCH (09:23)
[2018-01-03] MEDS ORDERED: LEVE500 PO (12:07)
[2018-01-03] MEDS ORDERED: PRED20 PO (12:07)
[2018-01-03] MEDS: DEXTROSE 10% INJ 1,000 ML IV SCH (16:00)
--- NOTE | 2018-01-03 18:07 | HHI.PR ---
Subjective Remarks Patient stated he feels better in his right hand, no other acute issue vascular surgeon cleared patient for discharge as well as renal whom I i D/W Objective Vitals Vital Signs Date Time Temp Pulse Resp B/P (MAP) Pulse Ox O2 Delivery O2 Flow Rate FiO2 01/03/18 16:00 97.8 81 18 111/76 (88) 97 01/03/18 12:00 97.8 80 18 105/79 (88) 94 01/03/18 09:20 Room Air 01/03/18 08:00 98.1 86 18 124/92 (103) 95 01/03/18 04:38 81 01/03/18 04:00 97.8 80 18 105/74 (84) 93 01/03/18 01:00 80 01/03/18 00:00 98.1 94 18 127/82 (97) 100 01/02/18 22:25 Nasal Cannula 2.00 01/02/18 22:25 80 01/02/18 22:20 80 01/02/18 20:00 98.3 96 18 122/87 (99) 100 I/O 01/02/18 01/02/18 01/02/18 01/03/18 01/03/18 01/03/18 07:00 15:00 23:00 07:00 15:00 23:00 Intake Total 256 ml 720 ml 360 ml Output Total 150 ml Balance 256 ml 570 ml 360 ml Intake Oral 720 ml IV Total 256 ml 360 ml Output Urine Total 150 ml # Voids 3 3 2 # Bowel Movements 1 0 Result Diagram: 12/31/17 0756 01/03/18 0621 Objective Remarks GENERAL: This is a well-nourished, well-developed patient, in no apparent distress. SKIN: No rashes, warm and dry HEAD: Atraumatic. Normocephalic. EYES: Pupils equal round and reactive. Extraocular motions intact. No scleral icterus. ENT: Nose without bleeding, or drainage, Airway patent. NECK: Trachea midline. Supple CARDIOVASCULAR: Regular rate and rhythm without murmurs, gallops, or rubs. RESPIRATORY: Fair air entry bilaterally. No wheezes, rales, or rhonchi. GASTROINTESTINAL: Abdomen soft, non-tender, nondistended. Positive bowel sounds MUSCULOSKELETAL: Extremities without clubbing, cyanosis, or edema. Pedal pulses appreciated, bilateral feet in gauze due to wound NEUROLOGICAL: Awake and alert. Moves all extremity. Normal speech.no focal neurological deficit A/P Assessment and Plan 2: Still on D10, we discussed his poor oral intake will add in sure and will switch him to regular diet for now Also earlier discussed with ID regarding his lower extremity we'll consult [facility] Will consult nephrology for renal failure Today he complain of swelling in his right hands mostly in the middle finger denied any history of gout in the past 2/2: Right upper extremity ultrasound negative for DVT, arterial study within normal limits, awaiting vascular surgery recommendation, For hypoglycemia continue dextrose, BG around 100 and below on D10, encourage oral intake and ensure 2/3: Discussed with the renal cleared patient for discharge, also cleared by vascular surgery, noticed increased uric acid mostly gouty episode in the right hand continue prednisone follow with PCP as an outpatient 82 years old male Left-sided subdural hematoma - patient doing well- neurologically neuro check stable Xarelto DC Coagulopathy - received Kcentra. Xarelto DC Recurrent hypoglycemia - ff blood sugars- good readings- on D 10 consider DC D 10 in am good po- regular diet get hemoglobin A1C H/o Afib S/P PM Cardiomyopathy- not in clinical failure Cardiology ff:1) Baseline Afib, Rhythm is mostly paced (not PVCs) with occasional [place] beats Question of wide complex tachycardia, appears to be Afib with aberrancy 2) Interrogation showing Afib Rare NSVT ~3seconds with last episode weeks ago Repeat interrogation (12/30/17) showing no alerts 3) No Syncope Patient denies continue on Lasix 40 mg bid, HCTZ 12.5 mg daily. Lopressor 50 mg bid, KCL ff lytes Bilateral foot /toes ulcers looks ischemic with cold claimed consult Podiatry - patient states he ff with a Podiatry as OP- Dr. Diaz seen by ID- no antibiotics for now Arterial Doppler ordered DALI 1 consulted [facility] appreciate input , ff outpt [facility]IKA- likely with underlying CKI Consult nephrology creatinine gradually trending down. good po ff BMP. Renal/Bladder ultrasound showing bladder wall thickening will need follow up with urology as an outpatient Right middle finger swelling rule out gout Check SANJEEV, uric acid level can be helpful 2 weeks after the acute episode Will avoid colchicine or NSAIDs due to kidney failure, will start prednisone 40 mg daily and monitor Discharge Planning [facility] today Kareem Sheridan MD Jan 03, 2018 18:07
--- NOTE | 2018-01-03 18:44 | HHI.DS ---
Discharge Summary Admission Date Dec 27, 2017 at 03:55 Admitting Diagnosis Left Subdural Hematoma (1) Gout attack ICD Code: M10.9 - Gout, unspecified (2) Hypoglycemia ICD Code: E16.2 - Hypoglycemia, unspecified (3) Atrial fibrillation ICD Code: I48.91 - Unspecified atrial fibrillation (4) Subdural hemorrhage ICD Code: I62.00 - Nontraumatic subdural hemorrhage, unspecified Status: Acute (5) PAD (peripheral artery disease) ICD Code: I73.9 - Peripheral vascular disease, unspecified (6) Leg pain, bilateral ICD Code: M79.604 - Pain in right leg; M79.605 - Pain in left leg (7) Cardiomyopathy ICD Code: I42.9 - Cardiomyopathy, unspecified Status: Chronic (8) CKD (chronic kidney disease) stage 3, GFR 30-59 ml/min ICD Code: N18.3 - Chronic kidney disease, stage 3 (moderate) Procedures See below Brief History - From Admission HPI 82 male transferred from [facility] due to a subdural hematoma on the left of mixed attenuation up to 10 mm in maximal width. He reports that at the point of wound care of his feet he developed some weakness in the hands when he was holding a flashlight. No loss of consciousness reported. The patient takes Xarelto for atrial fibrillation. Patient underwent ICD/pacemaker placement by Dr. He in late 2017. Onset sudden. He has had no weakness or neurologic complaints since. He denies trauma that he can remember. Patient was transferred from [facility] after being accepted by Dr. Brown from neurosurgery as his head CT showed left sided subdural hematoma of mixed attenuation (10 mm). He is being admitted to the critical care medicine service. I evaluated the patient following his arrival to the ICU. At that time he was resting comfortably and denied any headache, chest pain, palpitations, dizziness, nausea or any visual disturbance. He and his said that he was back in his normal state without any weakness. 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 He is prediabetic. Of note patient received Keppra 1 g IV, Kcentra 2500 units IV, aspirin 324 mg at [facility]. His ICD was interrogated per family however results not available to me at this time, will follow-up. History PFSH Past Medical History Cancer: Yes (KIDNEY) Chest Pain: No Diabetes: No (Pre-diabetic) Gastrointestinal Disorders: Yes (KIDNEY CA) Glaucoma: No Hepatitis: No Hiatal Hernia: No Hypertension: Yes Integumentary: No Thyroid Disease: No Atrial fibrillation, ablation/ICD placement for arrhythmia that at [facility] in late 2016, cardiomyopathy, renal cancer status post cryoablation, BPH, sleep apnea, IBD Social History Tobacco Use: Yes (FORMER) Allergies-Medications Allergies-Medications (Allergen,Severity, Reaction): Coded Allergies: No Known Allergies (Unverified , 09/14/13) Reported Meds & Prescriptions Reported Meds & Active Scripts Active Keflex (Cephalexin) 500 Mg Cap 500 Mg PO Q8H Reported Xarelto (Rivaroxaban) 15 Mg Tab 15 Mg PO DAILY Tamsulosin (Tamsulosin HCl) 0.4 Mg Cap 0.4 Mg PO DAILY Metoprolol Tartrate 50 Mg Tab 50 Mg PO BID Lisinopril 40 Mg Tab 40 Mg PO BID Klor-Con M20 (Potassium Chloride Microencaps) 20 Meq Tab 20 Meq PO Q12HR Furosemide 40 Mg Tab 40 Mg PO BID ROS Review of Systems Except as stated in HPI: all other systems reviewed are Neg General / Constitutional: No: Fever CBC/BMP: 12/31/17 0756 01/03/18 0621 Significant Findings Laboratory Tests Test 01/01/18 11:39 01/01/18 20:27 01/02/18 08:00 01/03/18 06:21 Blood Urea Nitrogen 34 MG/DL (7-18) 36 MG/DL (7-18) 36 MG/DL (7-18) Creatinine 1.71 MG/DL (0.60-1.30) 1.93 MG/DL (0.60-1.30) 1.95 MG/DL (0.60-1.30) Calcium Level 8.3 MG/DL (8.5-10.1) 8.1 MG/DL (8.5-10.1) Estimat Glomerular Filtration Rate 47 ML/MIN (>89) 40 ML/MIN (>89) 40 ML/MIN (>89) C-Reactive Protein 6.30 MG/DL (0.00-0.30) Random Glucose 117 MG/DL (74-106) Sodium Level 135 MEQ/L (136-145) Uric Acid 13.7 MG/DL (2.6-7.2) 13.8 MG/DL (2.6-7.2) Chloride Level 96 MEQ/L (98-107) Carbon Dioxide Level 32.8 MEQ/L (21.0-32.0) PE at Discharge GENERAL: This is a well-nourished, well-developed patient, in no apparent distress. SKIN: No rashes, warm and dry HEAD: Atraumatic. Normocephalic. EYES: Pupils equal round and reactive. Extraocular motions intact. No scleral icterus. ENT: Nose without bleeding, or drainage, Airway patent. NECK: Trachea midline. Supple CARDIOVASCULAR: Regular rate and rhythm without murmurs, gallops, or rubs. RESPIRATORY: Fair air entry bilaterally. No wheezes, rales, or rhonchi. GASTROINTESTINAL: Abdomen soft, non-tender, nondistended. Positive bowel sounds MUSCULOSKELETAL: Extremities without clubbing, cyanosis, or edema. Pedal pulses appreciated, bilateral feet in gauze due to wound NEUROLOGICAL: Awake and alert. Moves all extremity. Normal speech.no focal neurological deficit Hospital Course 82 years old male Left-sided subdural hematoma - patient doing well- neurologically neuro check stable Xarelto DC Coagulopathy - received Kcentra. Xarelto DC Recurrent hypoglycemia - ff blood sugars- good readings- on D 10 consider DC D 10 in am good po- regular diet get hemoglobin A1C H/o Afib S/P PM Cardiomyopathy- not in clinical failure Cardiology ff:1) Baseline Afib, Rhythm is mostly paced (not PVCs) with occasional [place] point beats Question of wide complex tachycardia, appears to be Afib with aberrancy 2) Interrogation showing Afib Rare NSVT ~3seconds with last episode weeks ago Repeat interrogation (12/30/17) showing no alerts 3) No Syncope Patient denies continue on Lasix 40 mg bid, HCTZ 12.5 mg daily. Lopressor 50 mg bid, KCL ff lytes Bilateral foot /toes ulcers looks ischemic with cold claimed consult Podiatry - patient states he ff with a Podiatry as OP- Dr. Diaz seen by ID- no antibiotics for now Arterial Doppler ordered DALI 1 [facility] appreciate input , ff outpt MALLIKA- likely with underlying CKI Consulted nephrology creatinine gradually trending down. good po ff BMP. Renal/Bladder ultrasound showing bladder wall thickening will need follow up with urology as an outpatient Right middle finger swelling rule out gout Negative SANJEEV, uric acid 13 We avoided colchicine or NSAIDs due to kidney failure, will start prednisone 40 mg daily and monitor Pt Condition on Discharge: Fair Discharge Disposition: Discharge to SNF Discharge Time: > 30 minutes Discharge Instructions DIET: Follow Instructions for: Heart Healthy Diet, Diabetic Diet, Renal Failure Diet Activities you can perform: See Additionl Instruction Other Activity Instructions: per PT Follow up Referrals: Nephrology - 10 Days with Marisol Mendosa MD Neurosurgery @ Neurosurgical - Dr Brown with Robinson Brown MD Podiatry - 10 Days with Britt Chang DPM Vascular Surgery - 10 Days with Isaiah Andres MD New Medications: Levetiracetam (Keppra) 500 Mg Tab 500 MG PO Q12HR for proph, #60 TAB Prednisone (Prednisone) 20 Mg Tab 40 MG PO DAILY for gout, #10 TAB Continued Medications: Furosemide (Furosemide) 40 Mg Tab 40 MG PO BID, #60 TAB 0 Refills Lisinopril (Lisinopril) 40 Mg Tab 20 MG PO BID for Blood Pressure Management, #30 TAB 0 Refills Metoprolol Tartrate (Metoprolol Tartrate) 50 Mg Tab 50 MG PO BID, #60 TAB 0 Refills Potassium Chloride Microencaps (Klor-Con M20) 20 Meq Tab 20 MEQ PO Q12HR for Electrolyte Replacement, #60 TAB 0 Refills Tamsulosin (Tamsulosin) 0.4 Mg Cap 0.4 MG PO DAILY for Manage Prostate Problems, #30 CAP 0 Refills Tramadol (Tramadol) 50 Mg Tab 50 MG PO Q4H PRN for PAIN, TAB 0 Refills Kareem Sheridan MD Jan 03, 2018 6:44 pm Erick Valencia DO Jan 08, 2018 1:15 pm
[2018-01-04] VITALS (11 sets, daily range): BP systolic 116–134; BP diastolic 77–91; PULSE 71–80; RESP 17–20; TEMP 97.2–98.6; O2SAT 92–97
[2018-01-04] MEDS: COLLAGENASE OINT 30 GM TUBE TOPICAL SCH ×3 (00:31→20:20)
[2018-01-04] MEDS: CHLORHEXIDINE GLUCONATE 2 % 1 PACK (2 CLOTHS) TOP SCH (03:34)
[2018-01-04] MEDS: predniSONE 20 MG TAB PO SCH (08:51)
[2018-01-04] MEDS: TAMSULOSIN HCL 0.4 MG CAP PO SCH (08:51)
[2018-01-04] MEDS: SODIUM CHLORIDE 0.9% FLUSH 10 ML FLUSH IV FLUSH SCH ×2 (08:51→20:20)
[2018-01-04] MEDS: FUROSEMIDE 40 MG TAB PO SCH ×2 (08:51→16:59)
[2018-01-04] MEDS: METOPROLOL TARTRATE 50 MG TAB PO SCH ×2 (08:51→20:19)
[2018-01-04] MEDS: levETIRAcetam 500 MG TAB PO SCH ×2 (08:52→20:19)
[2018-01-04] MEDS: POTASSIUM CHLORIDE 20 MEQ CONTROLLED RELEASE TAB PO SCH ×2 (08:52→20:19)
--- NOTE | 2018-01-04 12:03 | HHI.PR ---
Subjective Remarks Patient sitting on the chair awake alert Denied complain Awaiting authorization to transfer to [facility] Objective Vitals Vital Signs Date Time Temp Pulse Resp B/P (MAP) Pulse Ox O2 Delivery O2 Flow Rate FiO2 01/04/18 09:58 79 01/04/18 07:59 97.2 80 20 116/82 (93) 92 01/04/18 04:50 98.3 72 17 123/87 (99) 97 01/04/18 04:30 79 01/04/18 00:30 80 01/04/18 00:22 97.6 78 17 134/91 (105) 97 01/03/18 23:15 Room Air 01/03/18 20:34 97.5 82 18 124/88 (100) 97 01/03/18 20:30 65 01/03/18 16:00 97.8 81 18 111/76 (88) 97 I/O 01/03/18 01/03/18 01/03/18 01/04/18 01/04/18 01/04/18 06:59 14:59 22:59 06:59 14:59 22:59 Intake Total 240 ml Balance 240 ml Intake Oral 240 ml # Voids 3 2 3 # Bowel Movements 0 Result Diagram: 12/31/17 0756 01/03/18 0621 Objective Remarks GENERAL: This is a well-nourished, well-developed patient, in no apparent distress. SKIN: No rashes, warm and dry HEAD: Atraumatic. Normocephalic. EYES: Pupils equal round and reactive. Extraocular motions intact. No scleral icterus. ENT: Nose without bleeding, or drainage, Airway patent. NECK: Trachea midline. Supple CARDIOVASCULAR: Regular rate and rhythm without murmurs, gallops, or rubs. RESPIRATORY: Fair air entry bilaterally. No wheezes, rales, or rhonchi. GASTROINTESTINAL: Abdomen soft, non-tender, nondistended. Positive bowel sounds MUSCULOSKELETAL: Extremities without clubbing, cyanosis, or edema. Pedal pulses appreciated, bilateral feet in gauze due to wound NEUROLOGICAL: Awake and alert. Moves all extremity. Normal speech.no focal neurological deficit Procedures See below A/P Problem List: (1) Gout attack ICD Code: M10.9 - Gout, unspecified (2) Hypoglycemia ICD Code: E16.2 - Hypoglycemia, unspecified (3) Atrial fibrillation ICD Code: I48.91 - Unspecified atrial fibrillation (4) Subdural hemorrhage ICD Code: I62.00 - Nontraumatic subdural hemorrhage, unspecified Status: Acute (5) PAD (peripheral artery disease) ICD Code: I73.9 - Peripheral vascular disease, unspecified (6) Leg pain, bilateral ICD Code: M79.604 - Pain in right leg; M79.605 - Pain in left leg (7) Cardiomyopathy ICD Code: I42.9 - Cardiomyopathy, unspecified Status: Chronic (8) CKD (chronic kidney disease) stage 3, GFR 30-59 ml/min ICD Code: N18.3 - Chronic kidney disease, stage 3 (moderate) Assessment and Plan 2/: Still on D10, we discussed his poor oral intake will add in sure and will switch him to regular diet for now Also earlier discussed with ID regarding his lower extremity we'll consult [facility] Will consult nephrology for renal failure Today he complain of swelling in his right hands mostly in the middle finger denied any history of gout in the past 2/2: Right upper extremity ultrasound negative for DVT, arterial study within normal limits, awaiting vascular surgery recommendation, For hypoglycemia continue dextrose, BG around 100 and below on D10, encourage oral intake and ensure 2/3: Discussed with the renal cleared patient for discharge, also cleared by vascular surgery, noticed increased uric acid mostly gouty episode in the right hand continue prednisone follow with PCP as an outpatient 24: Stable ready for discharge to waiting for authorization 82 years old male Left-sided subdural hematoma - patient doing well- neurologically neuro check stable Xarelto DC Coagulopathy - received Kcentra. Xarelto DC Recurrent hypoglycemia - ff blood sugars- good readings- on D 10 consider DC D 10 in am good po- regular diet get hemoglobin A1C H/o Afib S/P PM Cardiomyopathy- not in clinical failure Cardiology ff:1) Baseline Afib, Rhythm is mostly paced (not PVCs) with occasional [place] beats Question of wide complex tachycardia, appears to be Afib with aberrancy 2) Interrogation showing Afib Rare NSVT ~3seconds with last episode weeks ago Repeat interrogation (12/30/17) showing no alerts 3) No Syncope Patient denies continue on Lasix 40 mg bid, HCTZ 12.5 mg daily. Lopressor 50 mg bid, KCL ff lytes Bilateral foot /toes ulcers looks ischemic with cold claimed consult Podiatry - patient states he ff with a Podiatry as OP- Dr. Diaz seen by ID- no antibiotics for now Arterial Doppler ordered DALI 1 consulted [facility] appreciate input , ff outpt MALLIKA- likely with underlying CKI Consult nephrology creatinine gradually trending down. good po ff BMP. Renal/Bladder ultrasound showing bladder wall thickening will need follow up with urology as an outpatient Right middle finger swelling rule out gout Check SANJEEV, uric acid level can be helpful 2 weeks after the acute episode Will avoid colchicine or NSAIDs due to kidney failure, will start prednisone 40 mg daily and monitor Discharge Planning SNF today Problem Qualifiers (1) Atrial fibrillation: Qualified Codes: I48.2 - Chronic atrial fibrillation Kareem Sheridan MD Jan 04, 2018 12:03
[2018-01-04] MEDS: DEXTROSE 10% INJ 1,000 ML IV SCH (14:41)
[2018-01-05] VITALS (9 sets, daily range): BP systolic 110–148; BP diastolic 75–94; PULSE 59–83; RESP 18; TEMP 97.2–97.9; O2SAT 92–98
[2018-01-05] MEDS: CHLORHEXIDINE GLUCONATE 2 % 1 PACK (2 CLOTHS) TOP SCH (04:00)
[2018-01-05] MEDS: levETIRAcetam 500 MG TAB PO SCH ×2 (08:50→21:47)
[2018-01-05] MEDS: METOPROLOL TARTRATE 50 MG TAB PO SCH ×2 (08:50→21:47)
[2018-01-05] MEDS: POTASSIUM CHLORIDE 20 MEQ CONTROLLED RELEASE TAB PO SCH ×2 (08:50→21:47)
[2018-01-05] MEDS: predniSONE 20 MG TAB PO SCH (08:51)
[2018-01-05] MEDS: MAGNESIUM HYDROXIDE SUSP 30 ML CUP PO PRN (08:52)
[2018-01-05] MEDS: FUROSEMIDE 40 MG TAB PO SCH ×2 (08:52→18:25)
[2018-01-05] MEDS: SODIUM CHLORIDE 0.9% FLUSH 10 ML FLUSH IV FLUSH SCH ×2 (08:52→21:00)
[2018-01-05] MEDS: TAMSULOSIN HCL 0.4 MG CAP PO SCH (08:52)
[2018-01-05] MEDS: COLLAGENASE OINT 30 GM TUBE TOPICAL SCH ×2 (09:00→21:50)
[2018-01-05] MEDS: DEXTROSE 10% INJ 1,000 ML IV SCH (09:45)
--- NOTE | 2018-01-05 15:49 | HHI.PR ---
Subjective Remarks Resting comfortably in bed No event overnight Denied chest and or short of breath No fever or chills Objective Vitals Vital Signs Date Time Temp Pulse Resp B/P (MAP) Pulse Ox O2 Delivery O2 Flow Rate FiO2 01/05/18 12:00 97.2 77 18 117/75 (89) 97 01/05/18 08:41 97.2 83 18 111/94 (100) 98 01/05/18 08:00 79 01/05/18 04:50 97.6 79 18 140/88 (105) 94 01/05/18 04:30 83 01/05/18 04:04 Room Air 01/05/18 00:40 97.4 80 18 148/86 (106) 92 01/05/18 00:30 80 01/04/18 22:30 Room Air 01/04/18 20:54 98.4 80 18 133/77 (95) 97 01/04/18 20:30 79 01/04/18 16:31 78 I/O 01/04/18 01/04/18 01/04/18 01/05/18 01/05/18 01/05/18 07:00 15:00 23:00 07:00 15:00 23:00 Intake Total 240 ml 720 ml Output Total 550 ml 400 ml Balance 240 ml 170 ml -400 ml Intake Oral 240 ml 720 ml Output Urine Total 550 ml 400 ml # Voids 3 3 Result Diagram: 01/03/18 0621 Objective Remarks GENERAL: This is a well-nourished, well-developed patient, in no apparent distress. SKIN: No rashes, warm and dry HEAD: Atraumatic. Normocephalic. EYES: Pupils equal round and reactive. Extraocular motions intact. No scleral icterus. ENT: Nose without bleeding, or drainage, Airway patent. NECK: Trachea midline. Supple CARDIOVASCULAR: Regular rate and rhythm without murmurs, gallops, or rubs. RESPIRATORY: Fair air entry bilaterally. No wheezes, rales, or rhonchi. GASTROINTESTINAL: Abdomen soft, non-tender, nondistended. Positive bowel sounds MUSCULOSKELETAL: Extremities without clubbing, cyanosis, or edema. Pedal pulses appreciated, bilateral feet in gauze due to wound NEUROLOGICAL: Awake and alert. Moves all extremity. Normal speech.no focal neurological deficit Procedures See below A/P Problem List: (1) Gout attack ICD Code: M10.9 - Gout, unspecified (2) Hypoglycemia ICD Code: E16.2 - Hypoglycemia, unspecified (3) Atrial fibrillation ICD Code: I48.91 - Unspecified atrial fibrillation (4) Subdural hemorrhage ICD Code: I62.00 - Nontraumatic subdural hemorrhage, unspecified Status: Acute (5) PAD (peripheral artery disease) ICD Code: I73.9 - Peripheral vascular disease, unspecified (6) Leg pain, bilateral ICD Code: M79.604 - Pain in right leg; M79.605 - Pain in left leg (7) Cardiomyopathy ICD Code: I42.9 - Cardiomyopathy, unspecified Status: Chronic (8) CKD (chronic kidney disease) stage 3, GFR 30-59 ml/min ICD Code: N18.3 - Chronic kidney disease, stage 3 (moderate) Assessment and Plan 2/: Still on D10, we discussed his poor oral intake will add in sure and will switch him to regular diet for now Also earlier discussed with ID regarding his lower extremity we'll consult [facility] Will consult nephrology for renal failure Today he complain of swelling in his right hands mostly in the middle finger denied any history of gout in the past 2/2: Right upper extremity ultrasound negative for DVT, arterial study within normal limits, awaiting vascular surgery recommendation, For hypoglycemia continue dextrose, BG around 100 and below on D10, encourage oral intake and ensure 2/3: Discussed with the renal cleared patient for discharge, also cleared by vascular surgery, noticed increased uric acid mostly gouty episode in the right hand continue prednisone follow with PCP as an outpatient 2/4: Stable ready for discharge to waiting for authorization 82 years old male Left-sided subdural hematoma - patient doing well- neurologically neuro check stable Xarelto DC Coagulopathy - received Kcentra. Xarelto DC Recurrent hypoglycemia - ff blood sugars- good readings- on D 10 consider DC D 10 in am good po- regular diet get hemoglobin A1C H/o Afib S/P PM Cardiomyopathy- not in clinical failure Cardiology ff:1) Baseline Afib, Rhythm is mostly paced (not PVCs) with occasional [place] beats Question of wide complex tachycardia, appears to be Afib with aberrancy 2) Interrogation showing Afib Rare NSVT ~3seconds with last episode weeks ago Repeat interrogation (12/30/17) showing no alerts 3) No Syncope Patient denies continue on Lasix 40 mg bid, HCTZ 12.5 mg daily. Lopressor 50 mg bid, KCL ff lytes Bilateral foot /toes ulcers looks ischemic with cold claimed consult Podiatry - patient states he ff with a Podiatry as OP- Dr. Diaz seen by ID- no antibiotics for now Arterial Doppler ordered DALI 1 consulted [facility] appreciate input , ff outpt MALLIKA- likely with underlying CKI Consult nephrology creatinine gradually trending down. good po ff BMP. Renal/Bladder ultrasound showing bladder wall thickening will need follow up with urology as an outpatient Right middle finger swelling rule out gout Check SANJEEV, uric acid level can be helpful 2 weeks after the acute episode Will avoid colchicine or NSAIDs due to kidney failure, will start prednisone 40 mg daily and monitor Discharge Planning Patient authorization from insurance company got rejected I discussed with the nurse and with the community case manager Problem Qualifiers (1) Atrial fibrillation: Qualified Codes: I48.2 - Chronic atrial fibrillation Kareem Sheridan MD Jan 05, 2018 15:49
--- NOTE | 2018-01-05 20:10 | HHI.PR ---
Subjective Remarks Patient seen at bedside this evening. Patient resting comfortably. Denies nausea vomiting fevers and chills. Reports diminished pain to bilateral toes. Objective Vital Signs Date Time Temp Pulse Resp B/P (MAP) Pulse Ox O2 Delivery O2 Flow Rate FiO2 01/05/18 16:18 97.4 80 18 110/83 (92) 97 01/05/18 12:00 97.2 77 18 117/75 (89) 97 01/05/18 08:41 97.2 83 18 111/94 (100) 98 01/05/18 08:00 79 01/05/18 04:50 97.6 79 18 140/88 (105) 94 01/05/18 04:30 83 01/05/18 04:04 Room Air 01/05/18 00:40 97.4 80 18 148/86 (106) 92 01/05/18 00:30 80 01/04/18 22:30 Room Air 01/04/18 20:54 98.4 80 18 133/77 (95) 97 01/04/18 20:30 79 I/O 01/04/18 01/04/18 01/04/18 01/05/18 01/05/18 01/05/18 07:00 15:00 23:00 07:00 15:00 23:00 Intake Total 240 ml 720 ml 240 ml Output Total 550 ml 400 ml Balance 240 ml 170 ml -400 ml 240 ml Intake Oral 240 ml 720 ml 240 ml Output Urine Total 550 ml 400 ml # Voids 3 3 3 # Bowel Movements 1 2 Result Diagram: 01/03/18 0621 Imaging Last Impressions Hand X-Ray 01/02/18 0000 Signed Impressions: Service Date/Time: Tuesday, January 02, 2018 20:59 - CONCLUSION: 1. No acute fracture or dislocation. 2. Joint space narrowing involving the interphalangeal joints and first carpometacarpal joint suggestive of osteoarthritis. Clinical correlation is recommended. Isaiah Jackson MD Upper Extremity Ultrasound 01/01/18 0000 Signed Impressions: Service Date/Time: January 21:22 - CONCLUSION: Normal examination. Rommel Feldman MD Renal Ultrasound 12/30/17 0000 Signed Impressions: Service Date/Time: Saturday, December 30, 2017 15:46 - CONCLUSION: 1. Diffuse urinary bladder wall thickening. 2. 1.2 cm left mid pole renal cyst. 3. Unremarkable right kidney. Isaiah Jackson MD Foot X-Ray 12/30/17 0000 Signed Impressions: Service Date/Time: Saturday, December 30, 2017 14:43 - CONCLUSION: Soft tissue swelling and scattered degenerative changes. Shaq Diaz MD Head CT 12/28/17 0600 Signed Impressions: Service Date/Time: Thursday, December 28, 2017 05:22 - CONCLUSION: Extra axial hemorrhage over the left frontal and parietal lobes likely related to subdural hemorrhage. A parietal component is definite a subdural hemorrhage. The left frontal component has a more elliptical shape raising the possibility of a possible mild epidural hemorrhage versus a subdural hemorrhage in this region. No fracture is seen. There is 4 mm of left to right midline shift. Osman Arreguin MD Objective Remarks Lower extremity physical exam: Vascular: Dorsalis pedis nonpalpable, posterior tibial nonpalpable. Capillary refill time within normal limits to digits 5 bilateral foot. Edema present bilateral lower extremity with no pitting present to foot. Neuro: Gross sensation intact to bilateral lower extremity. Pinpoint sensation decreased. No hyperalgesia noted to bilateral lower extremity Dermatology: Normal temperature and turgor to bilateral lower extremity. Ulceration noted to bilateral medial hallux at proximal nail with stable eschar no associated erythema or drainage, no fluctuance or crepitus noted, no probe to bone noted. Ulceration noted to right second and fourth digit with eschar base no associated erythema or drainage, no fluctuance or crepitus noted, no probing to bone noted. No acute signs of infection to bilateral digit ulcers. Musculoskeletal: Tender to palpation to bilateral digits 5 upon dressing change. Passive dorsiflexion/plantar flexion of bilateral digits. Medications and IVs Current Medications Medications (Trade) Dose Ordered Sig/Daniel Route Start Time Stop Time Status Last Admin (NS Flush) 2 ml UNSCH PRN IV FLUSH 12/27/17 04:15 (NS Flush) 2 ml BID IV FLUSH 12/27/17 09:00 01/05/18 08:52 (Tylenol) 650 mg Q6H PRN PO 12/27/17 04:15 Miscellaneous Information 1 Q361D XX 12/27/17 04:15 12/27/17 04:15 (Chlorhexidine 2% Cloth) Taper DAILY@04 TOP 12/28/17 04:00 12/24/18 03:59 (Chlorhexidine 2% Cloth) 3 pack UNSCH PRN TOP 12/27/17 04:15 (Milk Of Magnesia Liq) 30 ml Q12H PRN PO 12/27/17 04:15 01/05/18 08:52 (Senokot) 17.2 mg Q12H PRN PO 12/27/17 04:15 (Dulcolax Supp) 10 mg DAILY PRN RECTAL 12/27/17 04:15 (Lactulose Liq) 30 ml DAILY PRN PO 12/27/17 04:15 12/29/17 17:44 (Lopressor) 50 mg BID PO 12/27/17 09:00 01/05/18 08:50 (KCl) 20 meq Q12HR PO 12/27/17 09:00 01/05/18 08:50 (Flomax) 0.4 mg DAILY PO 12/27/17 09:00 01/05/18 08:52 (Ultram) 50 mg Q4H PRN PO 12/27/17 07:30 01/01/18 21:22 (Lasix) 40 mg BID@,18 PO 12/27/17 09:00 01/05/18 18:25 (D50w (Vial) Inj) 50 ml UNSCH PRN IV PUSH 12/27/17 08:00 12/28/17 04:20 (Glucagon Inj) 1 mg UNSCH PRN OTHER 12/27/17 08:00 (Keppra) 500 mg Q12HR PO 12/27/17 09:00 01/05/18 08:50 (Santyl Oint) 1 applic BID TOPICAL 12/28/17 21:00 01/05/18 09:00 Dextrose 1,000 ml @ 30 mls/hr Q24H IV 12/29/17 16:00 01/05/18 09:45 (Deltasone) 40 mg DAILY PO 01/01/18 15:45 01/05/18 08:51 Assessment and Plan Assessment and Plan 82-year-old male with bilateral hallux ulcers as well as right second and fourth digital ulcers Patient examined and evaluated with all questions answered Patient is well known to me and is seen regularly in clinic for ulcer management Ulcers are stable with no acute infection Appreciate Dr. Chang's consult Patient to follow up with vascular surgery as outpatient Would benefit from vascular intervention per Dr. Andres Continue with local wound care consisting of Santyl with moist to dry dressings Patient to follow up within 1 week of discharge in office with Dr. Cruz Dressings changed to bilateral lower extremity with Santyl and moist to dry dressing. Stephani Cruz DPM Jan 05, 2018 20:10
[2018-01-06] VITALS (9 sets, daily range): BP systolic 111–141; BP diastolic 59–103; PULSE 65–90; RESP 18–20; TEMP 97.5–98.2; O2SAT 92–98
[2018-01-06] MEDS: CHLORHEXIDINE GLUCONATE 2 % 1 PACK (2 CLOTHS) TOP SCH (04:00)
[2018-01-06] MEDS: POTASSIUM CHLORIDE 20 MEQ CONTROLLED RELEASE TAB PO SCH ×2 (08:09→21:55)
[2018-01-06] MEDS: levETIRAcetam 500 MG TAB PO SCH ×2 (08:10→21:55)
[2018-01-06] MEDS: TAMSULOSIN HCL 0.4 MG CAP PO SCH (08:10)
[2018-01-06] MEDS: predniSONE 20 MG TAB PO SCH (08:10)
[2018-01-06] MEDS: METOPROLOL TARTRATE 50 MG TAB PO SCH ×2 (08:10→21:55)
[2018-01-06] MEDS: FUROSEMIDE 40 MG TAB PO SCH ×2 (08:10→17:05)
[2018-01-06] MEDS: SODIUM CHLORIDE 0.9% FLUSH 10 ML FLUSH IV FLUSH SCH ×2 (08:10→21:55)
[2018-01-06] MEDS: COLLAGENASE OINT 30 GM TUBE TOPICAL SCH ×2 (08:11→23:19)
[2018-01-06] MEDS ORDERED: GLUCAGON 1 MG/ML VIAL OTHER PRN (10:30)
[2018-01-06] MEDS ORDERED: DEXTROSE 50% IN WATER 50 ML VIAL(D50) IV PUSH PRN (10:30)
[2018-01-06] MEDS: INSULIN ASPART SUPPLEMENTAL SCALE SQ SCH ×3 (12:06→21:55)
--- NOTE | 2018-01-06 13:27 | HHI.PR ---
Subjective Remarks Patient sitting on his chair Denied acute complain He is frustrated for not being able to transfer or getting discharged to rehab Objective Vitals Vital Signs Date Time Temp Pulse Resp B/P (MAP) Pulse Ox O2 Delivery O2 Flow Rate FiO2 01/06/18 12:31 97.6 80 20 122/85 (97) 94 01/06/18 08:36 97.6 90 20 141/103 (116) 92 01/06/18 08:25 Room Air 01/06/18 04:00 98.2 80 18 111/86 (94) 94 01/06/18 04:00 65 01/06/18 00:00 97.8 80 18 133/96 (108) 94 01/06/18 00:00 74 01/05/18 20:00 97.9 59 18 140/85 (103) 96 01/05/18 19:58 Room Air 01/05/18 16:18 97.4 80 18 110/83 (92) 97 I/O 01/05/18 01/05/18 01/05/18 01/06/18 01/06/18 01/06/18 07:00 15:00 23:00 07:00 15:00 23:00 Intake Total 240 ml Output Total 400 ml Balance -400 ml 240 ml Intake Oral 240 ml Output Urine Total 400 ml # Voids 3 6 # Bowel Movements 1 2 Result Diagram: 01/03/18 0621 Objective Remarks GENERAL: This is a well-nourished, well-developed patient, in no apparent distress. SKIN: No rashes, warm and dry HEAD: Atraumatic. Normocephalic. EYES: Pupils equal round and reactive. Extraocular motions intact. No scleral icterus. ENT: Nose without bleeding, or drainage, Airway patent. NECK: Trachea midline. Supple CARDIOVASCULAR: Regular rate and rhythm without murmurs, gallops, or rubs. RESPIRATORY: Fair air entry bilaterally. No wheezes, rales, or rhonchi. GASTROINTESTINAL: Abdomen soft, non-tender, nondistended. Positive bowel sounds MUSCULOSKELETAL: Extremities without clubbing, cyanosis, or edema. Pedal pulses appreciated, bilateral feet in gauze due to wound NEUROLOGICAL: Awake and alert. Moves all extremity. Normal speech.no focal neurological deficit Procedures See below A/P Problem List: (1) Gout attack ICD Code: M10.9 - Gout, unspecified (2) Hypoglycemia ICD Code: E16.2 - Hypoglycemia, unspecified (3) Atrial fibrillation ICD Code: I48.91 - Unspecified atrial fibrillation (4) Subdural hemorrhage ICD Code: I62.00 - Nontraumatic subdural hemorrhage, unspecified Status: Acute (5) PAD (peripheral artery disease) ICD Code: I73.9 - Peripheral vascular disease, unspecified (6) Leg pain, bilateral ICD Code: M79.604 - Pain in right leg; M79.605 - Pain in left leg (7) Cardiomyopathy ICD Code: I42.9 - Cardiomyopathy, unspecified Status: Chronic (8) CKD (chronic kidney disease) stage 3, GFR 30-59 ml/min ICD Code: N18.3 - Chronic kidney disease, stage 3 (moderate) Assessment and Plan 01/05: I was asked by the case packer to call the health insurance physician as a peer to peer to argue about the decline of rehab transfer, I instructed MDR team that the patient need rehab for occupational and physical therapy purposes note for medical one, therefore I requested from physical therapy to provide me with significant information to support our argument to obtain agreement from insurance company. After lengthy [id number] and discussion with the case packer and the PT, as well as the insurance company "[employer]" agent who told us that the problem is with submitting older PT note which made the patient does not fit criteria for rehab, I explained to the case management that submitting document should be updated in order to avoid delay on the discharge I called the numberi was given by the CM , but they needed specific info aboutthe pt such as ID member # and so forth so i had the bilingual secretary tarsha call to the CM to provide those insurance details . Important addendum: I received a call from the Veric[facility] physician around 630 pm yesterday, I discussed with him the case and the final result of the discussion he recommended repeating the PT evaluation and then calling him around 2 PM his # [phone] 82 years old male Left-sided subdural hematoma - patient doing well- neurologically neuro check stable Xarelto DC Coagulopathy - received Kcentra. Xarelto DC Recurrent hypoglycemia - ff blood sugars- good readings- on D 10 consider DC D 10 in am good po- regular diet get hemoglobin A1C H/o Afib S/P PM Cardiomyopathy- not in clinical failure Cardiology ff:1) Baseline Afib, Rhythm is mostly paced (not PVCs) with occasional [place] beats Question of wide complex tachycardia, appears to be Afib with aberrancy 2) Interrogation showing Afib Rare NSVT ~3seconds with last episode weeks ago Repeat interrogation (12/30/17) showing no alerts 3) No Syncope Patient denies continue on Lasix 40 mg bid, HCTZ 12.5 mg daily. Lopressor 50 mg bid, KCL ff lytes Bilateral foot /toes ulcers looks ischemic with cold claimed consult Podiatry - patient states he ff with a Podiatry as OP- Dr. Diaz seen by ID- no antibiotics for now Arterial Doppler ordered DALI 1 [facility] appreciate input , ff outpt MALLIKA- likely with underlying CKI Consult nephrology creatinine gradually trending down. good po ff BMP. Renal/Bladder ultrasound showing bladder wall thickening will need follow up with urology as an outpatient Right middle finger swelling rule out gout Check SANJEEV, uric acid level can be helpful 2 weeks after the acute episode Will avoid colchicine or NSAIDs due to kidney failure, will start prednisone 40 mg daily and monitor Discharge Planning Patient ready for discharge however authorization from insurance company has been rejected due to submitting older PT Assessment Problem Qualifiers (1) Atrial fibrillation: Qualified Codes: I48.2 - Chronic atrial fibrillation Kareem Sheridan MD Jan 06, 2018 13:27
[2018-01-07] VITALS (10 sets, daily range): BP systolic 119–131; BP diastolic 77–97; PULSE 53–82; RESP 18–20; TEMP 97.4–98.4; O2SAT 92–98
[2018-01-07] MEDS: CHLORHEXIDINE GLUCONATE 2 % 1 PACK (2 CLOTHS) TOP SCH (04:00)
[2018-01-07] MEDS: INSULIN ASPART SUPPLEMENTAL SCALE SQ SCH ×4 (07:58→21:25)
[2018-01-07] MEDS: levETIRAcetam 500 MG TAB PO SCH ×2 (07:59→21:14)
[2018-01-07] MEDS: FUROSEMIDE 40 MG TAB PO SCH ×2 (07:59→17:43)
[2018-01-07] MEDS: TAMSULOSIN HCL 0.4 MG CAP PO SCH (07:59)
[2018-01-07] MEDS: METOPROLOL TARTRATE 50 MG TAB PO SCH ×2 (08:00→21:14)
[2018-01-07] MEDS: predniSONE 20 MG TAB PO SCH (08:00)
[2018-01-07] MEDS: POTASSIUM CHLORIDE 20 MEQ CONTROLLED RELEASE TAB PO SCH (08:00)
[2018-01-07] MEDS: SODIUM CHLORIDE 0.9% FLUSH 10 ML FLUSH IV FLUSH SCH ×2 (08:01→21:14)
--- NOTE | 2018-01-07 13:58 | HHI.PR ---
Subjective Remarks Follow-up for small subdural hemorrhage, atrial fibrillation, bilateral foot ulcers. Patient is currently doing well. Sitting in his chair. He reports that he was able to walk to the hallway with his walker. However, his gastric patient's who is concerned about safety at home given patient's condition. She is concerned that patient has incontinence and not stable as well as confused. PT and OT has recommended SNF placement so far. Objective Vitals Vital Signs Date Time Temp Pulse Resp B/P (MAP) Pulse Ox O2 Delivery O2 Flow Rate FiO2 01/07/18 11:33 97.5 80 20 119/77 (91) 93 01/07/18 08:09 97.6 79 20 126/90 (102) 92 01/07/18 03:30 97.9 80 18 130/88 (102) 98 01/07/18 00:43 97.4 76 18 127/91 (103) 93 01/07/18 00:00 81 01/06/18 21:55 Room Air 01/06/18 20:33 97.5 75 18 117/59 (78) 94 01/06/18 20:00 83 01/06/18 16:29 98.0 79 20 121/95 (104) 98 01/06/18 16:00 88 I/O 01/06/18 01/06/18 01/06/18 01/07/18 01/07/18 01/07/18 07:00 15:00 23:00 07:00 15:00 23:00 Intake Total 1100 ml 700 ml Output Total 400 ml Balance 1100 ml 300 ml Intake Oral 600 ml 700 ml IV Total 500 ml Output Urine Total 400 ml # Voids 9 # Bowel Movements 0 0 Result Diagram: 01/03/18 0621 Imaging Last Impressions Hand X-Ray 01/02/18 0000 Signed Impressions: Service Date/Time: Tuesday, January 02, 2018 20:59 - CONCLUSION: 1. No acute fracture or dislocation. 2. Joint space narrowing involving the interphalangeal joints and first carpometacarpal joint suggestive of osteoarthritis. Clinical correlation is recommended. Isaiah Jackson MD Upper Extremity Ultrasound 01/01/18 0000 Signed Impressions: Service Date/Time: January 21:22 - CONCLUSION: Normal examination. Rommel Feldman MD Renal Ultrasound 12/30/17 0000 Signed Impressions: Service Date/Time: Saturday, December 30, 2017 15:46 - CONCLUSION: 1. Diffuse urinary bladder wall thickening. 2. 1.2 cm left mid pole renal cyst. 3. Unremarkable right kidney. Isaiah Jackson MD Foot X-Ray 12/30/17 0000 Signed Impressions: Service Date/Time: Saturday, December 30, 2017 14:43 - CONCLUSION: Soft tissue swelling and scattered degenerative changes. Shaq Diaz MD Head CT 12/28/17 0600 Signed Impressions: Service Date/Time: Thursday, December 28, 2017 05:22 - CONCLUSION: Extra axial hemorrhage over the left frontal and parietal lobes likely related to subdural hemorrhage. A parietal component is definite a subdural hemorrhage. The left frontal component has a more elliptical shape raising the possibility of a possible mild epidural hemorrhage versus a subdural hemorrhage in this region. No fracture is seen. There is 4 mm of left to right midline shift. Osman Arreguin MD Objective Remarks GENERAL: Alert, NAD. SKIN: Warm and dry. HEAD: Normocephalic. EYES: No scleral icterus. No injection or drainage. NECK: Supple, trachea midline. No JVD or lymphadenopathy. CARDIOVASCULAR: Regular rate and rhythm without murmurs, gallops, or rubs. RESPIRATORY: Breath sounds equal bilaterally. No accessory muscle use. GASTROINTESTINAL: Abdomen soft, non-tender, nondistended. MUSCULOSKELETAL: No cyanosis, or edema. BACK: Nontender without obvious deformity. No CVA tenderness. Procedures None A/P Problem List: (1) Subdural hemorrhage ICD Code: I62.00 - Nontraumatic subdural hemorrhage, unspecified Status: Acute (2) Atrial fibrillation ICD Code: I48.91 - Unspecified atrial fibrillation (3) Gout attack ICD Code: M10.9 - Gout, unspecified (4) Hypoglycemia ICD Code: E16.2 - Hypoglycemia, unspecified (5) PAD (peripheral artery disease) ICD Code: I73.9 - Peripheral vascular disease, unspecified (6) Leg pain, bilateral ICD Code: M79.604 - Pain in right leg; M79.605 - Pain in left leg (7) Cardiomyopathy ICD Code: I42.9 - Cardiomyopathy, unspecified Status: Chronic (8) CKD (chronic kidney disease) stage 3, GFR 30-59 ml/min ICD Code: N18.3 - Chronic kidney disease, stage 3 (moderate) Assessment and Plan Mr. Aly is an 82-year-old patient who was transferred from [facility] due to subdural hematoma. Patient received Keppra 1 g IV, Concentra 2500 units IV, aspirin 324 mg at [facility]. - Left sided subdural hemorrhage - Neurosurgery followed patient. No surgical management. Neurosurgery cleared for rehab placement. - PT/OT recommends SNF placement. However, insurance has denied SNF placement so far. Repeat PT/OT notes to be reviewed by insurance company today for further consideration. - Patient's is not comfortable for him to go home yet. She would prefer him to go to a SNF in [place], [place] (near patient's house and near his other medical providers). - Continue Keppra 500 mg every 12 hours. - Atrial fibrillation - Cardiomyopathy - Xarelto discontinued - Patient will discuss with his Appeals Reviewer Veteran regarding re-starting anti- coagulation in future. Apixaban could be considered given lesser risk of ICH with apixaban. - Continue metoprolol 50 mg twice a day. - Continue Lasix 40 mg by mouth twice a day - Bilateral foot ulcers - Podiatry and Vascular surgery evaluated patient. No acute concerns. - Acute kidney injury - CKD stage 3 - Patient follows up with outpatient import specialist. - His baseline Cr 2.24 - 1.71. - Avoid nephrotoxins. Full code. SCDs, ambulation. Discussed with Patient, his and CM. Problem Qualifiers (1) Atrial fibrillation: Qualified Codes: I48.2 - Chronic atrial fibrillation Erick Valencia DO Jan 07, 2018 1:58 pm
[2018-01-07] MEDS: COLLAGENASE OINT 30 GM TUBE TOPICAL SCH (21:15)
[2018-01-08] VITALS (7 sets, daily range): BP systolic 124–149; BP diastolic 91–111; PULSE 82–92; RESP 18–20; TEMP 97.2–98.2; O2SAT 93–96
[2018-01-08] MEDS: CHLORHEXIDINE GLUCONATE 2 % 1 PACK (2 CLOTHS) TOP SCH (03:17)
[2018-01-08] MEDS: FUROSEMIDE 40 MG TAB PO SCH (07:36)
[2018-01-08] MEDS: levETIRAcetam 500 MG TAB PO SCH (07:36)
[2018-01-08] MEDS: predniSONE 20 MG TAB PO SCH (07:37)
[2018-01-08] MEDS: TAMSULOSIN HCL 0.4 MG CAP PO SCH (07:37)
[2018-01-08] MEDS: METOPROLOL TARTRATE 50 MG TAB PO SCH (07:37)
[2018-01-08] MEDS: INSULIN ASPART SUPPLEMENTAL SCALE SQ SCH (07:37)
[2018-01-08] MEDS: SODIUM CHLORIDE 0.9% FLUSH 10 ML FLUSH IV FLUSH SCH (07:38)
[2018-01-08] MEDS: COLLAGENASE OINT 30 GM TUBE TOPICAL SCH (07:38)
[2018-01-08] MEDS ORDERED: TORS10TA2 PO (13:05)
--- NOTE | 2018-01-08 13:14 | HHI.DS ---
Discharge Summary Admission Date Dec 27, 2017 at 3:55 am Discharge Date: Jan 08, 2018 Admitting Diagnosis Left Subdural Hematoma (1) Subdural hemorrhage ICD Code: I62.00 - Nontraumatic subdural hemorrhage, unspecified Status: Acute (2) Atrial fibrillation ICD Code: I48.91 - Unspecified atrial fibrillation (3) Gout attack ICD Code: M10.9 - Gout, unspecified (4) Hypoglycemia ICD Code: E16.2 - Hypoglycemia, unspecified (5) PAD (peripheral artery disease) ICD Code: I73.9 - Peripheral vascular disease, unspecified (6) Leg pain, bilateral ICD Code: M79.604 - Pain in right leg; M79.605 - Pain in left leg (7) Cardiomyopathy ICD Code: I42.9 - Cardiomyopathy, unspecified Status: Chronic (8) CKD (chronic kidney disease) stage 3, GFR 30-59 ml/min ICD Code: N18.3 - Chronic kidney disease, stage 3 (moderate) Procedures None Brief History - From Admission HPI 82 male transferred from [facility] due to a subdural hematoma on the left of mixed attenuation up to 10 mm in maximal width. He reports that at the point of wound care of his feet he developed some weakness in the hands when he was holding a flashlight. No loss of consciousness reported. The patient takes Xarelto for atrial fibrillation. Patient underwent ICD/pacemaker placement by Dr. He in late 2017. Onset sudden. He has had no weakness or neurologic complaints since. He denies trauma that he can remember. Patient was transferred from [facility] after being accepted by Dr. Brown from neurosurgery as his head CT showed left sided subdural hematoma of mixed attenuation (10 mm). He is being admitted to the critical care medicine service. I evaluated the patient following his arrival to the ICU. At that time he was resting comfortably and denied any headache, chest pain, palpitations, dizziness, nausea or any visual disturbance. He and his said that he was back in his normal state without any weakness. He does have a history of kidney problems and leg swelling as well as chronic leg wounds for which he has been followed by wound care and a block cutter. He is prediabetic. Of note patient received Keppra 1 g IV, Kcentra 2500 units IV, aspirin 324 mg at [facility]. His ICD was interrogated per family however results not available to me at this time, will follow-up. History PFSH Past Medical History Cancer: Yes (KIDNEY) Chest Pain: No Diabetes: No (Pre-diabetic) Gastrointestinal Disorders: Yes (KIDNEY CA) Glaucoma: No Hepatitis: No Hiatal Hernia: No Hypertension: Yes Integumentary: No Thyroid Disease: No Atrial fibrillation, ablation/ICD placement for arrhythmia that at [facility] in late 2016, cardiomyopathy, renal cancer status post cryoablation, BPH, sleep apnea, IBD Social History Tobacco Use: Yes (FORMER) Allergies-Medications Allergies-Medications (Allergen,Severity, Reaction): Coded Allergies: No Known Allergies (Unverified , 09/14/13) Reported Meds & Prescriptions Reported Meds & Active Scripts Active Keflex (Cephalexin) 500 Mg Cap 500 Mg PO Q8H Reported Xarelto (Rivaroxaban) 15 Mg Tab 15 Mg PO DAILY Tamsulosin (Tamsulosin HCl) 0.4 Mg Cap 0.4 Mg PO DAILY Metoprolol Tartrate 50 Mg Tab 50 Mg PO BID Lisinopril 40 Mg Tab 40 Mg PO BID Klor-Con M20 (Potassium Chloride Microencaps) 20 Meq Tab 20 Meq PO Q12HR Furosemide 40 Mg Tab 40 Mg PO BID ROS Review of Systems Except as stated in HPI: all other systems reviewed are Neg General / Constitutional: No: Fever Imaging Last Impressions Hand X-Ray 01/02/18 0000 Signed Impressions: Service Date/Time: Tuesday, January 02, 2018 20:59 - CONCLUSION: 1. No acute fracture or dislocation. 2. Joint space narrowing involving the interphalangeal joints and first carpometacarpal joint suggestive of osteoarthritis. Clinical correlation is recommended. Isaiah Jackson MD Upper Extremity Ultrasound 01/01/18 0000 Signed Impressions: Service Date/Time: January 21:22 - CONCLUSION: Normal examination. Rommel Feldman MD Renal Ultrasound 12/30/17 0000 Signed Impressions: Service Date/Time: Saturday, December 30, 2017 15:46 - CONCLUSION: 1. Diffuse urinary bladder wall thickening. 2. 1.2 cm left mid pole renal cyst. 3. Unremarkable right kidney. Isaiah Jackson MD Foot X-Ray 12/30/17 0000 Signed Impressions: Service Date/Time: Saturday, December 30, 2017 14:43 - CONCLUSION: Soft tissue swelling and scattered degenerative changes. Shaq Diaz MD Head CT 12/28/17 0600 Signed Impressions: Service Date/Time: Thursday, December 28, 2017 05:22 - CONCLUSION: Extra axial hemorrhage over the left frontal and parietal lobes likely related to subdural hemorrhage. A parietal component is definite a subdural hemorrhage. The left frontal component has a more elliptical shape raising the possibility of a possible mild epidural hemorrhage versus a subdural hemorrhage in this region. No fracture is seen. There is 4 mm of left to right midline shift. Osman Arreguin MD PE at Discharge GENERAL: Alert, NAD. SKIN: Warm and dry. HEAD: Normocephalic. EYES: No scleral icterus. No injection or drainage. NECK: Supple, trachea midline. No JVD or lymphadenopathy. CARDIOVASCULAR: Regular rate and rhythm without murmurs, gallops, or rubs. RESPIRATORY: Breath sounds equal bilaterally. No accessory muscle use. GASTROINTESTINAL: Abdomen soft, non-tender, nondistended. MUSCULOSKELETAL: No cyanosis, or edema. BACK: Nontender without obvious deformity. No CVA tenderness. Pt update on day of discharge Patient is doing well. No acute concerns. Wants to go to SNF today. Hospital Course Mr. Aly is an 82-year-old patient who was transferred from [facility] due to subdural hematoma. Patient received Keppra 1 g IV, Concentra 2500 units IV, aspirin 324 mg at [facility]. - Left sided subdural hemorrhage - Neurosurgery followed patient. No surgical management. Neurosurgery cleared for rehab placement. - Aspirin, Xarelto discontinued. Patient will discuss with English Professor regarding future need for anti-coagulation. - PT/OT recommends SNF placement. Discussed with Insurance company physician on 01/07/2018. Patient was approved for SNF placement. - She would prefer him to go to a SNF in [place], [place] (near patient's house and near his other medical providers). - Continue Keppra 500 mg every 12 hours. - Atrial fibrillation - Cardiomyopathy - Xarelto discontinued - Patient will discuss with his English Professor regarding re-starting anti- coagulation in future. Apixaban could be considered given lesser risk of ICH with apixaban. - Continue metoprolol 50 mg twice a day. - Will continue Torsemide 10mg BID on discharge. Check BMP in one week. - Bilateral foot ulcers - Podiatry and Vascular surgery evaluated patient. No acute concerns. - Acute kidney injury - CKD stage 3 - Patient follows up with outpatient director of institutional research. - His baseline Cr 2.24 - 1.71. - Avoid nephrotoxins. Full code. SCDs, ambulation. Pt Condition on Discharge: Fair Discharge Disposition: Discharge to SNF Discharge Time: > 30 minutes Discharge Instructions DIET: Follow Instructions for: Heart Healthy Diet, Diabetic Diet, Renal Failure Diet Activities you can perform: See Additionl Instruction Other Activity Instructions: per PT Follow up Referrals: Nephrology - 10 Days with Marisol Mendosa MD Neurosurgery @ Neurosurgical - Dr Brown with Robinson Brown MD Podiatry - 10 Days with Britt Chang DPM Vascular Surgery - 10 Days with Isaiah Andres MD Your follow up appointment is on 01/30/18 @ 0930 with a surveillance DALI New Orders: BASIC METABOLIC PROF - 1 Week New Medications: Torsemide (Torsemide) 10 Mg Tab 10 MG PO BID for fluid, #60 TAB 0 Refills Levetiracetam (Keppra) 500 Mg Tab 500 MG PO Q12HR for proph, #60 TAB Continued Medications: Metoprolol Tartrate (Metoprolol Tartrate) 50 Mg Tab 50 MG PO BID, #60 TAB 0 Refills Tamsulosin (Tamsulosin) 0.4 Mg Cap 0.4 MG PO DAILY for Manage Prostate Problems, #30 CAP 0 Refills Discontinued Medications: Aspirin (Aspirin) 325 Mg Tab 325 MG PO DAILY, #30 TAB 0 Refills Bumetanide (Bumetanide) 0.5 Mg Tab 1 MG PO BID, TAB 0 Refills Hydrochlorothiazide (Hydrochlorothiazide) 12.5 Mg Cap 12.5 MG PO DAILY, #30 CAP 0 Refills Rivaroxaban (Xarelto) 15 Mg Tab 15 MG PO DAILY for Blood Clot Prevention, TAB 0 Refills Erick Valencia DO Jan 08, 2018 13:14
== END 2018-01-08 15:40 | DRG 65 ==
LOC: NEPC 02:53 → NEDA 03:55 → N03A 05:27 → N05B 12-29 22:06
PROVIDERS: ADMIT Hospitalist; ATTEND Hospitalist
DX: I62.00 Nontraumatic subdural hemorrhage, unspecified (principal); I42.9 Cardiomyopathy, unspecified; N17.9 Acute kidney failure, unspecified; D68.9 Coagulation defect, unspecified; I13.0 Hypertensive heart and chronic kidney disease with heart failure and stage 1 through stage 4 chronic kidney disease, or unspecified chronic kidney disease; I50.9 Heart failure, unspecified; N18.3 Chronic kidney disease, stage 3 (moderate); I48.91 Unspecified atrial fibrillation; Z79.02 Long term (current) use of antithrombotics/antiplatelets; Z95.810 Presence of automatic (implantable) cardiac defibrillator; N40.0 Benign prostatic hyperplasia without lower urinary tract symptoms; M10.9 Gout, unspecified; L97.519 Non-pressure chronic ulcer of other part of right foot with unspecified severity; L97.529 Non-pressure chronic ulcer of other part of left foot with unspecified severity; I73.9 Peripheral vascular disease, unspecified; R73.03 Prediabetes; E16.2 Hypoglycemia, unspecified; G47.30 Sleep apnea, unspecified; E78.5 Hyperlipidemia, unspecified; Z85.528 Personal history of other malignant neoplasm of kidney; Z87.891 Personal history of nicotine dependence; Z23 Encounter for immunization
CPT/HCPCS: 70450; 73130; 73630; 76775; 80048; 80053; 82947; 82948; 83036; 83735; 84100; 84550; 85025; 85027; 85610; 85652; 85730; 86038; 86140; 87641; 90686; 90732; 93923; 93971; J3430; J7030; J7042; J7512; Q2038